=== PATIENT | male | born 1935 | race Caucasian/White ===

== ENCOUNTER 2018-10-06 08:27 | Inpatient (IN) | payer MEDICARE, OTHER ==
[2018-10-06] VITALS (15 sets, daily range): BP systolic 106–134; BP diastolic 65–101
[~2018-10-06] VITALS: Ht 177.8 cm; Wt 78.4 kg
[2018-10-06] MEDS ORDERED: PIPERACILLIN SODIUM/TAZOBACTAM 4.5 GM in NS (IVPB) 100 ML IV SCH (12:00)
--- NOTE | 2018-10-06 12:01 | History & Physical-Hospitalist ---
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 He states that he was seen by his PCP 1 week ago and told he had bronchitis and started on a z pack and prednisone. Despite this he continued to worsen. He reports vague symptoms though of his worsening. He states he "just didn't feel right" and "had a gut feeling" something was wrong. He denies fevers and when asked states he has been coughing up blood clots. He denies any other bleeding. He was found to have an INR of 11.9 though there. He was also found to meet sepsis criteria with a leukocytosis and tachycardia. He was transferred here for admission due to staffing at outside facility. Exam Limitations: no limitations Date Seen 10/06/18 Time Seen by a Provider: 11:55 Attending Physician Tammie Anne MD PCP Joséu Hager MD Referring Physician Date of Admission Home Medications & Allergies Home Medications Reviewed patient Home Medication Reconciliation performed by pharmacy medication reconciliations fiberglass technician and/or nursing. Patients Allergies have been reviewed. Allergies Allergies Coded Allergies morphine (Verified Adverse Reaction, Unknown, 10/06/18) confusion Past Vnttutd-Wkssoa-Jrxkma Hx Past Med/Social Hx: Reviewed Nursing Past Med/Soc Hx Patient Social History Alcohol Use: Regular Use (2-3 shots of jagermeister daily) Alcohol Beverage of Choice: Other Recreational Drug Use: No Smoking Status: Former Smoker (quit 2 years ago) Type Used: Cigarettes Physical Abuse Screen: No Sexual Abuse: No Recent Foreign Travel: No Contact w/other who traveled: No Recent Hopitalizations: Yes Recent Infectious Disease Expo: No Immunizations Up To Date Pediatric: No Date of Pneumonia Vaccine: Sep 18, 2018 Date of Influenza Vaccine: Aug 06, 2018 Seasonal Allergies Seasonal Allergies: No Past Medical History Currently Using CPAP: No Currently Using BIPAP: No Cardiac: Deep Vein Thrombosis, High Cholesterol Genitourinary: Benign Prostatic Hyperpl Musculoskeletal: Arthritis, Back Injury, Scoliosis History of Blood Disorders: No Adverse Reaction to Blood Romero: No Family History Reviewed Nursing Family Hx Review of Systems Constitutional: see HPI EENTM: no symptoms reported Respiratory: cough, dyspnea on exertion, hemoptysis, short of breath Cardiovascular: no symptoms reported Gastrointestinal: no symptoms reported Genitourinary: no symptoms reported Musculoskeletal: no symptoms reported Skin: no symptoms reported Psychiatric/Neurological: No Symptoms Reported Physical Exam Physical Exam Vital Signs Vital Signs - First Documented 10/06/18 11:21 Temp 98.2 Capillary Refill : Height, Weight, BMI Height: 5'10.00" Weight: 177lbs. 9.0oz. 80.037521gz; 25.5 BMI Method: General Appearance: No Apparent Distress, Chronically ill Respiratory: Decreased Breath Sounds; No Wheezing Cardiovascular: No Murmur, Tachycardia Gastrointestinal: Normal Bowel Sounds, Non Tender, Soft Extremity: No Calf Tenderness, No Pedal Edema Neurologic/Psychiatric: Alert, Oriented x3 Results Results/Procedures Labs Patient resulted labs reviewed. Assessment/Plan Admission Diagnosis Sepsis, supratherapeutic INR Admission Status: Inpatient Order (span 2 midnights) Reason for Inpatient Admission: Failed outpatient antibiotics, on 10lpm oxygne- new requirement, will take more than two midnights to stablize Diagnosis/Problems Diagnosis/Problems (1) Sepsis Status: Acute Assessment & Plan: Leukocytosis with tachycardia Received Levaquin at outside facility Given INR switch to Zosyn Lactic acid normal at OSH Await cultures Qualifiers: Sepsis type: sepsis due to unspecified organism Qualified Codes: A41.9 - Sepsis, unspecified organism (2) CAP (community acquired pneumonia) Assessment & Plan: CXR per OSH Antibiotics as above Pulm consulted, appreciate recs Qualifiers: Laterality: left Lung location: lower lobe of lung Qualified Codes: J18.1 - Lobar pneumonia, unspecified organism (3) Acute respiratory failure Assessment & Plan: Hypoxemic on ABG from outside facility Requiring 10lpm via HFNC currently DNR Pulm consulted MAT protocol Palliative Care consult placed Qualifiers: Respiratory failure complication: hypoxia Qualified Codes: J96.01 - Acute respiratory failure with hypoxia (4) Supratherapeutic INR Assessment & Plan: INR 11.9 at OSH Likely multifactorial to abx use and alcohol use with chronic coumadin DVT diagnosed in April- march be able to DC anticoagulation at DC Received Vitamin K Will repeat INR (5) DVT (deep venous thrombosis) Status: Acute Assessment & Plan: Diagnosed in April and was to complete treatment in October Patient unsure of date Hold Warfarin Qualifiers: DVT location: lower extremity Affected thrombotic vein of extremity: unspecified vein of extremity Chronicity: unspecified Laterality: left Qualified Codes: I82.402 - Acute embolism and thrombosis of unspecified deep veins of left lower extremity (6) Alcohol dependence Assessment & Plan: Reports regular use CIWA protocol Qualifiers: Substance use status: unspecified alcohol-induced disorder Qualified Codes : F10.29 - Alcohol dependence with unspecified alcohol-induced disorder (7) Counseling regarding end of life decision making Assessment & Plan: Given high oxygen demands discussed with patient about potential escalation of care States he would like to be a DNR and unsure about BiPAP use No DPOA assigned but verbal stated son Sam as emergency contact ([phone]) Palliative Care Consult placed Clinical Quality Measures DVT/VTE Risk/Contraindication: Risk Factor Score Per Nursin RFS Level Per Nursing on Admit: 4+=Very High TAMMIE ANNE MD Oct 06, 2018 12:01
[2018-10-06] MEDS ORDERED: PIPERACILLIN/TAZO 4.5 GM/NS 100 ML IV NR ×2 (12:15)
[2018-10-06] MEDS ORDERED: CATHETER FLUSH 10 ML SYR IV PRN (12:30)
[2018-10-06] MEDS ORDERED: RT-ALBUTEROL/IPRATROPIUM 3 ML (DUONEB) VIAL INH PRN (12:30)
[2018-10-06] MEDS: CATHETER FLUSH 10 ML SYR IV SCH ×3 (12:59→23:20)
--- NOTE | 2018-10-06 13:01 | Pulmonary Consultation ---
History of Present Illness History of Present Illness Date of Consultation 10/06/18 12:56 Date of Admission Allergies and Home Medications Allergies Coded Allergies: morphine (Verified Adverse Reaction, Unknown, 10/06/18) confusion Past Ujikwvj-Ktoglg-Hvotot Hx Past Med/Social Hx: Reviewed Nursing Past Med/Soc Hx Patient Social History Alcohol Use: Regular Use (2-3 shots of jagermeister daily) Alcohol Beverage of Choice: Other Recreational Drug Use: No Smoking Status: Former Smoker (quit 2 years ago) Type Used: Cigarettes Recent Foreign Travel: No Contact w/Someone Who Travel: No Recent Infectious Disease Expo: No Recent Hopitalizations: Yes Immunizations Up To Date PED Vaccines UTD: No Date of Pneumonia Vaccine: Sep 18, 2018 Date of Influenza Vaccine: Aug 06, 2018 Seasonal Allergies Seasonal Allergies: No Past Medical History Surgeries: Yes Respiratory: Yes Pneumonia, COPD Currently Using CPAP: No Currently Using BIPAP: No Cardiac: Yes Deep Vein Thrombosis, High Cholesterol Neurological: No Genitourinary: Yes Benign Prostatic Hyperpl Gastrointestinal: Yes (duodenitis) Musculoskeletal: Yes Arthritis, Back Injury, Scoliosis Endocrine: No HEENT: No Cancer: No Psychosocial: No Integumentary: No Blood Disorders: No Adverse Reaction/Blood Tranf: No Family Medical History Reviewed Nursing Family Hx Sepsis Event Evaluation Height, Weight, BMI Height: 5'10.00" Weight: 177lbs. 9.0oz. 80.521037zu; 25.5 BMI Method: Exam Exam Vital Signs Date Time Temp Pulse Resp B/P (MAP) Pulse Ox O2 Delivery O2 Flow Rate FiO2 10/06/18 12:10 92 High Flow N/C 10.00 10/06/18 12:10 105 92 10/06/18 11:21 98.2 10/06/18 10:43 109 Height & Weight Height: 5'10.00" Weight: 177lbs. 9.0oz. 80.153594fw; 25.5 BMI Method: General Appearance: No Apparent Distress, Chronically ill Respiratory: Decreased Breath Sounds; No Wheezing Cardiovascular: No Murmur, Tachycardia Extremity: No Calf Tenderness, No Pedal Edema Neurologic/Psychiatric: Alert, Oriented x3 Assessment/Plan Assessment/Plan Acute respiratory failure with hypoxia -Oxygen - will add Vapotherm Pneumonia with sepsis -Agree with Zosyn -Check Ct of chest without contrast Coumadin coagulopathy -repeat labs pending -Monitor -Repeat Coags pending Alcohol dependance -Monitor Hx of DVT MARCO ANTONIO BATISTA DO Oct 06, 2018 13:01
[2018-10-06] MEDS ORDERED: PANT40TA3 PO (14:09)
[2018-10-06] MEDS ORDERED: ALPR0.5T7 PO (14:09)
[2018-10-06] MEDS ORDERED: METH4TAB PO (14:09)
[2018-10-06] MEDS ORDERED: CELE-63 PO (14:09)
[2018-10-06] MEDS ORDERED: WARF-48 PO ×2 (14:09→14:24)
[2018-10-06] MEDS ORDERED: RT-ALBUINH INH (14:09)
[2018-10-06] MEDS: RT-ALBUTEROL/IPRATROPIUM 3 ML (DUONEB) VIAL INH SCH ×3 (15:44→22:49)
--- NOTE | 2018-10-06 18:22 | Diagnostic Imaging Report ---
PROCEDURE: CT chest without contrast. TECHNIQUE: Multiple contiguous axial images were obtained through the chest without the use of intravenous contrast. INDICATION: Pneumonia and shortness of breath. COMPARISON: No comparison is available. FINDINGS: There is a large region of dense consolidation demonstrated within the left lower lobe with more moderate consolidation present within the posterior aspect of the left upper lobe and within the right lower lobe dependently at the right lung base. Additionally some scattered alveolar opacification within the right upper lobe which may be more chronic in nature as there appears to be some associated bronchiectasis. Left greater than right pleural effusions are present. There is no pneumothorax. The findings are most suggestive of a multilobar pneumonia but would need to be followed to resolution to exclude the possibility of an underlying mass. There are no pathologically enlarged mediastinal lymph nodes evident. The thoracic aorta is normal in caliber. There are coronary calcifications. There is no pericardial effusion. The visualized portion of the upper abdomen demonstrates no acute process. There is a nonspecific right adrenal nodule. This is of low density suggesting that this is an adenoma but could also be reassessed on subsequent followup. There are multilevel degenerative endplate changes and facet arthropathy present throughout the thoracic spine but no findings of an acute osseous injury or suspicious marrow-replacing lesion. IMPRESSION: 1. Multilobar abnormal alveolar consolidation within the lungs, most advanced within the left lower lobe but also involving the left upper lobe, the right upper lobe, and right lower lobe. There are left greater than right pleural effusions. The findings are most suggestive of a multilobar pneumonia though do need to be followed to resolution to exclude the possibility of an underlying mass. 2. No evidence of pathologic mediastinal adenopathy. 3. Upper abdomen demonstrates a low-density right adrenal nodule, most suggestive of an adenoma. 4. Thoracic degenerative disc disease and facet arthropathy without acute or suspicious osseous abnormality. Dictated by: Dictated on workstation # [id number]
[2018-10-06] MEDS ORDERED: NS IV 1000 ML 1,000 ML ONE (18:27)
[2018-10-06] MEDS ORDERED: LIDOCAINE JELLY 2% (XYLOCAINE) 5 ML TUBE TOP ONE (19:00)
[2018-10-06] MEDS ORDERED: ACETAMINOPHEN 500 MG TAB (TYLENOL) PO PRN (19:15)
[2018-10-06] MEDS ORDERED: BENZONATATE 100 MG (TESSALON) CAPSULE PO PRN (19:15)
[2018-10-06] MEDS ORDERED: ONDANSETRON 4 MG/2 ML (SDV) Z0FRAN IV PRN (19:15)
[2018-10-06] MEDS ORDERED: ANTACID SUSP 30 ML UDC (MYLANTA) PO PRN (19:15)
[2018-10-06] MEDS ORDERED: MELATONIN 3 MG TABLET PO PRN (19:15)
[2018-10-06] MEDS ORDERED: MILK OF MAGNESIA 400 MG/5 ML 30 ML UDC PO PRN (19:15)
[2018-10-06] MEDS: PIPERACILLIN/TAZO 4.5 GM/NS 100 ML IV SCH ×2 (19:47)
[2018-10-06] MEDS: NS IV 1000 ML 1,000 ML IV SCH (19:47)
[2018-10-06 19:55] LABS: BASOPHILS # (AUTO) 0.1 10^3/uL (0.0-0.1); BASOPHILS % (AUTO) 0 % (0-10); EOSINOPHILS % (AUTO) 0 % (0-10); HEMATOCRIT 37 % (40-54); HEMOGLOBIN 12.1 G/DL (13.3-17.7); LYMPHOCYTES # (AUTO) 0.6 X 10^3 (1.0-4.0); LYMPHOCYTES % (AUTO) 3 % (12-44); MEAN CORPUSCULAR HEMOGLOBIN 29 PG (25-34); MEAN CORPUSCULAR HGB CONC 33 G/DL (32-36); MEAN CORPUSCULAR VOLUME 87 FL (80-99); MONOCYTES # (AUTO) 1.2 X 10^3 (0.0-1.0); MONOCYTES % (AUTO) 5 % (0-12); NEUTROPHILS # (AUTO) 20.7 X 10^3 (1.8-7.8); NEUTROPHILS % (AUTO) 92 % (42-75); PLATELET COUNT 216 10^3/uL (130-400); RED BLOOD COUNT 4.21 10^6/uL (4.35-5.85); RED CELL DISTRIBUTION WIDTH 16.1 % (10.0-14.5); WHITE BLOOD COUNT 22.6 10^3/uL (4.3-11.0)
[2018-10-06 20:09] LABS: CREATININE SERUM 1.74 MG/DL (0.60-1.30); POTASSIUM 4.8 MMOL/L (3.6-5.0)
[2018-10-06 20:10] LABS: INR 4.4 (0.8-1.4); PROTHROMBIN TIME PATIENT 42.5 SEC (12.2-14.7)
[2018-10-06 20:24] LABS: BAND NEUTROPHILS 24 %; BASOPHILS % (MANUAL) 0 %; EOSINOPHILS % (MANUAL) 0 %; LYMPHOCYTES % (MANUAL) 7 %; METAMYELOCYTES % 1 %; MONOCYTES % (MANUAL) 2 %; NEUTROPHILS % (MANUAL) 66 %; RBC MORPH NORMAL
[2018-10-06 20:25] LABS: TOXIC GRANULATION/VACUOLAZATIO 1+
[2018-10-06 20:29] LABS: BILIRUBIN,URINE NEGATIVE (NEGATIVE); CLARITY,URINE CLEAR; COLOR,URINE YELLOW; GLUCOSE, URINE (UA) NEGATIVE (NEGATIVE); KETONES,URINE NEGATIVE (NEGATIVE); LEUKOCYTE ESTERASE ,URINE 1+ (NEGATIVE); NITRITE,URINE NEGATIVE (NEGATIVE); PH,URINE 5 (5-9); PROTEIN,URINE 2+ (NEGATIVE); UROBILINOGEN,URINE 1 MG/DL (NORMAL)
[2018-10-06 20:38] LABS: AMORPHOUS SEDIMENT,UR FEW AMOR URATES /LPF; RBC,URINE 0-2 /HPF; WBC,URINE 0-2 /HPF
[2018-10-06] MEDS: TAMSULOSIN 0.4 MG (FLOMAX) CAP PO SCH (21:08)
[2018-10-07] VITALS (21 sets, daily range): BP systolic 94–143; BP diastolic 53–88
[2018-10-07] MEDS: RT-ALBUTEROL/IPRATROPIUM 3 ML (DUONEB) VIAL INH SCH ×6 (02:29→22:28)
[2018-10-07 03:53] LABS: BASOPHILS % (AUTO) 0 % (0-10); EOSINOPHILS % (AUTO) 0 % (0-10); HEMATOCRIT 35 % (40-54); HEMOGLOBIN 11.8 G/DL (13.3-17.7); LYMPHOCYTES # (AUTO) 1.1 X 10^3 (1.0-4.0); LYMPHOCYTES % (AUTO) 6 % (12-44); MEAN CORPUSCULAR HEMOGLOBIN 30 PG (25-34); MEAN CORPUSCULAR HGB CONC 34 G/DL (32-36); MEAN CORPUSCULAR VOLUME 87 FL (80-99); MEAN PLATELET VOLUME 9.9 FL (7.4-10.4); MONOCYTES % (AUTO) 5 % (0-12); NEUTROPHILS # (AUTO) 16.7 X 10^3 (1.8-7.8); NEUTROPHILS % (AUTO) 89 % (42-75); PLATELET COUNT 236 10^3/uL (130-400); RED BLOOD COUNT 3.99 10^6/uL (4.35-5.85); RED CELL DISTRIBUTION WIDTH 16.3 % (10.0-14.5); WHITE BLOOD COUNT 18.7 10^3/uL (4.3-11.0)
[2018-10-07] MEDS: PIPERACILLIN/TAZO 4.5 GM/NS 100 ML IV SCH ×6 (03:59→18:00)
[2018-10-07] MEDS: NS IV 1000 ML 1,000 ML IV SCH (03:59)
[2018-10-07 04:06] LABS: INR 2.9 (0.8-1.4); PROTHROMBIN TIME PATIENT 30.4 SEC (12.2-14.7)
[2018-10-07 04:31] LABS: CREATININE SERUM 1.54 MG/DL (0.60-1.30); POTASSIUM 4.6 MMOL/L (3.6-5.0)
[2018-10-07 04:32] LABS: ALBUMIN 2.5 GM/DL (3.2-4.5); BILIRUBIN,TOTAL 1.5 MG/DL (0.1-1.0); CALCIUM 9.1 MG/DL (8.5-10.1); TOTAL PROTEIN 5.6 GM/DL (6.4-8.2)
--- NOTE | 2018-10-07 05:12 | Pulmonary Progress Note ---
Subjective Time Seen by a Provider: 05:19 Subjective/Events-last exam Pt is requiring more oxygen. 100% Fi02 via Vapotherm. Sepsis Event Evaluation Height, Weight, BMI Height: 5'10.00" Weight: 177lbs. 9.0oz. 80.687174mn; 25.5 BMI Method: Exam Exam Vital Signs Date Time Temp Pulse Resp B/P (MAP) Pulse Ox O2 Delivery O2 Flow Rate FiO2 10/07/18 04:00 Vapotherm 10/07/18 04:00 97.5 84 22 109/72 (84) 94 Vapotherm 100.00 15.00 10/07/18 03:00 90 33 108/69 (82) 95 Vapotherm 100.00 15.00 10/07/18 02:29 96 Vapotherm 20.00 100 10/07/18 02:00 79 21 111/74 (86) 97 Vapotherm 100.00 20.00 10/07/18 01:00 80 31 104/70 (81) 96 Vapotherm 100.00 20.00 10/07/18 00:54 82 10/07/18 00:00 Vapotherm 25.00 100 10/07/18 00:00 93 23 104/67 (79) 94 Vapotherm 100.00 20.00 10/07/18 00:00 97.4 10/06/18 23:00 97 32 128/74 (92) 94 Vapotherm 100.00 20.00 10/06/18 22:50 96 Vapotherm 25.00 100 10/06/18 22:00 97 32 128/74 (92) 94 Vapotherm 100.00 25.00 10/06/18 21:00 Vapotherm 25.00 100 10/06/18 21:00 98 23 122/79 (93) 94 Vapotherm 100.00 25.00 10/06/18 20:00 92 10 125/83 (97) 99 Vapotherm 100.00 25.00 10/06/18 20:00 Vapotherm 25.00 100 10/06/18 19:00 98 10/06/18 19:00 98.9 97 30 115/86 (96) 93 Vapotherm 100.00 25.00 10/06/18 19:00 98 27 124/81 (95) 96 10/06/18 18:00 96 33 124/78 (93) 87 10/06/18 17:00 89 21 106/72 (83) 94 10/06/18 16:00 101 20 117/75 (89) 94 10/06/18 15:55 Vapotherm 25.00 100 10/06/18 15:54 98.4 10/06/18 15:44 95 Vapotherm 25.00 100 10/06/18 13:00 99 10/06/18 12:10 92 High Flow N/C 10.00 10/06/18 12:10 105 92 10/06/18 12:00 High Flow N/C 10.00 10/06/18 12:00 101 16 111/70 (84) 92 10/06/18 11:45 110 21 133/101 (112) 88 10/06/18 11:30 110 22 123/83 (96) 90 10/06/18 11:21 98.2 10/06/18 11:15 110 26 134/89 (104) 93 10/06/18 11:00 105 27 121/74 (90) 92 10/06/18 10:45 105 27 111/71 (84) 92 10/06/18 10:43 109 10/06/18 10:30 High Flow N/C 10.00 10/06/18 10:30 High Flow N/C 10.00 I & O 10/07/18 07:00 Intake Total 100 ml Output Total 950 ml Balance -850 ml Height & Weight Height: 5'10.00" Weight: 177lbs. 9.0oz. 80.076096ba; 25.5 BMI Method: General Appearance: No Apparent Distress, Chronically ill Respiratory: Decreased Breath Sounds; No Wheezing Cardiovascular: No Murmur, Tachycardia Extremity: No Calf Tenderness, No Pedal Edema Neurologic/Psychiatric: Alert, Oriented x3 Results Lab Laboratory Tests 10/06/18 19:37 10/07/18 03:00 Assessment/Plan Assessment/Plan Acute respiratory failure with hypoxia -Oxygen - will add Vapotherm -Pt is requiring 95% via Vapotherm Pneumonia with sepsis -Agree with Zosyn -CT of chest shows pneumonia bilateral and small amount of L>R pleural effusions -IS Metabolic acidosis -IVF -repeat LA Hypercalcemia -PTH, TSH -Ionize calcium hyperbilirubinemia, elevated alk phos -Abd US PACO -IVF Coumadin coagulopathy -repeat labs pending -Monitor -Repeat Coags pending Alcohol dependance -Monitor Hx of DVT MARCO ANTONIO BATISTA DO Oct 07, 2018 05:12
--- NOTE | 2018-10-07 07:25 | Diagnostic Imaging Report ---
INDICATION: Shortness of breath and pneumonia. FINDINGS: There is cardiomegaly. There is some central pulmonary venous congestion. There are also bilateral pulmonary infiltrates left greater than right. There is a left pleural effusion. There is no pneumothorax. Mediastinum is unremarkable. IMPRESSION: Bilateral pulmonary infiltrates left greater than right. Cardiomegaly and some central pulmonary venous congestion. Dictated by: Dictated on workstation # [id number]
[2018-10-07] MEDS ORDERED: NS IV 1000 ML 0 ML ONE (07:39)
--- NOTE | 2018-10-07 10:24 | Diagnostic Imaging Report ---
PROCEDURE: US abdomen complete. TECHNIQUE: Multiple Real-time grayscale images were obtained over the abdomen in various projections. INDICATION: Elevated bilirubin and alkaline phosphatase. COMPARISON: None available. FINDINGS: The liver is normal in size (16 cm in craniocaudal length) and echogenicity. There is no focal hepatic mass or nodularity of the liver surface to indicate cirrhosis by ultrasound. The main portal vein is patent with antegrade flow. The gallbladder is distended without gallstones, wall thickening, or pericholecystic fluid. The common bile duct is obscured by bowel gas. The pancreas is obscured by bowel gas. The kidneys are normal in size. No hydronephrosis, shadowing calculi, or suspicious mass lesion. The spleen is normal in size (13 cm) and without focal lesion. The aorta and IVC are obscured by overlying bowel gas. No ascites in the upper abdomen. IMPRESSION: 1. Normal sonographic appearance of the liver. Specifically, there are no features of cirrhosis or neoplasm. 2. Normal gallbladder. The common bile duct is obscured by bowel gas but there is no intrahepatic biliary duct dilatation. Dictated by: Dictated on workstation # [id number]
--- NOTE | 2018-10-07 12:22 | Progress Note-Hospitalist ---
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 He states that he was seen by his PCP 1 week ago and told he had bronchitis and started on a z pack and prednisone. Despite this he continued to worsen. He reports vague symptoms though of his worsening. He states he "just didn't feel right" and "had a gut feeling" something was wrong. He denies fevers and when asked states he has been coughing up blood clots. He denies any other bleeding. He was found to have an INR of 11.9 though there. He was also found to meet sepsis criteria with a leukocytosis and tachycardia. He was transferred here for admission due to staffing at outside facility. Subjective/Events-last exam Pt reports feeling about the same. Still having cough. Breathing slightly better. Focused Exam Lactate Level 10/07/18 05:25: Lactic Acid Level 0.92 Objective Exam Vital Signs Vital Signs Date Time Temp Pulse Resp B/P (MAP) Pulse Ox O2 Delivery O2 Flow Rate FiO2 10/07/18 11:45 Vapotherm 10.00 95 10/07/18 11:00 107 34 120/53 (75) 89 10/07/18 09:30 96.8 Capillary Refill : General Appearance: No Apparent Distress, Chronically ill Respiratory: No Accessory Muscle Use, No Respiratory Distress, Decreased Breath Sounds, Other (on Vapotherm) Cardiovascular: Regular Rate, Rhythm, No Murmur Neurologic/Psychiatric: Alert, Oriented x3 Results/Procedures Lab Laboratory Tests 10/06/18 19:37 10/07/18 03:00 Patient resulted labs reviewed. Assessment/Plan Assessment and Plan Assess & Plan/Chief Complaint Acute respiratory failure Diagnosis/Problems Diagnosis/Problems (1) Sepsis Status: Acute Assessment & Plan: Leukocytosis with tachycardia Continue Zosyn, await cultures Lactic acid normal at OSH CT reveals multilobar pneumonia and still requiring high level of oxygen Qualifiers: Sepsis type: sepsis due to unspecified organism Qualified Codes: A41.9 - Sepsis, unspecified organism (2) CAP (community acquired pneumonia) Assessment & Plan: Antibiotics as above Pulm consulted, appreciate recs CT with multilobar pneumonia Sputum culture ordered Qualifiers: Laterality: left Lung location: lower lobe of lung Qualified Codes: J18.1 - Lobar pneumonia, unspecified organism (3) Acute respiratory failure Assessment & Plan: Currently on Vapotherm 100% FiO2 at 15lpm DNR Pulm consulted MAT protocol Palliative Care consult placed Likely has underlying COPD and chronic hypoxia Titrate to keep sats greater than 90 Qualifiers: Respiratory failure complication: hypoxia Qualified Codes: J96.01 - Acute respiratory failure with hypoxia (4) Supratherapeutic INR Assessment & Plan: INR 11.9 at OSH Likely multifactorial to abx use and alcohol use with chronic coumadin DVT diagnosed in April- march be able to DC anticoagulation at DC INR improved to 2.9 today (5) DVT (deep venous thrombosis) Status: Acute Assessment & Plan: Diagnosed in April and was to complete treatment in October Patient unsure of date Hold Warfarin as INR still at upper limits of therapeutic level Qualifiers: DVT location: lower extremity Affected thrombotic vein of extremity: unspecified vein of extremity Chronicity: unspecified Laterality: left Qualified Codes: I82.402 - Acute embolism and thrombosis of unspecified deep veins of left lower extremity (6) Alcohol dependence Assessment & Plan: Reports regular use CIWA protocol Qualifiers: Substance use status: unspecified alcohol-induced disorder Qualified Codes : F10.29 - Alcohol dependence with unspecified alcohol-induced disorder (7) Counseling regarding end of life decision making Assessment & Plan: Given high oxygen demands discussed with patient about potential escalation of care States he would like to be a DNR and unsure about BiPAP use Advance Directive consult placed Palliative Care Consult placed Clinical Quality Measures DVT/VTE Risk/Contraindication: Risk Factor Score Per Nursin RFS Level Per Nursing on Admit: 4+=Very High TAMMIE SCHULZ MD Oct 07, 2018 12:22
--- NOTE | 2018-10-07 14:22 | Physical Therapy Evaluation ---
PT Evaluation-General Medical Diagnosis Admission Date Oct 06, 2018 at 11:56 Medical Diagnosis: sepsis Onset Date: Oct 06, 2018 Therapy Diagnosis Therapy Diagnosis: impaired mobility, endurance Height/Weight Height (Feet): 5 Height (Inches): 10.00 Weight (Pounds): 177 Weight (Ounces): 9.0 Precautions Precautions/Isolations: Fall Prevention, Standard Precautions Weight Bear Status Right Lower Extremity: Right Weight Bearing/Tolerated Left Lower Extremity: Left Weight Bearing/Tolerated Referral Physician: Veronica Anne Reason for Referral: Evaluation/Treatment Medical History Pertinent Medical History: Arthritis, Smoking Additional Medical History DVT, high cholesterol, BPH, back injury, scoliosis Current History went to ER with SOB Social History PT Steps Into Home: 3 Patient is unwilling to answer questions about his home or environment. He states "I'm not going to talk about that, if I can get along at home I can, if I can't I can't." Prior/Core FIM Prior Level of Function Therapy Code Descriptions/Definitions Functional [place] Measure: 0=Not Assessed/NA 4=Minimal Assistance 1=Total Assistance 5=Supervision or Setup 2=Maximal Assistance 6=Modified [place] 3=Moderate Assistance 7=Complete [place] Therapy Quality Codes: 6 Independent with activity with or without an assistive device 5 Patient requires set up or clean up by helper. Patient completes activity by themselves 4 Supervision or touching assist (CGA). [place] provide cues , steadying assist 3 The helper provides less than half the effort to complete the activity 2 The helper provides more than half the effort to complete the activity 1 Dependent. The helper does all the effort to complete an activity 7 Patient refused to complete or attempt activity 9 The patient did not perform the activity before the current illness or injury 88 Not attempted due to Medical conditions or safety concerns Functional Abilities and Goals: Independent: Patient completed the activities by him/herself, with or without an assistive device, with no assistance from a helper. Needed Some Help: Patient needed partial assistance from another person to complete activities. Dependent: A helper completed the activities for the patient. Unknown: Not Applicable: Bed Mobility: 7 Transfers (B,C,W/C) (FIM): 7 Gait: 7 Indoor Mobility (Ambulation): Independent Stairs: Independent PT Evaluation-Current Subjective Patient in bed pre tx, agrees to participate with PT after encouragement from nursing. Patient has no complaints of pain other than unrated pain when he coughs. Patient is very upset about his healthcare. He will not let therapist perform an examination but will walk in the hallway. He has a vapotherm. Nurse is willing to put him on nasal canula at 10L. Patient is very impulsive and unconcerned about attachments. Patient doesn't want to use a rolling walker until he stands, then wants to use one, then after about 5 feet he insists on incorrectly using the walker with just the left hand to the side of him with his urinary catheter attached. At first he refuses to ambulate with oxygen and his sats go down to mid 80's, nurse then puts it on at 10L. Pt/Family Goals Patient in recliner post tx with nurse call, phone, tray, all needs met. Objective Patient Orientation: Person Attachments: Oxygen, [place]ome Catheter Sensory Hearing: Functional Transfers Therapy Code Descriptions/Definitions Functional [place] Measure: 0=Not Assessed/NA 4=Minimal Assistance 1=Total Assistance 5=Supervision or Setup 2=Maximal Assistance 6=Modified [place] 3=Moderate Assistance 7=Complete [place] Transfers (B, C, W/C) (FIM): 5 Scootin Rollin Supine to/from Sit: 5 Sit to/from Stand: 5 Gait Mode of Locomotion: Walk Anticipated Mode of Locomotion: Walk Gait (FIM): 5 Distance: 100'x2 Gait Level of Assist: 5 Gait Persons Needed: 1 Gait Assistive Device: FWW Comments/Gait Description Patient gets very SOB and needed sitting rest break. Balance Sitting Static: Normal Sitting Dynamic: Normal Standing Static: Good Standing Dynamic: Good Assessment/Needs Patient seems unwilling to admit or maybe care that he has issues with oxygen sats and endurance and will push himself to dangerous levels. Rehab Potential: Guarded PT Short Term Goals Short Term Goals Time Frame: Oct 14, 2018 Transfers (B,C,W/C) (FIM): 6 Gait (FIM): 6 Gait Distance Comment: 150' Gait Level of Assist: 6 Gait Assistive Device: FWW PT Plan Problem List Problem List: Activity Tolerance, Functional Strength, Safety, Balance, Gait, Transfer, Bed Mobility Treatment/Plan Treatment Plan: Continue Plan of Care Treatment Plan: Bed Mobility, Education, Functional Activity Adam, Functional Strength, Gait, Safety, Therapeutic Exercise, Transfers Treatment Duration: Oct 14, 2018 Frequency: 6 times per week Estimated Hrs Per Day: .25 hour per day (15-30') Patient and/or Family Agrees t: Yes Safety Risks/Education Patient Education: Gait Training, Transfer Techniques, Correct Positioning, Safety Issues Teaching Recipient: Patient Teaching Methods: Demonstration, Discussion Response to Teaching: Reinforcement Needed Discharge Recommendations Plan Patient will perform bed mobility and transfer training, balance and endurance training, functional strengthening, stair training, gait training, and education to improve functional mobility and independence at home. Therapy D/C Recommendations: Home w/ Family Support, Correction (TCU/NH) Time/GCodes Time In: 1330 Time Out: 1410 Total Billed Treatment Time: 40 Total Billed Treatment 1 visit EVM 40' ALEJANDRA GARSIA PT Oct 07, 2018 14:22
[2018-10-07] MEDS: CATHETER FLUSH 10 ML SYR IV SCH ×2 (14:29→22:03)
[2018-10-07] MEDS: TAMSULOSIN 0.4 MG (FLOMAX) CAP PO SCH (18:00)
[2018-10-07] MEDS: ALPRAZolam 0.5 MG (XANAX) TAB PO PRN (22:03)
[2018-10-07] MEDS: ACETAMINOPHEN 325 MG TABLET PO PRN (22:03)
[2018-10-08] VITALS (15 sets, daily range): BP systolic 104–156; BP diastolic 60–107
[2018-10-08] MEDS: RT-ALBUTEROL/IPRATROPIUM 3 ML (DUONEB) VIAL INH SCH ×5 (02:45→18:58)
[2018-10-08 03:24] LABS: BASOPHILS # (AUTO) 0.1 10^3/uL (0.0-0.1); BASOPHILS % (AUTO) 0 % (0-10); EOSINOPHILS # (AUTO) 0.2 10^3/uL (0.0-0.3); EOSINOPHILS % (AUTO) 1 % (0-10); HEMATOCRIT 35 % (40-54); HEMOGLOBIN 11.5 G/DL (13.3-17.7); LYMPHOCYTES # (AUTO) 1.5 X 10^3 (1.0-4.0); LYMPHOCYTES % (AUTO) 9 % (12-44); MEAN CORPUSCULAR HEMOGLOBIN 29 PG (25-34); MEAN CORPUSCULAR HGB CONC 33 G/DL (32-36); MEAN CORPUSCULAR VOLUME 87 FL (80-99); MEAN PLATELET VOLUME 9.2 FL (7.4-10.4); MONOCYTES # (AUTO) 0.7 X 10^3 (0.0-1.0); MONOCYTES % (AUTO) 5 % (0-12); NEUTROPHILS # (AUTO) 13.5 X 10^3 (1.8-7.8); NEUTROPHILS % (AUTO) 85 % (42-75); PLATELET COUNT 257 10^3/uL (130-400); RED CELL DISTRIBUTION WIDTH 15.9 % (10.0-14.5); WHITE BLOOD COUNT 15.9 10^3/uL (4.3-11.0)
[2018-10-08 03:35] LABS: INR 1.6 (0.8-1.4)
[2018-10-08 03:43] LABS: CALCIUM 9.2 MG/DL (8.5-10.1); CREATININE SERUM 1.54 MG/DL (0.60-1.30); MAGNESIUM 1.9 MG/DL (1.8-2.4); PHOSPHORUS 3.8 MG/DL (2.3-4.7); POTASSIUM 4.4 MMOL/L (3.6-5.0)
[2018-10-08] MEDS: PIPERACILLIN/TAZO 4.5 GM/NS 100 ML IV SCH ×6 (04:10→18:06)
--- NOTE | 2018-10-08 05:57 | Pulmonary Progress Note ---
Sepsis Event Evaluation Height, Weight, BMI Height: 5'10.00" Weight: 177lbs. 9.0oz. 80.971909vi; 25.5 BMI Method: Focused Exam Lactate Level 10/07/18 05:25: Lactic Acid Level 0.92 Exam Exam Vital Signs Date Time Temp Pulse Resp B/P (MAP) Pulse Ox O2 Delivery O2 Flow Rate FiO2 10/08/18 04:00 75 23 133/78 (96) 95 Vapotherm 85.00 10.00 10/08/18 04:00 Vapotherm 10.00 90 10/08/18 03:00 89 14 136/85 (102) 94 Vapotherm 85.00 10.00 10/08/18 02:45 92 Vapotherm 10.00 85 10/08/18 02:45 96 Vapotherm 10.00 85 10/08/18 02:00 85 24 140/107 (118) 90 Vapotherm 85.00 10.00 10/08/18 01:00 91 10/08/18 01:00 91 19 129/85 (100) 91 Vapotherm 90.00 10.00 10/08/18 00:00 Vapotherm 10.00 90 10/08/18 00:00 87 22 110/66 (81) 92 Vapotherm 90.00 10.00 10/07/18 22:28 96 Vapotherm 10.00 90 10/07/18 22:00 93 29 131/73 (92) 95 Vapotherm 90.00 10.00 10/07/18 21:00 Vapotherm 10.00 90 10/07/18 21:00 100 24 94/81 (85) 95 Vapotherm 90.00 10.00 10/07/18 20:00 112 35 128/85 (99) 93 Vapotherm 90.00 10.00 10/07/18 20:00 Vapotherm 10.00 90 10/07/18 19:43 99.5 Vapotherm 90.00 10.00 10/07/18 19:00 102 10/07/18 19:00 98 31 133/78 (96) 97 Vapotherm 95.00 10.00 10/07/18 18:59 94 Vapotherm 10.00 95 10/07/18 18:00 96 43 122/69 (86) 96 Vapotherm 95.00 10.00 10/07/18 17:00 105 25 110/68 (82) 96 Vapotherm 95.00 10.00 10/07/18 16:00 120 24 114/63 (80) 91 Vapotherm 95.00 10.00 10/07/18 15:47 97.0 10/07/18 15:45 Vapotherm 10.00 95 10/07/18 15:00 125 26 110/64 (79) 87 Vapotherm 95.00 10.00 10/07/18 14:18 91 Vapotherm 10.00 95 10/07/18 13:00 104 10/07/18 13:00 104 16 143/88 (106) 93 Vapotherm 95.00 10.00 10/07/18 12:00 100 19 131/76 (94) 93 Vapotherm 95.00 10.00 10/07/18 11:45 Vapotherm 10.00 95 10/07/18 11:44 Vapotherm 10.00 95 10/07/18 11:00 107 34 120/53 (75) 89 Vapotherm 95.00 10.00 10/07/18 10:31 90 Vapotherm 10.00 95 10/07/18 10:00 90 16 127/81 (96) 92 Vapotherm 95.00 10.00 10/07/18 09:30 96.8 10/07/18 09:00 82 27 111/68 (82) 96 Vapotherm 95.00 10.00 10/07/18 08:30 Vapotherm 10.00 95 10/07/18 08:00 Vapotherm 10.00 95 10/07/18 08:00 Vapotherm 95.00 10.00 10/07/18 07:00 85 10/07/18 07:00 85 22 120/73 (89) 93 Vapotherm 95.00 10.00 10/07/18 06:43 94 Vapotherm 15.00 95 10/07/18 06:00 76 21 117/74 (88) 95 Vapotherm 95.00 15.00 I & O 10/08/18 07:00 Intake Total 1700 ml Output Total 350 ml Balance 1350 ml Height & Weight Height: 5'10.00" Weight: 177lbs. 9.0oz. 80.909953fv; 25.5 BMI Method: General Appearance: No Apparent Distress, Chronically ill Respiratory: No Accessory Muscle Use, No Respiratory Distress, Decreased Breath Sounds, Other (on Vapotherm) Cardiovascular: Regular Rate, Rhythm, No Murmur Extremity: No Calf Tenderness, No Pedal Edema Neurologic/Psychiatric: Alert, Oriented x3 Results Lab Laboratory Tests 10/06/18 19:37 10/07/18 03:00 10/08/18 03:10 Assessment/Plan Assessment/Plan Acute respiratory failure with hypoxia -Oxygen - will add Vapotherm -Pt is on 85% via Vapotherm however cannula is laying on patients chest and his Sp02 is 91%. -Will change to regular NC Pneumonia with sepsis -Continue Zosyn for now -CT of chest shows pneumonia bilateral and small amount of L>R pleural effusions -Will need to follow imaging/pneumonia to complete resolution -IS Debility/deconditioning -PT/OT Metabolic acidosis- improving -IVF change to LR at 75 cc/hr and continue to monitor -repeat LA Hypercalcemia -PTH, TSH -Ionize calcium hyperbilirubinemia, elevated alk phos -Abd US PACO -IVF Coumadin coagulopathy -Has been on coumadin for DVT dx 04/21 -Can probably d/c DVT treatment. Will discuss with Dr. Anne -will add DVT ppx for now since INR is subtherapeutic -repeat labs improved -Monitor Alcohol dependance -Monitor Hx of DVT Transfer pt to 4th floor. Hospice is consulted for education MARCO ANTONIO BATISTA DO Oct 08, 2018 05:57
[2018-10-08] MEDS: CATHETER FLUSH 10 ML SYR IV SCH ×2 (06:12→15:32)
--- NOTE | 2018-10-08 08:22 | Physician Query Clarification ---
PQ-Link Manifestation-Etiology Admission/Discharge Admission Date: Oct 06, 2018 at 11:56 Discharge Date: The medical record reflects the following clinical scenario: History/Risk Factors: Sepsis Pneumonia Clinical Findings: Acute Respiratory failure with hypoxia and acute kidney injury. Treatment:High Flow Nasal Cannula 10L, Vapotherm, IV Fluids. Question: Can you specify if the Acute Respiratory Failure with hypoxia or Acute Kidney Injury are due to/associated with Sepsis? Please document a response below PHYSICIAN RESPONSE Manifestation due to/assoic: Yes In responding to this query, please exercise your independent professional judgment. The purpose of this communication is to more accurately reflect the complexity of your patients condition. The fact that a question is asked does not imply that any particular answer is desired or expected. Thank you for your timely response to this clarification. Requestors name: Ingrid Catalan [facility] Phone # ext [phone] or [phone] THIS PHYSICIAN QUERY FORM IS A PERMANENT PART OF THE MEDICAL RECORD INGRID CATALAN Oct 08, 2018 08:21 TAMMIE SCHULZ MD Oct 09, 2018 14:07
--- NOTE | 2018-10-08 08:42 | Diagnostic Imaging Report ---
INDICATION: Pneumonia and shortness of air. TIME OF EXAM: 3:31 AM Correlation is made with study one day earlier. FINDINGS: Heart size is stable. Infiltrate left upper and lower lung field persists, but does appear to be improved since yesterday. In particular left lung base does show significant improved aeration. There is some persistent patchy infiltrate right midlung. No pneumothorax is seen. IMPRESSION: Bilateral infiltrates demonstrating some overall improvement when compared with chest radiograph one day earlier. Dictated by: Dictated on workstation # [id number]
[2018-10-08] MEDS: LACTATED RINGERS 1,000 ML IV SCH (09:51)
[2018-10-08] MEDS: ENOXAPARIN 40 MG/0.4 ML (LOVENOX) SYR SC SCH (09:55)
[2018-10-08] MEDS: IBUPROFEN 600 MG (MOTRIN) TAB PO SCH ×2 (12:49→18:07)
--- NOTE | 2018-10-08 13:41 | Physical Therapy Daily Note ---
PT Daily Note-Current Subjective Pt reports still having a hard time breathing but willing to work with PT Pain Numeric Pain Scale: 8 Comment: pain in chest only while coughing, ohterwise no pain, nsg aware Appearance Upon arrival into pt's ICU room, pt supine in bed with head elevated, agreeable to walking with Physical Therapy Pt transferred from ICU to acute floor during therapy session. Pt sitting EOB with nsg on acute floor at end of tx session Mental Status Attachments: Oxygen, [place] Catheter, IV 5L O2/NC Transfers Therapy Code Descriptions/Definitions Functional [place] Measure: 0=Not Assessed/NA 4=Minimal Assistance 1=Total Assistance 5=Supervision or Setup 2=Maximal Assistance 6=Modified [place] 3=Moderate Assistance 7=Complete [place] Therapy Quality Codes: 6 Independent with activity with or without an assistive device 5 Patient requires set up or clean up by helper. Patient completes activity by themselves 4 Supervision or touching assist (CGA). [place] provide cues , steadying assist 3 The helper provides less than half the effort to complete the activity 2 The helper provides more than half the effort to complete the activity 1 Dependent. The helper does all the effort to complete an activity 7 Patient refused to complete or attempt activity 9 The patient did not perform the activity before the current illness or injury 88 Not attempted due to Medical conditions or safety concerns Transfers (B, C, W/C) (FIM): 5 Scootin Rollin Supine to/from Sit: 5 Sit to/from Stand: 5 Bed to/from Chair: 5 SBA and encouragement required. Mod Verb inst for safety and hand placement during transitions Weight Bearing Right Lower Extremity: Right Weight Bearing/Tolerated Left Lower Extremity: Left Weight Bearing/Tolerated Gait Training Gait (FIM): 5 Distance (FIM): 3=150 ft Distance: 154 Gait Level of Assist: 5 Gait Persons Needed: 1 Gait Assistive Device: FWW shuffling slow gait, slight kyphotic posture, SOA with exertion, standing rest breaks required Treatments safety, transfer and gait training, Assessment Current Status: Fair Progress encouragement and redirection required, somewhat self limiting improved gait distance PT Short Term Goals Short Term Goals Time Frame: Oct 14, 2018 Transfers (B,C,W/C) (FIM): 6 Gait (FIM): 6 Gait Distance Comment: 150' Gait Level of Assist: 6 Gait Assistive Device: FWW PT Plan Problem List Problem List: Activity Tolerance, Functional Strength, Safety, Gait, Transfer, Bed Mobility Treatment/Plan Treatment Plan: Continue Plan of Care Treatment Plan: Bed Mobility, Education, Functional Activity Adam, Functional Strength, Gait, Safety, Therapeutic Exercise, Transfers Treatment Duration: Oct 14, 2018 Frequency: 6 times per week Estimated Hrs Per Day: .25 hour per day (15-30') Patient and/or Family Agrees t: Yes Safety Risks/Education Patient Education: Gait Training, Transfer Techniques, Safety Issues Teaching Recipient: Patient Teaching Methods: Demonstration, Discussion Response to Teaching: Verbalize Understanding, Return Demonstration, Reinforcement Needed Time/GCodes Time In: 1245 Time Out: 1333 Total Billed Treatment Time: 48 Total Billed Treatment 1 visit GT 20 FA 28 SUSU RICHARDSON VALIDATION ANALYST Oct 08, 2018 13:41
[2018-10-08] MEDS: TAMSULOSIN 0.4 MG (FLOMAX) CAP PO SCH (18:07)
[2018-10-09] VITALS (7 sets, daily range): BP systolic 126–150; BP diastolic 72–90
[2018-10-09] MEDS: LACTATED RINGERS 1,000 ML IV SCH ×2 (00:24→09:03)
[2018-10-09] MEDS: IBUPROFEN 600 MG (MOTRIN) TAB PO SCH ×2 (00:24→06:06)
[2018-10-09] MEDS: CATHETER FLUSH 10 ML SYR IV SCH ×4 (00:24→21:59)
[2018-10-09] MEDS: PIPERACILLIN/TAZO 4.5 GM/NS 100 ML IV SCH ×6 (02:03→20:27)
[2018-10-09] MEDS: RT-ALBUTEROL/IPRATROPIUM 3 ML (DUONEB) VIAL INH SCH ×5 (02:40→21:34)
[2018-10-09] MEDS: ENOXAPARIN 40 MG/0.4 ML (LOVENOX) SYR SC SCH (06:06)
[2018-10-09 07:44] LABS: BASOPHILS % (AUTO) 0 % (0-10); EOSINOPHILS # (AUTO) 0.2 10^3/uL (0.0-0.3); EOSINOPHILS % (AUTO) 2 % (0-10); HEMATOCRIT 35 % (40-54); HEMOGLOBIN 11.7 G/DL (13.3-17.7); LYMPHOCYTES # (AUTO) 1.1 X 10^3 (1.0-4.0); LYMPHOCYTES % (AUTO) 9 % (12-44); MEAN CORPUSCULAR HEMOGLOBIN 29 PG (25-34); MEAN CORPUSCULAR HGB CONC 33 G/DL (32-36); MEAN CORPUSCULAR VOLUME 87 FL (80-99); MEAN PLATELET VOLUME 9.2 FL (7.4-10.4); MONOCYTES # (AUTO) 0.7 X 10^3 (0.0-1.0); MONOCYTES % (AUTO) 6 % (0-12); NEUTROPHILS # (AUTO) 10.5 X 10^3 (1.8-7.8); NEUTROPHILS % (AUTO) 83 % (42-75); PLATELET COUNT 304 10^3/uL (130-400); RED BLOOD COUNT 4.06 10^6/uL (4.35-5.85); RED CELL DISTRIBUTION WIDTH 16.3 % (10.0-14.5); WHITE BLOOD COUNT 12.5 10^3/uL (4.3-11.0)
[2018-10-09 07:55] LABS: INR 1.4 (0.8-1.4); PROTHROMBIN TIME PATIENT 17.3 SEC (12.2-14.7)
[2018-10-09 07:59] LABS: CALCIUM 9.3 MG/DL (8.5-10.1); CREATININE SERUM 1.38 MG/DL (0.60-1.30); PHOSPHORUS 3.4 MG/DL (2.3-4.7); POTASSIUM 4.2 MMOL/L (3.6-5.0)
--- NOTE | 2018-10-09 08:07 | Diagnostic Imaging Report ---
INDICATION: Pneumonia, shortness of air. TECHNIQUE: Single view chest 12:34 a.m. CORRELATION STUDY: 10/08/2018. FINDINGS: Heart size enlarged, mediastinum prominent. Vasculature appears increased from prior study. Scattered pulmonary parenchymal densities left greater than right also appear increased. IMPRESSION: 1. Increasing vascular congestion. Increasing areas of infiltrate and/or edema throughout both lung amaya left greater than right. Dictated by: Dictated on workstation # [id number]
--- NOTE | 2018-10-09 08:25 | Pulmonary Progress Note ---
LANDY MCKENZIE MED STUDENT 10/09/18 0825: Subjective Date Seen by a Provider: Oct 09, 2018 Time Seen by a Provider: 08:23 Subjective/Events-last exam Patient reports no significant change in how he is feeling but a general dissatisfaction with his care because "no one will explain to him what is going on." However when asked he had no questions for me. He reports no SOB or cough. He would like to work with PT today if possible. Review of Systems Pulmonary: No Dyspnea, No Cough; Other (left side pain with the occassional cough) Sepsis Event Evaluation Height, Weight, BMI Height: 5'10.00" Weight: 179lbs. 9.0oz. 81.762856ym; 25.5 BMI Method: Focused Exam Lactate Level 10/07/18 05:25: Lactic Acid Level 0.92 Respiratory: Chest Non Tender, No Accessory Muscle Use, No Respiratory Distress Cardiovascular: Regular Rate, Rhythm, No Edema, No Gallop, No JVD, No Murmur Skin: normal color, warm/dry Exam Exam Vital Signs Date Time Temp Pulse Resp B/P (MAP) Pulse Ox O2 Delivery O2 Flow Rate FiO2 10/09/18 06:45 94 High Flow N/C 4.00 10/09/18 03:28 99.1 82 18 147/85 (105) 95 Nasal Cannula 4.00 10/09/18 02:40 94 High Flow N/C 4.00 10/09/18 00:13 99.0 84 18 130/72 (91) 94 Nasal Cannula 4.00 10/08/18 21:00 Nasal Cannula 4.00 10/08/18 20:00 98.2 85 20 104/60 (75) 92 Nasal Cannula 4.00 10/08/18 18:58 93 High Flow N/C 4.00 10/08/18 16:00 99.0 87 18 120/72 (88) 93 Nasal Cannula 4.00 10/08/18 15:11 91 High Flow N/C 4.00 10/08/18 13:35 98.9 103 22 136/85 (102) 90 Nasal Cannula 4.00 10/08/18 13:07 105 10/08/18 13:00 93 14 149/92 (111) 94 Vapotherm 85.00 10.00 10/08/18 12:00 106 32 136/80 (98) 93 Vapotherm 85.00 10.00 10/08/18 11:00 114 19 156/97 (116) 92 Vapotherm 85.00 10.00 10/08/18 10:04 90 High Flow N/C 5.00 10/08/18 10:00 108 33 156/97 (116) 90 Vapotherm 85.00 10.00 10/08/18 09:00 Vapotherm 10.00 90 10/08/18 09:00 94 18 143/83 (103) 92 Vapotherm 85.00 10.00 I & O 10/09/18 07:00 Intake Total 600 ml Output Total 1650 ml Balance -1050 ml Height & Weight Height: 5'10.00" Weight: 179lbs. 9.0oz. 81.001746ah; 25.5 BMI Method: General Appearance: No Apparent Distress, Chronically ill Respiratory: No Accessory Muscle Use, No Respiratory Distress, Decreased Breath Sounds, Other (on Vapotherm) Cardiovascular: Regular Rate, Rhythm, No Murmur Gastrointestinal: non tender, soft Extremity: No Calf Tenderness, No Pedal Edema Neurologic/Psychiatric: Alert, Oriented x3 Skin: Normal Color, Warm/Dry Results Lab Laboratory Tests 10/08/18 03:10 10/09/18 07:37 Assessment/Plan Assessment/Plan Acute respiratory failure with hypoxia -Oxygen - currently sat 95% on 4 L via nasal canula Pneumonia with sepsis -Continue Zosyn for now -CT of chest shows pneumonia bilateral and small amount of L>R pleural effusions -Will need to follow imaging/pneumonia to complete resolution -IS Debility/deconditioning -PT/OT Metabolic acidosis- improving -IVF change to LR at 75 cc/hr and continue to monitor -repeat LA Hypercalcemia -PTH is elevated, TSH is normal -Ionize calcium is elevated -parathyroid workup needed hyperbilirubinemia, elevated alk phos -Abd US PACO -IVF Coumadin coagulopathy -Has been on coumadin for DVT dx 04/21 -d/c DVT treatment. Discussed with Dr. Anne -will add DVT ppx for now since INR is subtherapeutic -repeat labs improved -Monitor Alcohol dependance -Monitor Hx of DVT Hospice is consulted for education. MARCO ANTONIO BATISTA DO 10/09/18 0944: Subjective Time Seen by a Provider: 09:39 Assessment/Plan Assessment/Plan Acute respiratory failure with hypoxia -Oxygen - currently sat 95% on 4 L via nasal canula Pneumonia with sepsis -Continue Zosyn for now -CT of chest shows pneumonia bilateral and small amount of L>R pleural effusions -Will need to follow imaging/pneumonia to complete resolution -IS Debility/deconditioning -PT/OT Metabolic acidosis- improving -IVF currently at 75cc/hr -Check BNP Hypercalcemia - Probably hyperparathyroid -Can be out patient workup -PTH is elevated, TSH is normal -Ionize calcium is elevated hyperbilirubinemia, elevated alk phos -Abd US - reviewed and shows no acute change and no mass PACO - improving -IVF Coumadin coagulopathy -Has been on coumadin for DVT dx 04/21 -d/c DVT treatment. Discussed with Dr. Anne -will add DVT ppx for now since INR is subtherapeutic -repeat labs improved -Monitor Alcohol dependance -Monitor Hx of DVT Hospice is consulted for education. Pt will probably need home oxygen upon discharge. LANDY MCKENZIE MED STUDENT Oct 09, 2018 08:25 MARCO ANTONIO BATISTA DO Oct 09, 2018 09:44
[2018-10-09] MEDS: ACETAMINOPHEN 325 MG TABLET PO PRN ×2 (08:26→23:11)
[2018-10-09] MEDS: ALPRAZolam 0.5 MG (XANAX) TAB PO PRN ×2 (09:00→23:09)
[2018-10-09] MEDS ORDERED: FUROSEMIDE 40 MG/4 ML INJ (LASIX) IVP NR (10:00)
[2018-10-09] MEDS ORDERED: IBUPROFEN 600 MG (MOTRIN) TAB PO PRN (10:15)
--- NOTE | 2018-10-09 10:47 | Physical Therapy Daily Note ---
PT Daily Note-Current Subjective Pt awake in bed watching tv when PT arrived. Pt asked if he could get up and walk. Pain Numeric Pain Scale: 0-No Pain Location: No Pain Reported Mental Status Patient Orientation: Normal For Age Attachments: Oxygen, [place] Catheter, IV Transfers Therapy Code Descriptions/Definitions Functional [place] Measure: 0=Not Assessed/NA 4=Minimal Assistance 1=Total Assistance 5=Supervision or Setup 2=Maximal Assistance 6=Modified [place] 3=Moderate Assistance 7=Complete [place] Therapy Quality Codes: 6 Independent with activity with or without an assistive device 5 Patient requires set up or clean up by helper. Patient completes activity by themselves 4 Supervision or touching assist (CGA). [place] provide cues , steadying assist 3 The helper provides less than half the effort to complete the activity 2 The helper provides more than half the effort to complete the activity 1 Dependent. The helper does all the effort to complete an activity 7 Patient refused to complete or attempt activity 9 The patient did not perform the activity before the current illness or injury 88 Not attempted due to Medical conditions or safety concerns Transfers (B, C, W/C) (FIM): 5 Scootin Rollin Supine to/from Sit: 5 Sit to/from Stand: 5 Weight Bearing Right Lower Extremity: Right Weight Bearing/Tolerated Left Lower Extremity: Left Weight Bearing/Tolerated Gait Training Gait (FIM): 5 Distance (FIM): 3=150 ft Distance: 200' Gait Level of Assist: 5 Gait Persons Needed: 1 Gait Assistive Device: FWW Assessment Pt able to ambulate for 200' with a FWW requiring SBA. Patient showed SOB when returning to his room but recovered by the time he was back in bed. Pt will continue therapy to improve endurance and ambulation for daily demands. PT Short Term Goals Short Term Goals Time Frame: Oct 14, 2018 Transfers (B,C,W/C) (FIM): 6 Gait (FIM): 6 Gait Distance Comment: 150' Gait Level of Assist: 6 Gait Assistive Device: FWW PT Plan Problem List Problem List: Activity Tolerance, Functional Strength, Safety, Balance, Gait, Transfer Treatment/Plan Treatment Plan: Continue Plan of Care Treatment Plan: Bed Mobility, Education, Functional Activity [place], Functional Strength, Gait, Safety, Therapeutic Exercise, Transfers Treatment Duration: Oct 14, 2018 Frequency: 6 times per week Estimated Hrs Per Day: .25 hour per day (15-30') Patient and/or Family Agrees t: Yes Time/GCodes Time In: 950 Time Out: 1008 Total Billed Treatment Time: 18 Total Billed Treatment 1 Visit GT - 18' CHARITY ROSA PT Oct 09, 2018 10:47
--- NOTE | 2018-10-09 12:00 | Progress Note-Hospitalist ---
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 He states that he was seen by his PCP 1 week ago and told he had bronchitis and started on a z pack and prednisone. Despite this he continued to worsen. He reports vague symptoms though of his worsening. He states he "just didn't feel right" and "had a gut feeling" something was wrong. He denies fevers and when asked states he has been coughing up blood clots. He denies any other bleeding. He was found to have an INR of 11.9 though there. He was also found to meet sepsis criteria with a leukocytosis and tachycardia. He was transferred here for admission due to staffing at outside facility. Subjective/Events-last exam Pt reports frustration with having to involve so many people for his care (RT/PT / RN/MD/sales service assistant) and would like one person to do everything for him. Discussed discharge planning but he states that SNF placement is "off the table. " Focused Exam Lactate Level 10/07/18 05:25: Lactic Acid Level 0.92 Objective Exam Vital Signs Vital Signs Date Time Temp Pulse Resp B/P (MAP) Pulse Ox O2 Delivery O2 Flow Rate FiO2 10/09/18 08:00 98.0 89 18 150/90 (110) 93 Nasal Cannula 4.00 10/08/18 09:00 90 Capillary Refill : General Appearance: No Apparent Distress, Chronically ill Respiratory: No Respiratory Distress, Decreased Breath Sounds Cardiovascular: Regular Rate, Rhythm, No Murmur Gastrointestinal: Normal Bowel Sounds, Soft Neurologic/Psychiatric: Alert, Other (oriented to person and place at this time and some details but forgetful of other) Results/Procedures Lab Laboratory Tests 10/09/18 07:37 Patient resulted labs reviewed. Assessment/Plan Assessment and Plan Assess & Plan/Chief Complaint Acute respiratory failure Diagnosis/Problems Diagnosis/Problems (1) Sepsis Status: Acute Assessment & Plan: Sepsis resolved Continue Zosyn, await cultures from [place] CT reveals multilobar pneumonia Qualifiers: Sepsis type: sepsis due to unspecified organism Qualified Codes: A41.9 - Sepsis, unspecified organism (2) CAP (community acquired pneumonia) Assessment & Plan: Antibiotics as above Pulm consulted, appreciate recs CT with multilobar pneumonia Sputum culture ordered Qualifiers: Laterality: left Lung location: lower lobe of lung Qualified Codes: J18.1 - Lobar pneumonia, unspecified organism (3) Acute respiratory failure Assessment & Plan: NC at 4lpm DNR Pulm consulted MAT protocol Palliative Care consult placed Likely has underlying COPD and chronic hypoxia Titrate to keep sats greater than 90 Qualifiers: Respiratory failure complication: hypoxia Qualified Codes: J96.01 - Acute respiratory failure with hypoxia (4) Supratherapeutic INR Assessment & Plan: Resolved s/p 6 month treatment of DVT Will stop anticoagulation (5) DVT (deep venous thrombosis) Status: Acute Assessment & Plan: as above Qualifiers: DVT location: lower extremity Affected thrombotic vein of extremity: unspecified vein of extremity Chronicity: unspecified Laterality: left Qualified Codes: I82.402 - Acute embolism and thrombosis of unspecified deep veins of left lower extremity (6) Alcohol dependence Assessment & Plan: Reports regular use CIWA protocol Qualifiers: Substance use status: unspecified alcohol-induced disorder Qualified Codes : F10.29 - Alcohol dependence with unspecified alcohol-induced disorder (7) Counseling regarding end of life decision making Assessment & Plan: Given high oxygen demands discussed with patient about potential escalation of care States he would like to be a DNR and unsure about BiPAP use Advance Directive consult placed Palliative Care Consult placed Clinical Quality Measures DVT/VTE Risk/Contraindication: Risk Factor Score Per Nursin RFS Level Per Nursing on Admit: 4+=Very High TAMMIE SCHULZ MD Oct 09, 2018 12:00
[2018-10-09] MEDS: TAMSULOSIN 0.4 MG (FLOMAX) CAP PO SCH (20:24)
[2018-10-10] MEDS: PIPERACILLIN/TAZO 4.5 GM/NS 100 ML IV SCH ×4 (02:51→09:18)
[2018-10-10] MEDS: CATHETER FLUSH 10 ML SYR IV SCH (02:51)
[2018-10-10] MEDS: RT-ALBUTEROL/IPRATROPIUM 3 ML (DUONEB) VIAL INH SCH ×2 (03:07→09:12)
[2018-10-10 04:15] VITALS: BP 14/85
[2018-10-10 05:46] LABS: BASOPHILS % (AUTO) 0 % (0-10); EOSINOPHILS # (AUTO) 0.2 10^3/uL (0.0-0.3); EOSINOPHILS % (AUTO) 2 % (0-10); HEMATOCRIT 34 % (40-54); HEMOGLOBIN 11.1 G/DL (13.3-17.7); LYMPHOCYTES # (AUTO) 1.1 X 10^3 (1.0-4.0); LYMPHOCYTES % (AUTO) 11 % (12-44); MEAN CORPUSCULAR HEMOGLOBIN 29 PG (25-34); MEAN CORPUSCULAR HGB CONC 33 G/DL (32-36); MEAN CORPUSCULAR VOLUME 88 FL (80-99); MEAN PLATELET VOLUME 9.2 FL (7.4-10.4); MONOCYTES # (AUTO) 0.8 X 10^3 (0.0-1.0); MONOCYTES % (AUTO) 8 % (0-12); NEUTROPHILS # (AUTO) 8.2 X 10^3 (1.8-7.8); NEUTROPHILS % (AUTO) 79 % (42-75); PLATELET COUNT 281 10^3/uL (130-400); RED CELL DISTRIBUTION WIDTH 15.6 % (10.0-14.5); WHITE BLOOD COUNT 10.3 10^3/uL (4.3-11.0)
[2018-10-10 06:05] LABS: CALCIUM 9.2 MG/DL (8.5-10.1); CREATININE SERUM 1.52 MG/DL (0.60-1.30); POTASSIUM 4.1 MMOL/L (3.6-5.0)
[2018-10-10] MEDS: ENOXAPARIN 40 MG/0.4 ML (LOVENOX) SYR SC SCH (06:10)
--- NOTE | 2018-10-10 07:08 | Diagnostic Imaging Report ---
INDICATION: Shortness of breath, pneumonia. COMPARISON: 10/09/2018. FINDINGS: Single view of the chest demonstrates cardiac enlargement with persistent but decreasing bilateral pulmonary infiltrates. There is persistent but decreased effusion in the left base. There is no pneumothorax. IMPRESSION: Improved aeration both lungs. Dictated by: Dictated on workstation # [id number]
[2018-10-10 08:00] VITALS: BP 134/77
--- NOTE | 2018-10-10 08:38 | Pulmonary Progress Note ---
LANDY MCKENZIE MED STUDENT 10/10/18 0838: Subjective Date Seen by a Provider: Oct 10, 2018 Time Seen by a Provider: 08:32 Subjective/Events-last exam Patient reports that he is feeling better today, and his breathing is easier. He enjoyed walking yesterday twice with nurses and expresses concern over needing to go home with oxygen tanks. Sepsis Event Evaluation Height, Weight, BMI Height: 5'10.00" Weight: 172lbs. 14.0oz. 78.470741qp; 25.5 BMI Method: Focused Exam Respiratory: Chest Non Tender, No Accessory Muscle Use, No Respiratory Distress Cardiovascular: Regular Rate, Rhythm, No Murmur Skin: normal color, warm/dry Exam Exam Vital Signs Date Time Temp Pulse Resp B/P (MAP) Pulse Ox O2 Delivery O2 Flow Rate FiO2 10/10/18 04:15 98.0 85 18 14/85 (62) 95 Nasal Cannula 4.00 10/10/18 03:09 95 High Flow N/C 4.00 10/09/18 23:10 99.2 95 22 134/77 (96) 92 Nasal Cannula 4.00 10/09/18 21:36 95 High Flow N/C 4.00 10/09/18 20:40 98.4 91 22 134/85 (101) 94 Nasal Cannula 4.00 10/09/18 20:30 Nasal Cannula 10/09/18 15:40 97.0 108 22 126/73 (90) 92 Nasal Cannula 4.00 10/09/18 14:17 96 High Flow N/C 4.00 10/09/18 12:00 98.0 82 28 137/83 (101) 93 Nasal Cannula 4.00 10/09/18 09:00 Nasal Cannula 4.00 I & O 10/10/18 07:00 Intake Total 2690 ml Output Total 3325 ml Balance -635 ml Height & Weight Height: 5'10.00" Weight: 172lbs. 14.0oz. 78.148378pm; 25.5 BMI Method: General Appearance: No Apparent Distress, Chronically ill Respiratory: Chest Non Tender, No Accessory Muscle Use, No Respiratory Distress , Decreased Breath Sounds, Other (sat 95 on 4L oxygen via nasal canula) Cardiovascular: Regular Rate, Rhythm, No Murmur Gastrointestinal: non tender, soft Extremity: No Calf Tenderness, No Pedal Edema Neurologic/Psychiatric: Alert, Other (oriented to person and place at this time and some details but forgetful of other) Skin: Normal Color, Warm/Dry Results Lab Laboratory Tests 10/09/18 07:37 10/10/18 05:35 Assessment/Plan Assessment/Plan Acute respiratory failure with hypoxia -Oxygen - currently sat 95% on 4 L via nasal canula -Home O2 test prior to discharge Pneumonia with sepsis -switch zosyn to augmentin at discharge -CT of chest shows pneumonia bilateral and small amount of L>R pleural effusions -Will need to follow imaging/pneumonia as outpatient to complete resolution -IS Debility/deconditioning -PT/OT Hypercalcemia - Probably hyperparathyroid -Can be out patient workup -PTH is elevated, TSH is normal -Ionize calcium is elevated hyperbilirubinemia, elevated alk phos -Abd US - reviewed and shows no acute change and no mass Coumadin coagulopathy -Has been on coumadin for DVT dx 04/21 -d/c DVT treatment. Discussed with Dr. Anne -will add DVT ppx for now since INR is subtherapeutic -repeat labs improved -Monitor Alcohol dependance -Monitor Hx of DVT Hospice is consulted for education. Pt will probably need home oxygen upon discharge. MARCO ANTONIO BATISTA DO 10/10/18 0846: Subjective Time Seen by a Provider: 08:44 Subjective/Events-last exam Pt appears to be doing better. Exam Exam General Appearance: No Apparent Distress, Chronically ill Respiratory: Chest Non Tender, No Accessory Muscle Use, No Respiratory Distress , Decreased Breath Sounds Cardiovascular: Regular Rate, Rhythm, No Murmur Capillary Refill: Less Than 3 Seconds Gastrointestinal: non tender, soft Extremity: No Calf Tenderness, No Pedal Edema Neurologic/Psychiatric: Alert Skin: Normal Color, Warm/Dry Assessment/Plan Assessment/Plan hyperbilirubinemia, elevated alk phos -Abd US - reviewed and shows no acute change and no mass -repeat labs improved -Monitor Alcohol dependance -Monitor Hx of DVT PT is ok for discharge from pulmonary standpoint. I am going to sign off please call with any questions. LANDY MCKENZIE MED STUDENT Oct 10, 2018 08:38 MARCO ANTONIO BATISTA DO Oct 10, 2018 08:46
[2018-10-10] MEDS: ALPRAZolam 0.5 MG (XANAX) TAB PO PRN (09:16)
[2018-10-10] MEDS: ACETAMINOPHEN 325 MG TABLET PO PRN (09:16)
--- NOTE | 2018-10-10 12:06 | Physical Therapy Daily Note ---
PT Daily Note-Current Subjective Patient agrees to PT. Pain Numeric Pain Scale: 0-No Pain Location: No Pain Reported Mental Status Patient Orientation: Normal For Age Attachments: Oxygen, [place] Catheter, IV Transfers Therapy Code Descriptions/Definitions Functional [place] Measure: 0=Not Assessed/NA 4=Minimal Assistance 1=Total Assistance 5=Supervision or Setup 2=Maximal Assistance 6=Modified [place] 3=Moderate Assistance 7=Complete [place] Therapy Quality Codes: 6 Independent with activity with or without an assistive device 5 Patient requires set up or clean up by helper. Patient completes activity by themselves 4 Supervision or touching assist (CGA). [place] provide cues , steadying assist 3 The helper provides less than half the effort to complete the activity 2 The helper provides more than half the effort to complete the activity 1 Dependent. The helper does all the effort to complete an activity 7 Patient refused to complete or attempt activity 9 The patient did not perform the activity before the current illness or injury 88 Not attempted due to Medical conditions or safety concerns Transfers (B, C, W/C) (FIM): 6 Scootin Rollin Supine to/from Sit: 6 Sit to/from Stand: 6 Bed to/from Chair: 6 Weight Bearing Right Lower Extremity: Right Weight Bearing/Tolerated Left Lower Extremity: Left Weight Bearing/Tolerated Gait Training Gait (FIM): 6 Distance (FIM): 3=150 ft Distance: 500' Gait Level of Assist: 6 Gait Assistive Device: FWW slow, steady/3 standing recovery periods due to fatigue with quick recovery Assessment Patient is progressing with treatment and is having difficulty with making a decision to dismiss to NH or home. Patient demonstrates good functional mobility with gross motor skills, however, continues to require O2. PT Short Term Goals Short Term Goals Time Frame: Oct 14, 2018 Transfers (B,C,W/C) (FIM): 6 Gait (FIM): 6 Gait Distance Comment: 150' Gait Level of Assist: 6 Gait Assistive Device: FWW PT Plan Treatment/Plan Treatment Plan: Continue Plan of Care Treatment Plan: Bed Mobility, Education, Functional Activity Adam, Functional Strength, Gait, Safety, Therapeutic Exercise, Transfers Treatment Duration: Oct 14, 2018 Frequency: 6 times per week Estimated Hrs Per Day: .25 hour per day (15-30') Patient and/or Family Agrees t: Yes Time/GCodes Time In: 1100 Time Out: 1123 Total Billed Treatment Time: 23 Total Billed Treatment 1 visit FA x 2 23 min CHARITY ROSA PT Oct 10, 2018 12:06
--- NOTE | 2018-10-10 12:22 | Discharge Inst-Skilled Nursing ---
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 He states that he was seen by his PCP 1 week ago and told he had bronchitis and started on a z pack and prednisone. Despite this he continued to worsen. He reports vague symptoms though of his worsening. He states he "just didn't feel right" and "had a gut feeling" something was wrong. He denies fevers and when asked states he has been coughing up blood clots. He denies any other bleeding. He was found to have an INR of 11.9 though there. He was also found to meet sepsis criteria with a leukocytosis and tachycardia. He was transferred here for admission due to staffing at outside facility. Consult/Follow Up/Orders Follow Up Appt.: With administrative medical director in the next week. Skilled NF Admit to: [facility] Certification ([facility]) I certify that SNF services are required to be given on an inpatient basis because of the above named patient's need for assisted care on a continuing basis for the conditions(s) for which he/she was receiving inpatient hospital services prior to his/her transfer to the SNF. Jail Facility Order: Nursing Services, Planning Technician-Evaluate & Treat, Physical Therapy-Evaluate & Treat Discharge Diet: No Restrictions Daily Activity as Tolerated: Yes New & Resume Previous Orders Tammie Anne Oct 10, 2018 12:21 TAMMIE ANNE MD Oct 10, 2018 12:22
[2018-10-10] MEDS ORDERED: ALPR0.5T7 PO (12:25)
[2018-10-10] MEDS ORDERED: AMOX-358 PO (12:25)
[2018-10-10] MEDS ORDERED: TAMS0.4C98 PO (12:25)
--- NOTE | 2018-10-10 12:50 | Discharge Summary-Hospitalist ---
Diagnosis/Chief Complaint Date of Admission Oct 06, 2018 at 11:56 Date of Discharge Discharge Date: Oct 10, 2018 Admission Diagnosis Sepsis, supratherapeutic INR Discharge Diagnosis (1) Sepsis Status: Acute Assessment & Plan: Sepsis resolved Continue Zosyn, await cultures from [place] CT reveals multilobar pneumonia (2) CAP (community acquired pneumonia) Assessment & Plan: Antibiotics as above Pulm consulted, appreciate recs CT with multilobar pneumonia Sputum culture ordered (3) Acute respiratory failure Assessment & Plan: NC at 4lpm DNR Pulm consulted MAT protocol Palliative Care consult placed Likely has underlying COPD and chronic hypoxia Titrate to keep sats greater than 90 (4) Supratherapeutic INR Assessment & Plan: Resolved s/p 6 month treatment of DVT Will stop anticoagulation (5) DVT (deep venous thrombosis) Status: Acute Assessment & Plan: as above (6) Alcohol dependence Assessment & Plan: Reports regular use CIWA protocol (7) Counseling regarding end of life decision making Assessment & Plan: Given high oxygen demands discussed with patient about potential escalation of care States he would like to be a DNR and unsure about BiPAP use Advance Directive consult placed Palliative Care Consult placed Discharge Summary Discharge Physical Exam Allergies: Coded Allergies: morphine (Verified Adverse Reaction, Unknown, 10/06/18) confusion Vitals & I&Os Vital Signs Date Time Temp Pulse Resp B/P (MAP) Pulse Ox O2 Delivery O2 Flow Rate FiO2 10/10/18 09:12 93 High Flow N/C 4.00 10/10/18 08:00 99.2 95 22 134/77 (96) 10/08/18 09:00 90 Hospital Course Labs (last 24 hrs) Laboratory Tests 10/10/18 05:35: White Blood Count 10.3, Red Blood Count 3.90L, Hemoglobin 11.1L, Hematocrit 34L , Mean Corpuscular Volume 88, Mean Corpuscular Hemoglobin 29, Mean Corpuscular Hemoglobin Concent 33, Red Cell Distribution Width 15.6H, Platelet Count 281, Mean Platelet Volume 9.2, Neutrophils (%) (Auto) 79H, Lymphocytes (%) (Auto) 11L , Monocytes (%) (Auto) 8, Eosinophils (%) (Auto) 2, Basophils (%) (Auto) 0, Neutrophils # (Auto) 8.2H, Lymphocytes # (Auto) 1.1, Monocytes # (Auto) 0.8, Eosinophils # (Auto) 0.2, Basophils # (Auto) 0.0, Sodium Level 138, Potassium Level 4.1, Chloride Level 108H, Carbon Dioxide Level 19L, Anion Gap 11, Blood Urea Nitrogen 29H, Creatinine 1.52H, Estimat Glomerular Filtration Rate 44, BUN/ Creatinine Ratio 19, Glucose Level 100, Calcium Level 9.2 Patient resulted labs reviewed. Pending Labs Laboratory Tests 10/10/18 05:35: White Blood Count 10.3, Red Blood Count 3.90, Hemoglobin 11.1, Hematocrit 34, Mean Corpuscular Volume 88, Mean Corpuscular Hemoglobin 29, Mean Corpuscular Hemoglobin Concent 33, Red Cell Distribution Width 15.6, Platelet Count 281, Mean Platelet Volume 9.2, Neutrophils (%) (Auto) 79, Lymphocytes (%) (Auto) 11, Monocytes (%) (Auto) 8, Eosinophils (%) (Auto) 2, Basophils (%) (Auto) 0, Neutrophils # (Auto) 8.2, Lymphocytes # (Auto) 1.1, Monocytes # (Auto) 0.8, Eosinophils # (Auto) 0.2, Basophils # (Auto) 0.0, Sodium Level 138, Potassium Level 4.1, Chloride Level 108, Carbon Dioxide Level 19, Anion Gap 11, Blood Urea Nitrogen 29, Creatinine 1.52, Estimat Glomerular Filtration Rate 44, BUN/ Creatinine Ratio 19, Glucose Level 100, Calcium Level 9.2 Discharge Home Medications: Active Scripts Active Augmentin 875-125 Tablet (Amoxicillin/Potassium Clav) 1 Each Tablet 1 Each PO BID Flomax (Tamsulosin HCl) 0.4 Mg Cap 0.4 Mg PO DAILY@1800 Alprazolam 0.5 Mg Tablet 0.5 Mg PO TID PRN Reported Warfarin Sodium 5 Mg Tablet 2.5 Mg PO MOWEFR TAKES 1/2 (5MG) TABLET Medrol (Methylprednisolone) 4 Mg Tab.ds.pk PO UD 6 Days 6 DAY SUPPLY FILLED 10-01-18 PER DOSE PACK INSTRUCTIONS Proair Hfa (Albuterol Sulfate) 1 Puff Puff 2 Puff INH Q4H PRN Warfarin Sodium 5 Mg Tablet 5 Mg PO SUTUTHSA Pantoprazole Sodium 40 Mg Tablet.dr 40 Mg PO DAILY Celecoxib 200 Mg Capsule 200 Mg PO BID Instructions to patient/family Please see electronic discharge instructions given to patient. Clinical Quality Measures DVT/VTE Risk/Contraindication: Risk Factor Score Per Nursin RFS Level Per Nursing on Admit: 4+=Very High Problem Qualifiers (1) Sepsis: Sepsis type: sepsis due to unspecified organism Qualified Codes: A41.9 - Sepsis, unspecified organism (2) CAP (community acquired pneumonia): Laterality: left Lung location: lower lobe of lung Qualified Codes: J18.1 - Lobar pneumonia, unspecified organism (3) Acute respiratory failure: Respiratory failure complication: hypoxia Qualified Codes: J96.01 - Acute respiratory failure with hypoxia (4) DVT (deep venous thrombosis): DVT location: lower extremity Affected thrombotic vein of extremity: unspecified vein of extremity Chronicity: unspecified Laterality: left Qualified Codes: I82.402 - Acute embolism and thrombosis of unspecified deep veins of left lower extremity (5) Alcohol dependence: Substance use status: unspecified alcohol-induced disorder Qualified Codes: F10.29 - Alcohol dependence with unspecified alcohol-induced disorder TAMMIE SCHULZ MD Oct 10, 2018 12:50
== END 2018-10-10 15:15 | DRG 871 ==
LOC: ICU 11:56 → 4TH 10-08 13:30
PROVIDERS: ADMIT Family Medicine; ATTEND Family Medicine
DX: A41.9 Sepsis, unspecified organism (principal); R65.20 Severe sepsis without septic shock; J18.1 Lobar pneumonia, unspecified organism; J96.01 Acute respiratory failure with hypoxia; J44.0 Chronic obstructive pulmonary disease with (acute) lower respiratory infection; E87.2 Acidosis; N17.9 Acute kidney failure, unspecified; Z66 Do not resuscitate; E80.6 Other disorders of bilirubin metabolism; R04.2 Hemoptysis; E83.52 Hypercalcemia; R74.8 Abnormal levels of other serum enzymes; R79.1 Abnormal coagulation profile; F10.20 Alcohol dependence, uncomplicated; F41.9 Anxiety disorder, unspecified; E78.00 Pure hypercholesterolemia, unspecified; M41.9 Scoliosis, unspecified; M19.91 Primary osteoarthritis, unspecified site; N40.0 Benign prostatic hyperplasia without lower urinary tract symptoms; Z79.01 Long term (current) use of anticoagulants; Z87.891 Personal history of nicotine dependence; Z86.718 Personal history of other venous thrombosis and embolism
CPT/HCPCS: 36415; 71045; 71250; 76700; 80048; 80053; 81000; 82330; 83605; 83735; 83880; 83970; 84100; 84443; 85007; 85025; 85027; 85610; 94640; 94760

== ENCOUNTER → 2018-11-25 | Outpatient (CLI) | payer MEDICARE, OTHER ==
[~2018-11-25] MED LIST: ALPR0.5T7 PO; AMOX-358 PO; CELE-63 PO; METH4TAB PO; PANT40TA3 PO; RT-ALBUINH INH; TAMS0.4C2 PO; TAMS0.4C98 PO; WARF-48 PO
--- NOTE | 2018-11-25 15:17 | Diagnostic Imaging Report ---
INDICATION: Lung mass. TECHNIQUE: Serum blood glucose level at the time of injection is 102 mg/dL. The patient was administered 12.9 mCi F-18 FDG intravenously in the left antecubital location and PET imaging was performed from the top of the skull to the mid thighs. Noncontrast CT was also performed for attenuation correction and anatomic correlation. COMPARISON: No prior PET studies are available for comparison. Comparison is made with conventional CT chest study from 10/06/2018. FINDINGS: There is symmetric activity throughout the brain. The soft tissues of the neck are unremarkable. Imaging through the chest demonstrates mediastinum and sheryl to be unremarkable apart from very mild uptake involving a right hilar lymph node with SUV max of approximately 3. Area of consolidation in the posterior left upper lobe does not appear to be metabolic and most likely represents an area of pneumonia. Low level activity involving areas of airspace density in the right upper lobe and right lower lobe are also seen. Minimal uptake left hilar lymph node is seen with SUV max of approximately 3. Hilar nodes may be reactive. The abdomen and pelvis show physiologic activity within the GI and tracts. No abnormal hypermetabolism is identified. IMPRESSION: Low level activity identified in airspace densities in the right upper and right lower lobe. Area of consolidation in left upper lobe does not appear to be metabolic. Findings are suggestive of residual pneumonia. There is low level activity within bilateral hilar lymph nodes which may be reactive. Continued CT chest followup to confirm clearing is recommended. No other regions of hypermetabolism are identified. Dictated by: Dictated on workstation # [id number]
== END ==
LOC: RAD 11:18
PROVIDERS: ATTEND Internal Medicine Critical Care Medicine
DX: J18.1 Lobar pneumonia, unspecified organism (principal); J98.4 Other disorders of lung; R91.8 Other nonspecific abnormal finding of lung field

== ENCOUNTER 2018-11-26 07:21 | Day surgery (SDC) | payer MEDICARE ==
[~2018-11-26] VITALS: Ht 177.8 cm; Wt 78.0 kg
[2018-11-26] MEDS ORDERED: LIDOCAINE PF 1% 2 ML VIAL (OR ONLY) IJ ONE (07:22)
[2018-11-26] MEDS ORDERED: LACTATED RINGERS 1,000 ML IV ONE (07:39)
[2018-11-26] MEDS ORDERED: LACTATED RINGERS 1,000 ML IV STA (08:03)
[2018-11-26 08:11] VITALS: BP 128/83
[2018-11-26] MEDS ORDERED: NALOXONE 0.4 MG/ML 1 ML (NARCAN) VIAL IVP PRN (08:15)
[2018-11-26] MEDS ORDERED: FLUMAZENIL (ROMAZICON) 0.1 MG/ML 5 ML VIAL INJ PRN (08:15)
[2018-11-26] MEDS ORDERED: proPOfol 200 MG/20 ML (DIPRIVAN) VIAL IV ONE (08:16)
[2018-11-26] MEDS ORDERED: LIDOCAINE PF 2% 5 ML (XYLOCAINE) VIAL ONE (08:16)
[2018-11-26] MEDS ORDERED: SUCCINYLCHOLINE INJ 100 MG/5 ML SYR ONE (08:17)
[2018-11-26] MEDS ORDERED: fentaNYL INJECTION 100 MCG/2 ML AMP ONE (08:17)
[2018-11-26 09:20] LABS: INR 1.1 (0.8-1.4); PROTHROMBIN TIME PATIENT 14.5 SEC (12.2-14.7)
--- OUTSIDE RECORDS SUMMARY | 2018-11-26 09:30 | XMS REPORT ---
Author Author BENITO BEATTY Organization [facility] [place] Address [address] [place] [address] Care Team Providers Care Coding Manager Name Role Phone BENITO BEATTY Unavailable PROBLEMS Unknown Problems ALLERGIES No Information ENCOUNTERS Encounter Location Date Diagnosis [facility] [place] [address] [facility] [id number] [address] Oct, [facility] [employer] [address] [place], [place] [id number] Oct, History of sepsis Z86.19 ; History of DVT (deep vein thrombosis) Z86.718 ; Weakness R53.1 and History of alcohol abuse Z87.898 IMMUNIZATIONS No Known Immunizations SOCIAL HISTORY Never Assessed REASON FOR VISIT USP DC PLAN OF CARE VITAL SIGNS MEDICATIONS Medication Instructions Dosage Frequency Start Date End Date Duration Status Alprazolam 0.5 MG Orally 3 times a day 1 tablet as needed 8h 30 days Active ProAir HFA 108 (90 Base) MCG/ACT Inhalation every 4 hrs 2 puffs as needed short of breath, cough, or wheeze 4h Oct, 30 days Active Pantoprazole Sodium 40 MG Orally Once a day 1 tablet 24h 30 days Active Celecoxib 100 MG Orally 2 times a day 1 capsule with food 12h 30 days Active Tamsulosin HCl 0.4 MG Orally Once a day 1 capsule 24h 30 days Active RESULTS No Results PROCEDURES No Known procedures INSTRUCTIONS MEDICATIONS ADMINISTERED No Known Medications MEDICAL (GENERAL) HISTORY Type Description Date Medical History acidosis Medical History embolism Medical History kidney failure Medical History repiratory failure with hypoxia Medical History alcohol dependence Medical History anxiety disorder Medical History BPH Medical History COPD W/acute resp infarct Medical History hemoptysis Medical History hypercalcemia Medical History lobar pneumonia Medical History Osteoarthritis Medical History hypercholesterolemia Medical History Scoliosis Medical History Sepsis Medical History Unspecified Jaundice
--- OUTSIDE RECORDS SUMMARY | 2018-11-26 09:31 | XMS REPORT ---
Author Author BENITO BEATTY Organization [facility] Address [address] [place] [address] Care Team Providers Care Director Data Management Name Role Phone BENITO BEATTY Unavailable PROBLEMS Unknown Problems ALLERGIES Substance Reaction Event Type Date Status Morphine Sulfate Unknown Drug Allergy Oct, Active ENCOUNTERS Encounter Location Date Diagnosis [facility] [address] [facility] [id number] [address] Oct, Via [employer] [address] [place], [place] [id number] Oct, History of sepsis Z86.19 ; History of DVT (deep vein thrombosis) Z86.718 ; Weakness R53.1 and History of alcohol abuse Z87.898 IMMUNIZATIONS No Known Immunizations SOCIAL HISTORY Never Assessed REASON FOR VISIT New Admit --OSWALD Coyne PLAN OF CARE Activity Details Follow Up prn Reason: VITAL SIGNS MEDICATIONS Medication Instructions Dosage Frequency Start Date End Date Duration Status Albuterol Sulfate HFA 108 (90 Base) MCG/ACT Inhalation every 4 hrs 2 puffs as needed 4h Active Tamsulosin HCl 0.4 MG Orally Once a day 1 capsule 24h 30 day(s) Active Pantoprazole Sodium 40 MG Orally Once a day 1 tablet 24h 30 day(s) Active Celecoxib 100 mg Orally twice a day 1 capsule with food 12h Active Alprazolam 0.5 MG Orally TID PRN 1 tablet Active RESULTS No Results PROCEDURES No Known [...]
[2018-11-26] MEDS ORDERED: ONDANSETRON 4 MG/2 ML (SDV) Z0FRAN ONE (09:44)
[2018-11-26] MEDS ORDERED: PHENYLEPHRINE 100 MCG/ML 10 ML (ANESTHESIA) SYR ONE (09:44)
[2018-11-26] MEDS ORDERED: SEVOFLURANE (ULTANE) 15 ML INHAL SOLN ONE (10:23)
--- NOTE | 2018-11-26 10:26 | Pulmonary Procedures ---
Pulmonary Procedures Date of Procedure Date of Service: Nov 26, 2018 Bronch Bronchoscopy with fluoroscopy, mainstem elvin brush x 2, RUL wash, BAL, transbronchial brush x 3, TYSON BAL, transbronchial Lomax x 2, transbronchial forcep bx TYSON x 4 EBUS with transbronchial bx of station 7 lymph nodes were bx under US guidance. Preop DX: mediastinal lymphadenopathy, lung mass PostOP DX: same Complications: None Pt was sedated per anesthesia. Bronchoscopy was advanced through the ED tube and an anatomical undertaken down to the segmental bronchi bilaterally. No endobronchial lesions noted. Bronchoscopy with fluoroscopy, mainstem elvin brush x 2, RUL wash, BAL, transbronchial brush x 3, TYSON BAL, transbronchial Lomax x 2, transbronchial forcep bx TYSON x 4 EBUS with transbronchial bx of station 7 lymph nodes were bx under US guidance. . Pt tolerated procedure well. No complications noted. MARCO ANTONIO BATISTA DO Nov 26, 2018 10:26
[2018-11-26 11:10] VITALS: BP 119/70
--- NOTE | 2018-11-26 11:15 | Anesthesia-General Post-Op ---
General Patient Condition Mental Status/LOC: Same as Preop Cardiovascular: Satisfactory Nausea/Vomiting: Absent Respiratory: Satisfactory Pain: Controlled Complications: Absent Post Op Complications Complications None Follow Up Care/Instructions Patient Instructions None needed. Anesthesia/Patient Condition Patient Condition Patient is doing well, no complaints, stable vital signs, no apparent adverse anesthesia problems. No complications reported per nursing. MOHINI ROSENBERG CRNA Nov 26, 2018 11:15
[2018-11-26 11:40] VITALS: BP 129/80
--- NOTE | 2018-11-26 11:44 | Diagnostic Imaging Report ---
INDICATION: Post bronchoscopy. Frontal chest obtained at 10:38 a.m. and compared to 10/10/2018. FINDINGS: There is cardiomegaly. There is central vascular congestion. There is patchy infiltrate in the right upper lobe and some infiltrate in both lung bases which appear chronic. There is no pneumothorax or pleural fluid following bronchoscopy. There are old left-sided rib fractures. IMPRESSION: Bilateral infiltrates are again present, similar to 10/10/2018. There is cardiomegaly. There is no pneumothorax or pleural fluid following bronchoscopy. Dictated by: Dictated on workstation # [id number]
[2018-11-26 12:41] VITALS: BP 129/80
[2018-11-26] MEDS ORDERED: RT-ALBUTEROL SULF 2.5 MG/3 ML PRE-MIX VIAL ONE (12:56)
--- NOTE | 2018-11-26 13:00 | NUR ---
PATIENTS SAT'S 89-92% ON ROOM AIR, ONCE UP MOVING AROUND HE STARTED GETTING WHEEZY AND CONGESTED, DR. BATISTA NOTIFIED AND RT TX ORDERED. 1320 DR. BATISTA HERE, CXR ORDERED. CALLED OFFICE TO SET UP PORTABLE 02 FOR RIDE HOME, ETC.
[2018-11-26] MEDS ORDERED: RT-ALBUTEROL SULF 2.5 MG/3 ML PRE-MIX VIAL INH ONE (13:15)
--- NOTE | 2018-11-26 13:27 | Pulmonary Progress Note ---
Subjective Time Seen by a Provider: 13:22 Subjective/Events-last exam Called to bedside secondary to persistent hypoxia. CXR reviewed and there is no PTX post bronchoscopy. Sepsis Event Evaluation Height, Weight, BMI Height: 5'10.00" Weight: 172lbs. 0.0oz. 78.939026er; 24.7 BMI Method: Exam Exam Vital Signs Date Time Temp Pulse Resp B/P (MAP) Pulse Ox O2 Delivery O2 Flow Rate FiO2 11/26/18 13:05 89 Room Air 11/26/18 12:41 97.3 87 18 129/80 90 Room Air 11/26/18 11:40 97.3 87 18 129/80 90 Room Air 11/26/18 11:10 97.4 88 18 119/70 94 Room Air 11/26/18 09:41 16 11/26/18 08:11 97.3 93 18 128/83 (98) 94 Room Air Height & Weight Height: 5'10.00" Weight: 172lbs. 0.0oz. 78.693722oe; 24.7 BMI Method: General Appearance: No Apparent Distress, WD/WN, Chronically ill, Obese HEENT: PERRL/EOMI, Normal ENT Inspection, Pharynx Normal Neck: Full Range of Motion, Normal Inspection, Non Tender, Supple Respiratory: Chest Non Tender, No Accessory Muscle Use, No Respiratory Distress , Crackles, Decreased Breath Sounds Cardiovascular: Regular Rate, Rhythm, No Edema, No Gallop, No JVD Capillary Refill: Less Than 3 Seconds Gastrointestinal: normal bowel sounds, non tender, soft, no organomegaly, no pulsatile mass Extremity: Normal Capillary Refill, Normal Inspection, Normal Range of Motion, Non Tender, No Calf Tenderness, No Pedal Edema Neurologic/Psychiatric: Alert, Oriented x3 Skin: Normal Color, Warm/Dry Lymphatic: No Adenopathy Assessment/Plan Assessment/Plan Hypoxia s/p bronchoscopy -Repeat CXR. -DuAnne give - pt states this helped -He denies CP -oxygen qualification test was done last week in my office. PT required 2 liters of oxygen with exertion. My office has already ordered oxygen however pt at the time declined oxygen. I explained to patient why it is very important to keep oxygen sats between 90-94%. He is now ok with accepting oxygen. We are going to have [facility] [place] deliver oxygen set up. I am also going to repeat CXR to ensure there is no concern. MARCO ANTONIO BATISTA DO Nov 26, 2018 13:27
--- NOTE | 2018-11-26 13:35 | NUR ---
CXR DONE, O2 ON AT 4L/M PER N/C WITH SAT'S 93%. RESTING QUIETLY IN BED, WAITING FOR DME.
--- NOTE | 2018-11-26 14:10 | NUR ---
DME HERE FOR INSTRUCTIONS ON 02 AND PORTABLE TANK. SON HERE, WILL TAKE PATIENT HOME.
--- NOTE | 2018-11-26 14:12 | Diagnostic Imaging Report ---
CLINICAL INDICATION: Post bronc followup. EXAM: Portable chest x-ray, upright view. COMPARISON: Chest x-ray dated at 10:38 hrs. Findings: There is interval development of mild bibasilar atelectasis. There is interval improved aeration of the airspace opacity involving the right upper lobe with minimal amount remaining. Stable airspace opacities in the periphery left midlung field. There is no pleural effusion or pneumothorax. Pulmonary vasculature and cardiac silhouette are stable. The remainder of this exam shows no significant interval change compared to the prior study of comparison. IMPRESSION: 1: There is development of mild bibasilar atelectasis. 2: There is improved aeration of the right upper lobe with residual mild airspace opacity remaining. 3: Stable airspace opacities in the periphery of the left midlung field. Dictated by: Dictated on workstation # [id number]
[2018-11-26 14:34] LABS: BODY FLUID SOURCE RUL BRONCH WASH
[2018-11-26 14:39] LABS: BF OTHER CELLS 3 %; BODY FLUID APPEARENCE CLEAR; BODY FLUID COLOR COLORLESS; LYMPHOCYTES,BODY FLUID 11 %
[2018-11-26 15:05] LABS: BF OTHER CELLS 88 %; BODY FLUID APPEARENCE SLT CLDY; BODY FLUID COLOR COLORLESS; BODY FLUID SOURCE RUL BRONCH LAVAGE; LYMPHOCYTES,BODY FLUID 5 %
[2018-11-26 15:14] LABS: BODY FLUID SOURCE LUL BRONCH LAVAGE
[2018-11-26 15:15] LABS: BF OTHER CELLS 65 %; BODY FLUID APPEARENCE SLT CLDY; BODY FLUID COLOR PINK; LYMPHOCYTES,BODY FLUID 5 %
--- NOTE | 2018-11-26 18:41 | Diagnostic Imaging Report ---
INDICATION: Intraoperative fluoroscopy during bronchoscopy. COMPARISON: Chest radiograph of earlier same day. FINDINGS AND IMPRESSION: A total of 21 seconds of fluoroscopy time was utilized during bronchoscopy by Dr. Robertson. Provided image shows endoscope in the right upper lobe. Please see operative report for complete details. Dictated by: Dictated on workstation # [id number]
== END 2018-11-26 14:27 | disposition home or self-care (01) ==
LOC: ENDO 07:21
PROVIDERS: ATTEND Internal Medicine Critical Care Medicine
DX: R91.8 Other nonspecific abnormal finding of lung field (principal); R59.0 Localized enlarged lymph nodes; E78.5 Hyperlipidemia, unspecified; J44.9 Chronic obstructive pulmonary disease, unspecified; Z87.891 Personal history of nicotine dependence; Z79.899 Other long term (current) drug therapy; Z86.718 Personal history of other venous thrombosis and embolism
CPT/HCPCS: 36415; 71045; 85610; 87015; 87070; 87101; 87116; 87205; 87206; 89051; 94640

== ENCOUNTER → 2019-02-05 | Outpatient (CLI) | payer MEDICARE ==
--- NOTE | 2019-02-05 11:53 | Diagnostic Imaging Report ---
INDICATION: Pneumonia. TIME OF EXAM: 11:10 AM Correlation is made with prior chest from 11/26/2018. FINDINGS: The heart size is stable. There appears to be some persistent density in the left base near the costophrenic angle suggestive of minimal infiltrate or atelectasis. Remainder of lung amaya appear to be fairly clear. In particular, the right base has shown some improved aeration. No effusion is seen. There is no pneumothorax. IMPRESSION: Improved aeration of the right lung since exam from 11/26/2018. There is some residual infiltrate or atelectasis in the left base. Dictated by: Dictated on workstation # [id number]
== END ==
LOC: RAD FS 10:58
PROVIDERS: ATTEND Family Medicine
DX: J44.9 Chronic obstructive pulmonary disease, unspecified (principal); J18.9 Pneumonia, unspecified organism
CPT/HCPCS: 71046

== ENCOUNTER → 2019-08-05 | Outpatient (CLI) | payer MEDICARE ==
--- NOTE | 2019-08-05 11:39 | Diagnostic Imaging Report ---
CLINICAL HISTORY: Low back pain. No known injury. COMPARISON: None TECHNIQUE: Three views of the lumbar spine. FINDINGS: There is no acute fracture or dislocation of the lumbar spine. There is levoscoliosis of the lumbar spine centered at the L2 level. Degenerative changes are present in the lumbar spine with marginal osteophytes, disc height loss, and facet hypertrophy. These are greatest at L2-L3. Calcified atherosclerotic plaque is seen in the abdominal aorta. IMPRESSION: 1. No acute fracture or dislocation in the lumbar spine. 2. Levoscoliosis of the lumbar spine centered at the L2 level with associated degenerative changes. Dictated by: Dictated on workstation # [id number]
== END ==
LOC: RAD FS 11:24
PROVIDERS: ATTEND Family Medicine
DX: M99.83 Other biomechanical lesions of lumbar region (principal)
CPT/HCPCS: 72100

== ENCOUNTER 2019-09-06 12:31 | Emergency (ER) | payer MEDICARE ==
[~2019-09-06] VITALS: Ht 167.4 cm; Wt 76.2 kg
[2019-09-06] MEDS ORDERED: cefTRIAXone 1,000 MG/2.86 ml vial (IM ONLY) IM STA (13:02)
--- NOTE | 2019-09-06 13:10 | ED Lower Extremity ---
General Chief Complaint: Skin/Wound Problems Stated Complaint: RT FOOT PAIN Nursing Triage Note: Patient stepped on carpet tack 4 days ago on right heel and is having continued pain and states it is now drainning. Has been putting hydrogen peroxide and alcohol on the wound and covering with bandaids. Nursing Sepsis Screen: No Definite Risk Source: patient History of Present Illness Date Seen by Provider: Sep 06, 2019 Time Seen by Provider: 12:42 Initial Comments 84-year-old male presenting with complaints of pain to his right heel after stepping on the carpet tack on Saturday or Saturday of this last week. He states that he has been getting increasing pain since he stepped on it. He was wearing shoes but has a hole in them and has how he got the injury to his foot. He has been trying to clean the wound with hydrogen peroxide every day. He has been getting some increased drainage from the wound as well as pain. He has been walking on his tiptoes due to the pain in his right heel. He denies any fever or chills. There has been no redness to his heel. He denies any diabetes. He is unsure of his last tetanus shot. Allergies and Home Medications Allergies Coded Allergies: morphine (Verified Adverse Reaction, Unknown, 10/06/18) confusion Home Medications Alprazolam 0.5 Mg Tablet, 0.5 MG PO TID PRN for ANXIETY, (Reported) Celecoxib 200 Mg Capsule, 200 MG PO BID, (Reported) Cephalexin 500 Mg Tablet, 500 MG PO QID Prescribed by: CLARITA CASTILLO on 09/06/19 1315 Pantoprazole Sodium 40 Mg Tablet.dr, 40 MG PO DAILY, (Reported) Tamsulosin HCl 0.4 Mg Cap.er.24h, 0.4 MG PO DAILY@1800, (Reported) Patient Home Medication List Home Medication List Reviewed: Yes Review of Systems Constitutional: No chills, No fever EENTM: no symptoms reported Respiratory: no symptoms reported Cardiovascular: no symptoms reported Gastrointestinal: no symptoms reported Genitourinary: no symptoms reported Musculoskeletal: see HPI Skin: see HPI Psychiatric/Neurological: No Symptoms Reported Past [place]-Khmbry-Rgfbhr Hx Past Med/Social Hx: Reviewed Nursing Past Med/Soc Hx Patient Social History Alcohol Use: Occasionally Uses Number of Drinks Today: II Alcohol Beverage of Choice: Other Recreational Drug Use: No Type Used: Cigarettes Former Smoker, Quit: Nov 24, 2015 2nd Hand Smoke Exposure: No Recent Foreign Travel: No Contact w/Someone Who Travel: No Recent Infectious Disease Expo: No Recent Hopitalizations: Yes Physical Abuse: No Sexual Abuse: No Mistreated: No Fear: No Immunizations Up To Date Tetanus Booster (TDap): Unknown PED Vaccines UTD: No Date of Pneumonia Vaccine: Sep 18, 2018 Date of Influenza Vaccine: Aug 06, 2018 Seasonal Allergies Seasonal Allergies: No Past Medical History Surgeries: Yes Respiratory: Yes Pneumonia, COPD Currently Using CPAP: No Currently Using BIPAP: No Cardiac: Yes Deep Vein Thrombosis, High Cholesterol Neurological: No Sexually Transmitted Disease: No HIV/AIDS: No Genitourinary: Yes Benign Prostatic Hyperpl Gastrointestinal: Yes (duodenitis) Musculoskeletal: Yes Arthritis, Back Injury, Scoliosis Endocrine: No HEENT: No Cancer: No Psychosocial: No Integumentary: No Blood Disorders: No Adverse Reaction/Blood Tranf: No Physical Exam Vital Signs Vital Signs - First Documented 09/06/19 12:45 Temp 36.5 Pulse 104 Resp 16 B/P (MAP) 138/85 (102) Pulse Ox 96 Capillary Refill : Less Than 3 Seconds Height, Weight, BMI Height: 5'10.00" Weight: 172lbs. 0.0oz. 78.195603rz; 27.00 BMI Method: General Appearance: WD/WN, no apparent distress Cardiovascular: normal peripheral pulses Feet: right foot abrasions/lacerations (right heel), right foot pain (mild in right heel), right foot soft tissue tenderness (the right heel), right foot swelling (mild to right heel) Neurologic/Tendon: normal sensation, normal motor functions, normal tendon functions Neurologic/Psychiatric: alert, normal mood/affect, oriented x 3 Skin: normal color, warm/dry Progress/Results/Core Measures Results/Orders My Orders Orders - CLARITA CASTILLO MD Ceftriaxone For Im Use (Rocephin For Im (09/06/19 13:02) Dipht,Pertuss(Acell),Tet Adult (Boostrix (09/06/19 13:15) Lidocaine 1% Inj 20 Ml (Xylocaine 1% Inj (09/06/19 13:15) Wound Dressing-Ed (09/06/19 13:02) Medications Given in ED Current Medications Medications Dose Ordered Sig/Hema Route Start Time Stop Time Status Last Admin Dose Admin Diphtheria/ Tetanus/Acell Pertussis 0.5 ml ONCE ONCE IM 09/06/19 13:15 09/06/19 13:16 DC 09/06/19 13:18 0.5 ML Lidocaine HCl 2.1 ml ONCE ONCE INJ 09/06/19 13:15 09/06/19 13:16 DC 09/06/19 13:17 2.1 ML Vital Signs/I&O 09/06/19 12:45 Temp 36.5 Pulse 104 Resp 16 B/P (MAP) 138/85 (102) Pulse Ox 96 Blood Pressure Mean: 102 POS Progress Progress Note : Progress Note wound on right heel cleaned with betadine and sterile water. No fluctuance noted. no drainage noted. Will dress with antibiotic ointment and a nonstick dressing. update tetanus booster and treat with rocephin shot here. continue oral keflex to treat for possible infection in heel. Counseled to follow up with clinic to monitor healing of the wound as it may need wound care or different antibiotic if not improving. Change to soap and water instead of continued H2O2 for cleaning. Departure Impression Primary Impression: Puncture wound of right heel Qualified Codes: S91.331A - Puncture wound without foreign body, right foot, initial encounter Disposition: 01 HOME, SELF-CARE Condition: Stable Departure-Patient Inst. Decision time for Depature: 13:12 Referrals: SHREYA SALDIVAR MD (PCP/Family) Primary Care Physician Patient Instructions: Cellulitis (Skin Infection), Adult (DC) Add. Discharge Instructions: Keep wound clean with soap and water. Apply antibiotic ointment 2-3 times a day and cover with bandaid. Take antibiotics until gone. Follow up with clinic this week for wound check and to ensure the wound is healing. All discharge instructions reviewed with patient and/or family. Voiced understanding. Scripts Cephalexin (Cephalexin) 500 Mg Tablet 500 MG PO QID for puncture wound heel for 10 Days, #40 TAB 0 Refills Prov: CLARITA CASTILLO MD 09/06/19 CLARITA CASTILLO MD Sep 06, 2019 13:10 POS
[2019-09-06] MEDS ORDERED: TETANUS,DIPTH,PERTUSS P/F (BOOSTRIX) 0.5 ML VIAL IM ONE (13:15)
[2019-09-06] MEDS ORDERED: LIDOCAINE 1% INJ 20 ML 20 ML VIAL INJ ONE (13:15)
[2019-09-06] MEDS ORDERED: CEPH500T PO (13:15)
[2019-09-06 13:34] VITALS: BP 120/68
== END 2019-09-06 13:38 | disposition home or self-care (01) ==
LOC: EDUNIT# 12:31 → ER FS 12:32
DX: S91.331A Puncture wound without foreign body, right foot, initial encounter (principal); J44.9 Chronic obstructive pulmonary disease, unspecified; E78.00 Pure hypercholesterolemia, unspecified; Z86.718 Personal history of other venous thrombosis and embolism; Z88.5 Allergy status to narcotic agent; Z87.891 Personal history of nicotine dependence; W26.8XXA Contact with other sharp object(s), not elsewhere classified, initial encounter
CPT/HCPCS: 90715; 99284

== ENCOUNTER → 2019-10-20 | Outpatient (CLI) | payer MEDICARE ==
[~2019-10-20] MED LIST changes: +CEPH500T PO
--- NOTE | 2019-10-20 11:03 | Diagnostic Imaging Report ---
CLINICAL INDICATION: Patient with cough. EXAM: Chest x-ray. PA and lateral views. COMPARISON: Chest x-ray dated 02/05/2019. FINDINGS: There is stable appearance of the increased lung markings in the left perihilar and left lung base region and inferior right perihilar region which may be related to scarring. There is no interval lung infiltrate. There is no pleural effusion or pneumothorax. The pulmonary vasculature and cardiac silhouette are within normal limits. There is left curvature of the lumbar spine. There is also kyphosis of the thoracolumbar region. IMPRESSION: 1. Stable chest x-ray exam with no interval lung infiltrate. 2. Suspected stable scarring in the inferior right perihilar and left lung base region. Dictated by: Dictated on workstation # [id number]
== END ==
LOC: RAD FS 10:19
PROVIDERS: ATTEND Family Medicine
DX: R05 Cough (principal)
CPT/HCPCS: 71046

== ENCOUNTER 2020-05-09 11:48 | Emergency (ER) | payer MEDICARE, OTHER ==
[~2020-05-09] VITALS: Ht 172.7 cm; Wt 80.0 kg
[~2020-05-09 11:48] MED LIST changes: -TAMS0.4C98 PO; +TMSL.4C PO
[2020-05-09] MEDS ORDERED: LIDOCAINE/EPI 2% 1:100,00 (XYLOCAINE) 20 ML VIAL INJ ONE (12:15)
[2020-05-09] MEDS ORDERED: TETANUS,DIPTH,PERTUSS P/F (BOOSTRIX) 0.5 ML VIAL IM ONE (12:15)
--- NOTE | 2020-05-09 12:20 | ED Upper Extremity ---
General Chief Complaint: Laceration Stated Complaint: RT ARM LAC Source: patient Exam Limitations: no limitations History of Present Illness Date Seen by Provider: May 09, 2020 Time Seen by Provider: 11:52 Initial Comments The patient is a pleasant 85-year-old male presents for evaluation of a laceration to the right arm. He states that he was walking into a foyer and lost his balance and hit his arm on an artificial tree. He is unsure of his tetanus status of this will be updated today. He did not hit his head or lose consciousness and has no head or neck pain. The bleeding is controlled upon arrival. Surrounding the right arm laceration there is a skin tear. Onset: just prior to arrival Severity: mild Pain/Injury Location: right arm Method of Injury: fell Modifying Factors: Improves With Other (denies pain) Allergies and Home Medications Allergies Coded Allergies: morphine (Verified Adverse Reaction, Unknown, 10/06/18) confusion Home Medications Alprazolam 0.5 Mg Tablet, 0.5 MG PO TID PRN for ANXIETY, (Reported) Celecoxib 200 Mg Capsule, 200 MG PO BID, (Reported) Cephalexin 500 Mg Tablet, 500 MG PO QID Prescribed by: CLARITA CASTILLO on 09/06/19 1315 Pantoprazole Sodium 40 Mg Tablet.dr, 40 MG PO DAILY, (Reported) Tamsulosin HCl 0.4 Mg Cap.er.24h, 0.4 MG PO DAILY@1800, (Reported) Patient Home Medication List Home Medication List Reviewed: Yes Review of Systems Constitutional: no symptoms reported EENTM: no symptoms reported Respiratory: no symptoms reported Cardiovascular: no symptoms reported Gastrointestinal: no symptoms reported Genitourinary: no symptoms reported Musculoskeletal: no symptoms reported Skin: other (laceration to right upper arm on the posterior aspect) Psychiatric/Neurological: No Symptoms Reported All Other Systems Reviewed Negative Unless Noted: Yes Past Wsjbfct-Maacrb-Ipcbte Hx Past Med/Social Hx: Reviewed Nursing Past Med/Soc Hx Patient Social History Alcohol Beverage of Choice: Other Type Used: Cigarettes Former Smoker, Quit: Nov 24, 2015 2nd Hand Smoke Exposure: No Recent Foreign Travel: No Contact w/Someone Who Travel: No Recent Hopitalizations: Yes Immunizations Up To Date Tetanus Booster (TDap): Unknown PED Vaccines UTD: No Date of Pneumonia Vaccine: Sep 18, 2018 Date of Influenza Vaccine: Aug 06, 2018 Seasonal Allergies Seasonal Allergies: No Past Medical History Surgeries: Yes Respiratory: Yes Pneumonia, COPD Currently Using CPAP: No Currently Using BIPAP: No Cardiac: Yes Deep Vein Thrombosis, High Cholesterol Neurological: No Sexually Transmitted Disease: No HIV/AIDS: No Genitourinary: Yes Benign Prostatic Hyperpl Gastrointestinal: Yes (duodenitis) Musculoskeletal: Yes Arthritis, Back Injury, Scoliosis Endocrine: No HEENT: No Cancer: No Psychosocial: No Integumentary: No Blood Disorders: No Adverse Reaction/Blood Tranf: No Physical Exam Vital Signs Vital Signs - First Documented 05/09/20 11:50 Temp 36.7 Pulse 115 Resp 22 B/P (MAP) 147/92 (110) Pulse Ox 95 O2 Delivery Room Air Capillary Refill : Height, Weight, BMI Height: 5'10.00" Weight: 172lbs. 0.0oz. 78.252169tc; 27.00 BMI Method: General Appearance: WD/WN, no apparent distress HEENT: PERRL/EOMI, pharynx normal Neck: non-tender, full range of motion Cardiovascular: regular rate, rhythm, no edema, no JVD Respiratory: lungs clear, normal breath sounds, no respiratory distress, no accessory muscle use Gastrointestinal: normal bowel sounds, non tender, soft Shoulder: normal inspection, non-tender, no evidence of injury, normal ROM Elbow/Forearm: Right (right upper posterior arm with linear 4cm laceration, no active bleeding, surrounding skin tear approx 6x7cm) Wrist: Yes normal inspection, Yes non-tender, Yes no evidence of injury, Yes normal ROM Hand: normal inspection, non-tender, no evidence of injury, normal ROM Neurologic/Psychiatric: bell valet II-XII nml as tested, no motor/sensory deficits, alert, normal mood/affect, oriented x 3 Skin: normal color, warm/dry, other (skin tear described above) Procedures/Interventions Wound Location: Upper Extremities Other Wound Location right upper posterior arm Wound Length (cm): 4 Wound's Depth, Shape: superficial, linear Wound Explored: clean Irrigated w/ Saline (ccs): 500 Anesthesia: Lidocaine w/ Epi Volume Anesthetic (ccs): 3 Suture: Plain Suture Size: 4-0 Number of Sutures: 4 Layer Closure?: 1 Progress tolerated the repair very well without any complications Progress/Results/Core Measures Results/Orders My Orders Orders - DREW,NITESH B DO Dipht,Pertuss(Acell),Tet Adult (Boostrix (05/09/20 12:15) Lidocaine/Epi 2% 1:100,000 (Xylocaine/Ep (05/09/20 12:15) Vital Signs/I&O 05/09/20 11:50 Temp 36.7 Pulse 115 Resp 22 B/P (MAP) 147/92 (110) Pulse Ox 95 O2 Delivery Room Air Progress Progress Note : Progress Note @1354 - patient's tetanus was updated. He tolerated the repair without any Occasions. Explained to the patient that the sutures will need to be removed in 7-10 days and to return to the emergency Department immediately for new or worsening symptoms. The patient expresses verbal understanding and is stable for discharge. Departure Impression Primary Impression: Laceration of right upper arm Disposition: 01 HOME, SELF-CARE Condition: Stable Departure-Patient Inst. Decision time for Depature: 13:54 Referrals: SHREYA SALDIVAR MD (PCP/Family) Primary Care Physician Patient Instructions: Laceration Repair With Stitches (DC) Add. Discharge Instructions: The sutures are need to be removed in 7-10 days. You can return here or go to her doctor's office to have them removed. Return to the emergency Department immediately if you have skin redness, fever, new or worsening symptoms. Keep the wound clean and dry. NITESH RUSSELL DO May 09, 2020 12:20
--- OUTSIDE RECORDS SUMMARY | 2020-05-09 12:39 | XMS REPORT ---
Author Author Js SALDIVAR Organization [facility] Address [address] [place] [address] Care Team Providers Care Building Trades Instructor Name Role Phone SHREYA SALDIVAR Unavailable PROBLEMS Type Condition ICD9-CM Code WYS48-JE Code Onset Dates Condition S tatus SNOMED Code Problem Diverticulitis of colon (without mention of hemo rrhage)(562.11) K57.32 Active 961372211 Problem Migraine, unspecified, witho ut mention of intractable migraine without mention of status migrainosus G43.909 Active 32772913 Problem Pneumonia of both lower lobes due to infectious organi sm J18.1 Feb, Active 302914915 Problem Esophageal reflux K21.9 Active 24 9387899 Problem Hyperlipidemia E78.5 Jul, Active 55 374636 Problem Chronic obstructive pulmonary disease, unspecified J44.9 Active 06403031 Problem Benign prostatic hyperplasia without lower urina ry tract symptoms N40.0 Active 266095939 Problem Tobacco use disorder F17.200 11 Feb, 2011 Active 683202576 Problem Major depressive disorder, 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 Active 64260906 Problem Spinal stenosis of lumbar region with neurogenic pb ication M48.062 Active 96217882 Problem Current moderate episode of major depressive disorder without prior episode F32.1 Active 10860236 Problem 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 Active 849920722419070 Problem Anemia of chronic renal failure, stage 3 (moderate) N18.3 Active 845803915 Problem Benign prostatic hyperplasia without lower urina ry tract symptoms N40.0 Active 942606993 ALLERGIES No Information ENCOUNTERS Encounter Location Date Diagnosis [facility] [address] [facility] [id number] [place] [address] Feb, [facility] [address] [facility] 340B [id number] [address] Jan, [facility] [place] [address] 340B [id number] [place] [address] Dec, Eczema, unspecified type L30 .9 ; Chronic obstructive pulmonary disease, unspecified J44.9 and Major depressive disorder, recurrent severe without psychotic features F33.2 [facility] [place] [address] 340B [id number] [place] [address] Oct, Cough R05 ; Spinal stenosis of lumbar region with neurogenic claudication M48.062 and Chronic obstructive pulmonary disease, unspecified J44.9 [facility] [address] 340B [id number] [place] [address] Oct, Acute non-recurrent maxillar y sinusitis J01.00 [facility] [address] 340B [id number], [place] [address] Oct, Acute non-recurrent maxillar y sinusitis J01.00 [facility] [address] 340B [id number] [place] [address] Sep, [facility] [address] 340[id number], [place] [address] Sep, [facility] [address] 340B [id number] [place] [address] Sep, Benign prostatic hyperplasia without lower urinary tract symptoms N40.0 and Puncture wound T14.8XXA [facility] [place] [address] [facility] [id number] 100KS [place] [address] Sep, [facility] [address] 340B [id number] [place] [address] Aug, [facility] [address] 340B [id number], [place] [address] Aug, Acute non-recurrent maxillar y sinusitis J01.00 [facility] [address] 340B [id number] [place] [address] Aug, Acute non-recurrent maxillar y sinusitis J01.00 [facility] [place] [address] 340B [id number] [place] [address] Aug, Acute non-recurrent maxillar y sinusitis J01.00 and Anemia of chronic renal failure, stage 3 (moderate) N18.3 [facility] [place] [address] 340B [id number] [place] [address] Aug, [facility] [place] [address] 340B [id number] [place] [address] Aug, [facility] [place] [address] 340B [id number] [place] [address] Aug, Neuroforaminal stenosis of l umbosacral spine M99.83 and Degenerative scoliosis M41.50 [facility] [place] [address] 340B [id number] [place] [address] Aug, [facility] [place] [address] 340B [id number] [place] [address] Jul, Degenerative scoliosis M41.5 0 and Neuroforaminal stenosis of lumbosacral spine M99.83 [facility] [place] [address] 340B [id number] [place] [address] Jun, [facility] [place] [address] 340B [id number] [place] [address] Jun, [facility] [place] [address] 340B [id number], [place] [address] Jun, Encounter for Medicare annua l wellness exam Z00.00 ; Encounter for immunization Z23 ; Chronic obstructive pulmonary disease, unspecified J44.9 ; Current moderate episode of major depressive disorder wit hout prior episode F32.1 ; Hyperlipidemia E78.5 ; Esophageal reflux K21.9 ; Migraine, unspecified, without mention of intractable migraine without mention of status migrainosus G43.909 and Diverticulitis of colon (without mention of hemorrhage)(562.11) K57.32 [facility] [place] [address] 340B [id number], [place] [address] May, Spinal stenosis of lumbar re gion with neurogenic claudication M48.062 and 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 [facility] [address] 340B [id number] [place] [address] May, [facility] [address] 340B [id number] [place] [address] May, [address] 340B [id number] [place] [address] Apr, Current moderate episode of major depressive disorder without prior episode F32.1 ; 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 ; Encounter for immunization Z23 and Hypoxia R09.[address] 340B [id number] [place] [address] Apr, 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 ; Tobacco use disorder F17.200 ; Hyperlipidemia E78.5 ; Chronic obstructive pulmonary disease, unspecified J44.9 and Current moderate episode of major depressive disorder without prior episode F32.1 [facility] [address] 340B [id number] [place] [address] March, DVT (deep venous thrombosis) , right I82.401 [facility] [address] 340B [id number] [place] [address] March, [address] 340B [id number] [place] [address] March, Current moderate episode of major depressive disorder without prior episode F32.[address] 340B [id number] [place] [address] Feb, DVT (deep venous thrombosis) , right I82.[address] 340B [id number] [place] [address] Feb, DVT (deep venous thrombosis) , right I82.[address] 340B [id number] [address] Feb, Chronic obstructive pulmonar y disease, unspecified J44.9 and Acute deep vein thrombosis (DVT) of popliteal vein of right lower extremity I82.431 [facility] [place] [address] 340B [id number] [place] [address] Feb, [facility] [place] [address] [id number] [address] [place] [address] Jan, [facility] [place] [address] 340B [id number] [place] [address] Jan, [facility] [place] [address] 340B [id number] [place] [address] Jan, DVT (deep venous thrombosis) , right I82.401 [facility] [place] [address] 340B [id number] [place] [address] Jan, DVT (deep venous thrombosis) , right I82.401 [facility] [place] [address] [id number] [address] [place] [address] Dec, [facility] [place] [address] 340B [id number] [place] [address] Dec, Pain in right lower leg M79. 661 and Chronic obstructive pulmonary disease, unspecified J44.9 [facility] [place] [address] 340B [id number] [place] [address] Dec, Pain in right lower leg M79. 661 ; Chronic obstructive pulmonary disease, unspecified J44.9 and DVT (deep venous thrombosis), right I82.401 [facility] [place] [address] [id number] [address] [place] [address] Nov, [facility] [place] [address] [id number] [address] [place] [address] Nov, [facility] [place] [address] [id number] [address] [place] [address] Nov, [facility] [place] [address] [id number] [address] [place] [address] Oct, [facility] [place] [address] [facility] [id number] [address] [place] [address] Oct, [facility] [place] [address] [facility] [id number] [address] [place] [address] Oct, [facility] [address] [place] [id number] Oct, History of sepsis Z86.19 ; History of DV T (deep vein thrombosis) Z86.718 ; Weakness R53.1 and History of alcohol abuse Z87.898 IMMUNIZATIONS No Known Immunizations SOCIAL HISTORY Never Assessed REASON FOR VISIT pharmacy change PLAN OF CARE VITAL SIGNS MEDICATIONS Medication Instructions Dosage Frequency Start Date End Date Duration S tatus Celecoxib 200 MG Orally Once a day 1 capsule with food 24h 30 days Active RESULTS No Results PROCEDURES No Known procedures INSTRUCTIONS MEDICATIONS ADMINISTERED No Known Medications MEDICAL (GENERAL) HISTORY Type Description Date Medical History Migraine Medical History Back disorder Medical History Duodenitis Medical History Diverticulitis Medical History Esophageal reflux Medical History Tobacco use disorder Medical History Pneumonia Medical History DVT (deep venous thrombosis), left Medical History Hyperlipemia Medical History Duodenitis Medical History Esophageal reflux Medical History Closed fracture of patella Hospitalization History Pneumonia Hospitalization History DVT
--- OUTSIDE RECORDS SUMMARY | 2020-05-09 12:39 | XMS REPORT ---
Author Author Js SALDIVAR Organization [facility] Address [address] [place] [address] Care Team Providers Care Packaging Coordinator Name Role Phone SHREYA SALDIVAR Unavailable PROBLEMS Type Condition ICD9-CM Code COE04-GI Code Onset Dates Condition S tatus SNOMED Code Problem Diverticulitis of colon (without mention of hemo rrhage)(562.11) K57.32 Active 303408888 Problem Migraine, unspecified, witho ut mention of intractable migraine without mention of status migrainosus G43.909 Active 18260355 Problem Pneumonia of both lower lobes due to infectious organi sm J18.1 Feb, Active 726037441 Problem Esophageal reflux K21.9 Active 24 7368280 Problem Hyperlipidemia E78.5 Jul, Active 55 235264 Problem Chronic obstructive pulmonary disease, unspecified J44.9 Active 42784324 Problem Benign prostatic hyperplasia without lower urina ry tract symptoms N40.0 Active 176133611 Problem Tobacco use disorder F17.200 11 Feb, 2011 Active 771339306 Problem Major depressive disorder, 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 Active 34598875 Problem Spinal stenosis of lumbar region with neurogenic pb ication M48.062 Active 82327514 Problem Current moderate episode of major depressive disorder without prior episode F32.1 Active 37011954 Problem 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 Active 794527866912498 Problem Anemia of chronic renal failure, stage 3 (moderate) N18.3 Active 407620035 Problem Benign prostatic hyperplasia without lower urina ry tract symptoms N40.0 Active 149665077 ALLERGIES No Information ENCOUNTERS Encounter Location Date Diagnosis [address] 340B [id number] [place] [address] Jan, [address] 340[id number] [address] Dec, Eczema, unspecified type L30 .9 ; Chronic obstructive pulmonary disease, unspecified J44.9 and Major depressive disorder, recurrent severe without psychotic features F33.2 [facility] [place] [address] 340B [id number] [place] [address] Oct, Cough R05 ; Spinal stenosis of lumbar region with neurogenic claudication M48.062 and Chronic obstructive pulmonary disease, unspecified J44.9 [facility] [place] [address] 340B [id number] [place] [address] Oct, Acute non-recurrent maxillar y sinusitis J01.00 [facility] [address] 340[id number], [place] [address] Oct, Acute non-recurrent maxillar y sinusitis J01.00 [facility] [address] 340B [id number], [place] [address] Sep, [facility] [address] 340B [id number], [place] [address] Sep, [address] 340B [id number], [place] [address] Sep, Benign prostatic hyperplasia without lower urinary tract symptoms N40.0 and Puncture wound T14.8XXA [facility] [address] [facility] [id number] 100[address] [place] [address] Sep, [facility] [address] 340B [id number], [place] [address] Aug, [facility] [address] 340B [id number] [place] [address] Aug, Acute non-recurrent maxillar y sinusitis J01.00 [facility] [address] 340B [id number] [place] [address] Aug, Acute non-recurrent maxillar y sinusitis J01.00 [facility] [address] 340B [id number], [place] [address] Aug, Acute non-recurrent maxillar y sinusitis J01.00 and Anemia of chronic renal failure, stage 3 (moderate) N18.3 [facility] [place] [address] 340B [id number] [place] [address] Aug, [facility] [place] [address] 340B [id number] [place] [address] Aug, [facility] [place] [address] 340B [id number] [place] [address] Aug, Neuroforaminal stenosis of l umbosacral spine M99.83 and Degenerative scoliosis M41.50 [facility] [place] [address] 340B [id number] [place] [address] Aug, [facility] [place] [address] 340B [id number] [place] [address] Jul, Degenerative scoliosis M41.5 0 and Neuroforaminal stenosis of lumbosacral spine M99.83 [facility] [place] [address] 340B [id number] [place] [address] Jun, [facility] [place] [address] 340B [id number] [place] [address] Jun, [facility] [place] [address] 340B [id number] [place] [address] Jun, Encounter for Medicare annua l wellness [...] of colon (without mention of hemorrhage)(562.11) K57.32 [facility] [place] [address] 340B [id number] [place] [address] May, Spinal stenosis of lumbar re gion with neurogenic claudication M48.062 and 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 [facility] [place] [address] 340B [id number] [place] [address] May, [facility] [address] 340B [id number] [place] [address] May, [facility] [address] 340B [id number] [place] [address] Apr, Current moderate episode of major depressive disorder without prior episode F32.1 ; 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 ; Encounter for immunization Z23 and Hypoxia R09.02 [facility] [place] [address] 340B [id number] [place] [address] Apr, 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 ; Tobacco use disorder F17.200 ; Hyperlipidemia E78.5 ; Chronic obstructive pulmonary disease, unspecified J44.9 and Current moderate episode of major depressive disorder without prior episode F32.1 [facility] [address] 340B [id number] [place] [address] March, DVT (deep venous thrombosis) , right I82.401 [facility] [address] 340B [id number] [place] [address] March, [facility] [address] 340B [id number] [place] [address] March, Current moderate episode of major depressive disorder without prior episode F32.1 [facility] [address] 340B [id number] [place] [address] Feb, DVT (deep venous thrombosis) , right I82.401 [facility] [place] [address] 340B [id number] [place] [address] Feb, DVT (deep venous thrombosis) , right I82.401 [facility] [address] 340B [id number] [place] [address] Feb, Chronic obstructive pulmonar y disease, unspecified J44.9 and Acute deep vein thrombosis (DVT) of popliteal vein of right lower extremity I82.431 [facility] [place] [address] 340[place] [id number] [place] [address] Feb, [facility] [address] [id number] [address] [place] [address] Jan, [facility] [place] [address] 340B [id number] [place] [address] Jan, [facility] [place] [address] 340[place] [id number], [place] [address] Jan, DVT (deep venous thrombosis) , right I82.401 [facility] [place] [address] 340B [id number] [place] [address] Jan, DVT (deep venous thrombosis) , right I82.401 [facility] [address] [id number] [address] [place] [address] Dec, [facility] [place] [address] 340B [id number] [place] [address] Dec, Pain in right lower leg M79. 661 and Chronic obstructive pulmonary disease, unspecified J44.9 [facility] [place] [address] 340B [id number] [place] [address] Dec, Pain in right lower leg M79. 661 ; Chronic obstructive pulmonary disease, unspecified J44.9 and DVT (deep venous thrombosis), right I82.401 [facility] [address] [id number] [address] [place] [address] Nov, [facility] [address] [id number] [address] [place] [address] Nov, [facility] [address] [id number] [address] [place] [address] Nov, [facility] [address] [id number] [address] [place] [address] Oct, [facility] [address] [facility] [id number] [address] [place] [address] Oct, [facility] [address] [facility] [id number] [address] [place] [address] Oct, [facility] [address] [place] [id number] Oct, History of sepsis Z86.19 ; History of DV T (deep vein thrombosis) Z86.718 ; Weakness R53.1 and History of alcohol abuse Z87.898 IMMUNIZATIONS No Known Immunizations SOCIAL HISTORY Never Assessed REASON FOR VISIT Medication question PLAN OF CARE VITAL SIGNS MEDICATIONS Unknown Medications RESULTS No Results PROCEDURES No Known procedures [...]
--- OUTSIDE RECORDS SUMMARY | 2020-05-09 12:40 | XMS REPORT | Continuity of Care Document ---
Author Organization Unknown Address Unknown Phone Unavailable Allergies Active Description Code Type Severity Reaction Onset Reported/Identified Relationship to Patient Clinical Status Yes morphine [id number] Drug Allergy Unknown N/A 10/06/2018 Medications There is no data. Problems Date Dx Coded Attending Type Code Diagnosis Diagnosed By 10/08/2018 TAMMIE SCHULZ MD, Ot A41. 9 SEPSIS, UNSPECIFIED ORGANISM 10/08/2018 TAMMIE SCHULZ MD Ot E78. 00 PURE HYPERCHOLESTEROLEMIA, UNSPECIFIED 10/08/2018 TAMMIE SCHULZ MD Ot E83. 52 HYPERCALCEMIA 10/08/2018 TAMMIE SCHULZ MD Ot E87. 2 ACIDOSIS 10/08/2018 TAMMIE SCHULZ MD Ot F10. 20 ALCOHOL DEPENDENCE, UNCOMPLICATED 10/08/2018 TAMMIE SCHULZ MD Ot F41. 9 ANXIETY DISORDER, UNSPECIFIED 10/08/2018 TAMMIE SCHULZ MD Ot I82.402 ACUTE EMBOLISM AND THOMBOS UNSP DEEP VEI 10/08/2018 TAMMIE SCHULZ MD Ot J18. 1 LOBAR PNEUMONIA, UNSPECIFIED ORGANISM 10/08/2018 TAMMIE SCHULZ MD Ot J44. 0 CHRONIC OBSTRUCTIVE PULMON DISEASE W ACU 10/08/2018 TAMMIE SCHULZ MD Ot J96. 01 ACUTE RESPIRATORY FAILURE WITH HYPOXIA 10/08/2018 TAMMIE SCHULZ MD Ot M19. 91 PRIMARY OSTEOARTHRITIS, UNSPECIFIED SITE 10/08/2018 TAMMIE SCHULZ MD, Ot M41. 9 SCOLIOSIS, UNSPECIFIED 10/08/2018 TAMMIE SCHULZ MD Ot N17. 9 ACUTE KIDNEY FAILURE, UNSPECIFIED 10/08/2018 TAMMIE SCHULZ MD Ot N40. 0 BENIGN PROSTATIC HYPERPLASIA WITHOUT LOW 10/08/2018 TAMMIE SCHULZ MD Ot R04. 2 HEMOPTYSIS 10/08/2018 TAMMIE SCHULZ MD Ot R17 UNSPECIFIED JAUNDICE 10/08/2018 TAMMIE SCHULZ MD Ot R74. 8 ABNORMAL LEVELS OF OTHER SERUM ENZYMES 10/08/2018 TAMMIE SCHULZ MD Ot R79. 1 ABNORMAL COAGULATION PROFILE 10/08/2018 TAMMIE SCHULZ MD Ot Z66 DO NOT RESUSCITATE 10/08/2018 TAMMIE SCHULZ MD Ot Z79. 01 [facility] (CURRENT) USE OF ANTICOAGULANT 10/08/2018 TAMMIE SCHULZ MD, Ot Z86.718 PERSONAL HISTORY OF OTHER VENOUS THROMBO 10/08/2018 TAMMIE SCHULZ MD Ot Z87.891 PERSONAL HISTORY OF NICOTINE DEPENDENCE 10/08/2018 TAMMIE SCHULZ MD Ot A41. 9 SEPSIS, UNSPECIFIED ORGANISM 10/08/2018 TAMMIE SCHULZ MD Ot E78. 00 PURE HYPERCHOLESTEROLEMIA, UNSPECIFIED 10/08/2018 TAMMIE SCHULZ MD Ot E83. 52 HYPERCALCEMIA 10/08/2018 TAMMIE SCHULZ MD Ot E87. 2 ACIDOSIS 10/08/2018 TAMMIE SCHULZ MD Ot F10. 20 ALCOHOL DEPENDENCE, UNCOMPLICATED 10/08/2018 TAMMIE SCHULZ MD Ot F41. 9 ANXIETY DISORDER, UNSPECIFIED 10/08/2018 TAMMIE SCHULZ MD Ot I82.402 ACUTE EMBOLISM AND THOMBOS UNSP DEEP VEI 10/08/2018 TAMMIE SCHULZ MD Ot J18. 1 LOBAR PNEUMONIA, UNSPECIFIED ORGANISM 10/08/2018 TAMMIE SCHULZ MD Ot J44. 0 CHRONIC OBSTRUCTIVE PULMON DISEASE W ACU 10/08/2018 TAMMIE SCHULZ MD Ot J96. 01 ACUTE RESPIRATORY FAILURE WITH HYPOXIA 10/08/2018 TAMMIE SCHULZ MD Ot M19. 91 PRIMARY OSTEOARTHRITIS, UNSPECIFIED SITE 10/08/2018 TAMMIE SCHULZ MD Ot M41. 9 SCOLIOSIS, UNSPECIFIED 10/08/2018 TAMMIE SCHULZ MD Ot N17. 9 ACUTE KIDNEY FAILURE, UNSPECIFIED 10/08/2018 TAMMIE SCHULZ MD Ot N40. 0 BENIGN PROSTATIC HYPERPLASIA WITHOUT LOW 10/08/2018 TAMMIE SCHULZ MD Ot R04. 2 HEMOPTYSIS 10/08/2018 TAMMIE SCHULZ MD Ot R17 UNSPECIFIED JAUNDICE 10/08/2018 TAMMIE SCHULZ MD Ot R74. 8 ABNORMAL LEVELS OF OTHER SERUM ENZYMES 10/08/2018 TAMMIE SCHULZ MD Ot R79. 1 ABNORMAL COAGULATION PROFILE 10/08/2018 TAMMIE SCHULZ MD Ot Z66 DO NOT RESUSCITATE 10/08/2018 TAMMIE SCHULZ MD Ot Z79. 01 [facility] (CURRENT) USE OF ANTICOAGULANT 10/08/2018 TAMMIE SCHULZ MD Ot Z86.718 PERSONAL HISTORY OF OTHER VENOUS THROMBO 10/08/2018 TAMMIE SCHULZ MD Ot Z87.891 PERSONAL HISTORY OF NICOTINE DEPENDENCE 10/08/2018 TAMMIE SCHULZ MD Ot A41. 9 SEPSIS, UNSPECIFIED ORGANISM 10/08/2018 TAMMIE SCHULZ MD Ot E78. 00 PURE HYPERCHOLESTEROLEMIA, UNSPECIFIED 10/08/2018 TAMMIE SCHULZ MD Ot E83. 52 HYPERCALCEMIA 10/08/2018 TAMMIE SCHULZ MD Ot E87. 2 ACIDOSIS 10/08/2018 TAMMIE SCHULZ MD Ot F10. 20 ALCOHOL DEPENDENCE, UNCOMPLICATED 10/08/2018 TAMMIE SCHULZ MD Ot F41. 9 ANXIETY DISORDER, UNSPECIFIED 10/08/2018 TAMMIE SCHULZ MD Ot I82.402 ACUTE EMBOLISM AND THOMBOS UNSP DEEP VEI 10/08/2018 TAMMIE SCHULZ MD Ot J18. 1 LOBAR PNEUMONIA, UNSPECIFIED ORGANISM 10/08/2018 TAMMIE SCHULZ MD Ot J44. 0 CHRONIC OBSTRUCTIVE PULMON DISEASE W ACU 10/08/2018 TAMMIE SCHULZ MD Ot J96. 01 ACUTE RESPIRATORY FAILURE WITH HYPOXIA 10/08/2018 TAMMIE SCHULZ MD Ot M19. 91 PRIMARY OSTEOARTHRITIS, UNSPECIFIED SITE 10/08/2018 TAMMIE SCHULZ MD Ot M41. 9 SCOLIOSIS, UNSPECIFIED 10/08/2018 TAMMIE SCHULZ MD Ot N17. 9 ACUTE KIDNEY FAILURE, UNSPECIFIED 10/08/2018 TAMMIE SCHULZ MD Ot N40. 0 BENIGN PROSTATIC HYPERPLASIA WITHOUT LOW 10/08/2018 TAMMIE SCHULZ MD Ot R04. 2 HEMOPTYSIS 10/08/2018 TAMMIE SCHULZ MD Ot R17 UNSPECIFIED JAUNDICE 10/08/2018 TAMMIE SCHULZ MD Ot R74. 8 ABNORMAL LEVELS OF OTHER SERUM ENZYMES 10/08/2018 TAMMIE SCHULZ MD Ot R79. 1 ABNORMAL COAGULATION PROFILE 10/08/2018 TAMMIE SCHULZ MD Ot Z66 DO NOT RESUSCITATE 10/08/2018 TAMMIE SCHULZ MD Ot Z79. 01 [employer] (CURRENT) USE OF ANTICOAGULANT 10/08/2018 TAMMIE SCHULZ MD Ot Z86.718 PERSONAL HISTORY OF OTHER VENOUS THROMBO 10/08/2018 TAMMIE SCHULZ MD Ot Z87.891 PERSONAL HISTORY OF NICOTINE DEPENDENCE 10/09/2018 TAMMIE SCHULZ MD Ot A41. 9 SEPSIS, UNSPECIFIED ORGANISM 10/09/2018 TAMMIE SCHULZ MD Ot E78. 00 PURE HYPERCHOLESTEROLEMIA, UNSPECIFIED 10/09/2018 TAMMIE SCHULZ MD Ot E83. 52 HYPERCALCEMIA 10/09/2018 TAMMIE SCHULZ MD Ot E87. 2 ACIDOSIS 10/09/2018 TAMMIE SCHULZ MD Ot F10. 20 ALCOHOL DEPENDENCE, UNCOMPLICATED 10/09/2018 TAMMIE SCHULZ MD Ot F41. 9 ANXIETY DISORDER, UNSPECIFIED 10/09/2018 TAMMIE SCHULZ MD Ot I82.402 ACUTE EMBOLISM AND THOMBOS UNSP DEEP VEI 10/09/2018 TAMMIE SCHULZ MD Ot J18. 1 LOBAR PNEUMONIA, UNSPECIFIED ORGANISM 10/09/2018 TAMMIE SCHULZ MD Ot J44. 0 CHRONIC OBSTRUCTIVE PULMON DISEASE W ACU 10/09/2018 TAMMIE SCHULZ MD Ot J96. 01 ACUTE RESPIRATORY FAILURE WITH HYPOXIA 10/09/2018 TAMMIE SCHULZ MD Ot M19. 91 PRIMARY OSTEOARTHRITIS, UNSPECIFIED SITE 10/09/2018 TAMMIE SCHULZ MD Ot M41. 9 SCOLIOSIS, UNSPECIFIED 10/09/2018 TAMMIE SCHULZ MD Ot N17. 9 ACUTE KIDNEY FAILURE, UNSPECIFIED 10/09/2018 TAMMIE SCHULZ MD Ot N40. 0 BENIGN PROSTATIC HYPERPLASIA WITHOUT LOW 10/09/2018 TAMMIE SCHULZ MD Ot R04. 2 HEMOPTYSIS 10/09/2018 TAMMIE SCHULZ MD Ot R17 UNSPECIFIED JAUNDICE 10/09/2018 TAMMIE SCHULZ MD Ot R74. 8 ABNORMAL LEVELS OF OTHER SERUM ENZYMES 10/09/2018 TAMMIE SCHULZ MD Ot R79. 1 ABNORMAL COAGULATION PROFILE 10/09/2018 TAMMIE SCHULZ MD Ot Z66 DO NOT RESUSCITATE 10/09/2018 TAMMIE SCHULZ MD Ot Z79. 01 [employer] (CURRENT) USE OF ANTICOAGULANT 10/09/2018 TAMMIE SCHULZ MD Ot Z86.718 PERSONAL HISTORY OF OTHER VENOUS THROMBO 10/09/2018 TAMMIE SCHULZ MD, Ot Z87.891 PERSONAL HISTORY OF NICOTINE DEPENDENCE 10/10/2018 TAMMIE SCHULZ MD Ot A41. 9 SEPSIS, UNSPECIFIED ORGANISM 10/10/2018 TAMMIE SCHULZ MD Ot E78. 00 PURE HYPERCHOLESTEROLEMIA, UNSPECIFIED 10/10/2018 TAMMIE SCHULZ MD Ot E83. 52 HYPERCALCEMIA 10/10/2018 TAMMIE SCHULZ MD Ot E87. 2 ACIDOSIS 10/10/2018 TAMMIE SCHULZ MD Ot F10. 20 ALCOHOL DEPENDENCE, UNCOMPLICATED 10/10/2018 TAMMIE SCHULZ MD Ot F41. 9 ANXIETY DISORDER, UNSPECIFIED 10/10/2018 TAMMIE SCHULZ MD Ot I82.402 ACUTE EMBOLISM AND THOMBOS UNSP DEEP VEI 10/10/2018 TAMMIE SCHULZ MD Ot J18. 1 LOBAR PNEUMONIA, UNSPECIFIED ORGANISM 10/10/2018 TAMMIE SCHULZ MD Ot J44. 0 CHRONIC OBSTRUCTIVE PULMON DISEASE W ACU 10/10/2018 TAMMIE SCHULZ MD Ot J96. 01 ACUTE RESPIRATORY FAILURE WITH HYPOXIA 10/10/2018 TAMMIE SCHULZ MD Ot M19. 91 PRIMARY OSTEOARTHRITIS, UNSPECIFIED SITE 10/10/2018 TAMMIE SCHULZ MD Ot M41. 9 SCOLIOSIS, UNSPECIFIED 10/10/2018 TAMMIE SCHULZ MD Ot N17. 9 ACUTE KIDNEY FAILURE, UNSPECIFIED 10/10/2018 TAMMIE SCHULZ MD Ot N40. 0 BENIGN PROSTATIC HYPERPLASIA WITHOUT LOW 10/10/2018 TAMMIE SCHULZ MD Ot R04. 2 HEMOPTYSIS 10/10/2018 TAMMIE SCHULZ MD Ot R17 UNSPECIFIED JAUNDICE 10/10/2018 TAMMIE SCHULZ MD Ot R74. 8 ABNORMAL LEVELS OF OTHER SERUM ENZYMES 10/10/2018 TAMMIE SCHULZ MD Ot R79. 1 ABNORMAL COAGULATION PROFILE 10/10/2018 TAMMIE SCHULZ MD Ot Z66 DO NOT RESUSCITATE 10/10/2018 TAMMIE SCHULZ MD Ot Z79. 01 [facility] (CURRENT) USE OF ANTICOAGULANT 10/10/2018 TAMMIE SCHULZ MD Ot Z86.718 PERSONAL HISTORY OF OTHER VENOUS THROMBO 10/10/2018 TAMMIE SCHULZ MD Ot Z87.891 PERSONAL HISTORY OF NICOTINE DEPENDENCE 10/10/2018 TAMMIE SCHULZ MD Ot A41. 9 SEPSIS, UNSPECIFIED ORGANISM 10/10/2018 TAMMIE SCHULZ MD Ot E78. 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 52 HYPERCALCEMIA 10/10/2018 TAMMIE SCHULZ MD Ot E87. 2 ACIDOSIS 10/10/2018 TAMMIE SCHULZ MD Ot F10. 20 ALCOHOL DEPENDENCE, UNCOMPLICATED 10/10/2018 TAMMIE SCHULZ MD Ot F41. 9 ANXIETY DISORDER, UNSPECIFIED 10/10/2018 TAMMIE SCHULZ MD Ot I82.402 ACUTE EMBOLISM AND THOMBOS UNSP DEEP VEI 10/10/2018 TAMMIE SCHULZ MD Ot J18. 1 LOBAR PNEUMONIA, UNSPECIFIED ORGANISM 10/10/2018 TAMMIE SCHULZ MD Ot J44. 0 CHRONIC OBSTRUCTIVE PULMON DISEASE W ACU 10/10/2018 TAMMIE SCHULZ MD Ot J96. 01 ACUTE RESPIRATORY FAILURE WITH HYPOXIA 10/10/2018 TAMMIE SCHULZ MD Ot M19. 91 PRIMARY OSTEOARTHRITIS, UNSPECIFIED SITE 10/10/2018 TAMMIE SCHULZ MD Ot M41. 9 SCOLIOSIS, UNSPECIFIED 10/10/2018 TAMMIE SCHULZ MD Ot N17. 9 ACUTE KIDNEY FAILURE, UNSPECIFIED 10/10/2018 TAMMIE SCHULZ MD Ot N40. 0 BENIGN PROSTATIC HYPERPLASIA WITHOUT LOW 10/10/2018 TAMMIE SCHULZ MD Ot R04. 2 HEMOPTYSIS 10/10/2018 TAMMIE SCHULZ MD Ot R17 UNSPECIFIED JAUNDICE 10/10/2018 TAMMIE SCHULZ MD Ot R65. 20 SEVERE SEPSIS WITHOUT SEPTIC SHOCK 10/10/2018 TAMMIE SCHULZ MD Ot R74. 8 ABNORMAL LEVELS OF OTHER SERUM ENZYMES 10/10/2018 TAMMIE SCHULZ MD, Ot R79. 1 ABNORMAL COAGULATION PROFILE 10/10/2018 TAMMIE SCHULZ MD Ot Z66 DO NOT RESUSCITATE 10/10/2018 TAMMIE SCHULZ MD, Ot Z79. 01 [employer] (CURRENT) USE OF ANTICOAGULANT 10/10/2018 TAMMIE SCHULZ MD, Ot Z86.718 PERSONAL HISTORY OF OTHER VENOUS THROMBO 10/10/2018 TAMMIE SCHULZ MD, Ot Z87.891 PERSONAL HISTORY OF NICOTINE DEPENDENCE 11/24/2018 MARCO ANTONIO BATISTA DO Ot Z01.818 ENCOUNTER FOR OTHER PREPROCEDURAL EXAMIN 11/26/2018 MARCO ANTONIO BATISTA DO Ot J18. 1 LOBAR PNEUMONIA, UNSPECIFIED ORGANISM 11/26/2018 MARCO ANTONIO BATISTA DO Ot J98. 4 OTHER DISORDERS OF LUNG 11/26/2018 MARCO ANTONIO BATISTA DO Ot R91. 8 OTHER NONSPECIFIC ABNORMAL FINDING OF MANDA 11/26/2018 MARCO ANTONIO BATISTA DO Ot E78. 5 HYPERLIPIDEMIA, UNSPECIFIED 11/26/2018 MARCO ANTONIO BATISTA DO Ot J44. 9 CHRONIC OBSTRUCTIVE PULMONARY DISEASE, U 11/26/2018 MARCO ANTONIO BATISTA DO Ot R59. 0 LOCALIZED ENLARGED LYMPH NODES 11/26/2018 MARCO ANTONIO BATISTA DO Ot R91. 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 5 HYPERLIPIDEMIA, UNSPECIFIED 11/28/2018 MARCO ANTONIO BATISTA DO Ot J44. 9 CHRONIC OBSTRUCTIVE PULMONARY DISEASE, U 11/28/2018 LYNNE IVYMARCO ANTONIO Ot R59. 0 LOCALIZED ENLARGED LYMPH NODES 11/28/2018 MARCO ANTONIO BATISTA DO Ot R91. 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 5 HYPERLIPIDEMIA, UNSPECIFIED 12/03/2018 MARCO ANTONIO BATISTA DO Ot J44. 9 CHRONIC OBSTRUCTIVE PULMONARY DISEASE, U 12/03/2018 MARCO ANTONIO BATISTA DO Ot R59. 0 LOCALIZED ENLARGED LYMPH NODES 12/03/2018 MARCO ANTONIO BATISTA DO Ot R91. 8 OTHER NONSPECIFIC ABNORMAL FINDING OF MANDA 12/03/2018 MARCO ANTONIO BATISTA DO Ot Z79.899 OTHER [facility] (CURRENT) DRUG THERAPY 12/03/2018 MARCO ANTONIO BATISTA DO Ot Z86.718 PERSONAL HISTORY OF OTHER VENOUS THROMBO 12/03/2018 MARCO ANTONIO BATISTA DO Ot Z87.891 PERSONAL HISTORY OF NICOTINE DEPENDENCE 12/17/2018 MARCO ANTONIO BATITSA DO Ot J18. 1 LOBAR PNEUMONIA, UNSPECIFIED ORGANISM 12/17/2018 MARCO ANTONIO BATISTA DO Ot J98. 4 OTHER DISORDERS OF LUNG 12/17/2018 MARCO ANTONIO BATISTA DO Ot R91. 8 OTHER NONSPECIFIC ABNORMAL FINDING OF MANDA 12/30/2018 MARCO ANTONIO BATISTA DO Ot J18. 1 LOBAR PNEUMONIA, UNSPECIFIED ORGANISM 12/30/2018 MARCO ANTONIO BATISTA DO Ot J98. 4 OTHER DISORDERS OF LUNG 12/30/2018 MARCO ANTONIO BATISTA DO Ot R91. 8 OTHER NONSPECIFIC ABNORMAL FINDING OF MANDA 02/06/2019 SHREYA SALDIVAR MD Ot J18.9 PNEUMONIA, UNSPECIFIED ORGANISM 02/06/2019 SHREYA SALDIVAR MD Ot J44.9 CHRONIC OBSTRUCTIVE PULMONARY DISEASE, U 03/02/2019 SHREYA SALDIVAR MD Ot J18.9 PNEUMONIA, UNSPECIFIED ORGANISM 03/02/2019 SHREYA SALDIVAR MD Ot J44.9 CHRONIC OBSTRUCTIVE PULMONARY DISEASE, U 08/05/2019 MARCO ANTONIO BATISTA DO Ot J18. 1 LOBAR PNEUMONIA, UNSPECIFIED ORGANISM 08/05/2019 MARCO ANTONIO BATISTA DO Ot J98. 4 OTHER DISORDERS OF LUNG 08/05/2019 MARCO ANTONIO BATISTA DO Ot R91. 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 09/06/2019 CLARITA CASTILLO MD Ot E78.0 0 PURE HYPERCHOLESTEROLEMIA, UNSPECIFIED 09/06/2019 CLARITA CASTILLO MD, Ot J44.9 CHRONIC OBSTRUCTIVE PULMONARY DISEASE, U 09/06/2019 CLARITA CASTILLO MD Ot M79.6 71 PAIN IN RIGHT FOOT 09/06/2019 CLARITA CASTILLO MD Ot S91.331A PUNCTURE WOUND WITHOUT FOREIGN BODY, RIG 09/06/2019 CLARITA CASTILLO MD Ot W26.8XXA CONTACT WITH OTHER SHARP OBJECT(S), NEC, 09/06/2019 CLARITA CASTILLO MD Ot Z86.7 18 PERSONAL HISTORY OF OTHER VENOUS THROMBO 09/06/2019 CLARITA CASTILLO MD Ot Z87.8 91 PERSONAL HISTORY OF NICOTINE DEPENDENCE 09/06/2019 CLARITA CASTILLO MD Ot Z88.5 ALLERGY STATUS TO NARCOTIC AGENT STATUS 09/10/2019 CLARITA CASTILLO MD Ot E78.0 0 PURE HYPERCHOLESTEROLEMIA, UNSPECIFIED 09/10/2019 CLARITA CASTILLO MD, Ot J44.9 CHRONIC OBSTRUCTIVE PULMONARY DISEASE, U 09/10/2019 CLARITA CASTILLO MD Ot M79.6 71 PAIN IN RIGHT FOOT 09/10/2019 CLARITA CASTILLO MD, Ot S91.331A PUNCTURE WOUND WITHOUT FOREIGN BODY, RIG 09/10/2019 CLARITA CASTILLO MD Ot W26.8XXA CONTACT WITH OTHER SHARP OBJECT(S), NEC, 09/10/2019 CLARITA CASTILLO MD Ot Z86.7 18 PERSONAL HISTORY OF OTHER VENOUS THROMBO 09/10/2019 CLARITA CASTILLO MD, Ot Z87.8 91 PERSONAL HISTORY OF NICOTINE DEPENDENCE 09/10/2019 CLARITA CASTILLO MD, Ot Z88.5 ALLERGY STATUS TO NARCOTIC AGENT STATUS 09/21/2019 CLARITA CASTILLO MD, Ot E78.0 0 PURE HYPERCHOLESTEROLEMIA, UNSPECIFIED 09/21/2019 CLARITA CASTILLO MD, Ot J44.9 CHRONIC OBSTRUCTIVE PULMONARY DISEASE, U 09/21/2019 CLARITA CASTILLO MD, Ot M79.6 71 PAIN IN RIGHT FOOT 09/21/2019 CLARITA CASTILLO MD, Ot S91.331A PUNCTURE WOUND WITHOUT FOREIGN BODY, RIG 09/21/2019 CLARITA CASTILLO MD, Ot W26.8XXA CONTACT WITH OTHER SHARP OBJECT(S), NEC, 09/21/2019 CLARITA CASTILLO MD, Ot Z86.7 18 PERSONAL HISTORY OF OTHER VENOUS THROMBO 09/21/2019 CLARITA CASTILLO MD, Ot Z87.8 91 PERSONAL HISTORY OF NICOTINE DEPENDENCE 09/21/2019 CLARITA CASTILLO MD, Ot Z88.5 ALLERGY STATUS TO NARCOTIC AGENT STATUS 11/10/2019 SHREYA SALDIVAR MD Ot R0 5 COUGH Procedures There is no data. Results Test Result Range Complete blood count (CBC) with automate d white blood cell (WBC) differential - 10/06/18 19:37 Blood leukocytes automated count (number/volume) 22.6 10*3/uL 4.3-11.0 Blood erythrocytes automated count (number/volume) 4.21 10*6/uL 4.35-5.85 Venous blood hemoglobin measurement (mass/volume) 12.1 g/dL 13.3-17.7 Blood hematocrit (volume fraction) 37 % 40-54 Automated erythrocyte mean corpuscular volume 87 [ foz_us] 80-99 Automated erythrocyte mean corpuscular h emoglobin (mass per erythrocyte) 29 pg 25-34 Automated erythrocyte mean corpuscular h emoglobin concentration measurement (mass/volume) 33 g/dL 32-36 Automated erythrocyte distribution width ratio 16. 1 % 10.0- 14.5 Automated blood platelet count (count/volume) 216 10*3/uL 130-400 Automated blood platelet mean volume measurement 10.0 [foz_us] 7.4-10.4 Automated blood neutrophils/100 leukocytes 92 % 42-75 Automated blood lymphocytes/100 leukocytes 3 % 12-44 Blood monocytes/100 leukocytes 5 % 0-12 Automated blood eosinophils/100 leukocytes 0 % 0-10 Automated blood basophils/100 leukocytes 0 % 0-10 Blood neutrophils automated count (number/volume) 20.7 10*3 1.8-7.8 Blood lymphocytes automated count (number/volume) 0.6 10*3 1.0-4.0 Blood monocytes automated count (number/volume) 1. 2 10*3 0.0-1.0 Automated eosinophil count 0.0 10*3/uL 0 .0-0.3 Automated blood basophil count (count/volume) 0.1 10*3/uL 0.0-0.1 Whole blood basic metabolic panel - 01/19 19:37 Serum or plasma sodium measurement (moles/volume) 139 mmol/L 135-145 Serum or plasma potassium measurement (moles/volume) 4.8 mmol/L 3.6-5.0 Serum or plasma chloride measurement (moles/volume) 112 mmol/L 98-107 Carbon dioxide 17 mmol/L 21-32 Serum or plasma anion gap determination (moles/volume) 10 mmol/L 5-14 Serum or plasma urea nitrogen measurement (mass/volume ) 40 mg/dL 7-18 Serum or plasma creatinine measurement (mass/volume) 1.74 mg/dL 0.60-1.30 Serum or plasma urea nitrogen/creatinine mass ratio 23 NRG Serum or plasma creatinine measurement w ith calculation of estimated glomerular filtration rate 38 NRG Serum or plasma glucose measurement (mass/volume) 102 mg/dL 70-105 Serum or plasma calcium measurement (mass/volume) 9.0 mg/dL 8.5-10.1 PT panel in platelet poor plasma by coag ulation assay - 10/06/18 19:37 Prothrombin time (PT) in platelet poor plasma by coagu lation assay 42.5 s 12.2-14.7 INR in platelet poor plasma or blood by coagulation as say 4.4 0.8-1.4 Blood manual differential performed dete ction - 10/06/18 19:37 Blood monocytes/100 leukocytes 2 % NRG Manual blood segmented neutrophils/100 leukocytes 66 % NRG Blood band neutrophils/100 leukocytes 24 % NRG Manual blood lymphocytes/100 leukocytes 7 % NRG Manual eosinophils/100 leukocytes in nose 0 % NRG Manual blood basophils/100 leukocytes 0 % NRG Blood erythrocyte morphology finding identification NORMAL NRG Blood toxic granules detection by light microscopy 1+ NRG Manual blood metamyelocytes/100 leukocytes 1 % NRG Complete urinalysis with reflex to cultu re - 10/06/18 20:00 Urine color determination YELLOW NRG Urine clarity determination CLEAR NR G Urine pH measurement by test strip 5 5-9 Specific gravity of urine by test strip 1.010 1.016-1.022 Urine protein assay by test strip, semi-quantitative 2+ NEGATIVE Urine glucose detection by automated test strip NE GATIVE NEGATIVE Erythrocytes detection in urine sediment by light micr oscopy 1+ NEGATIVE Urine ketones detection by automated test strip NE GATIVE NEGATIVE Urine nitrite detection by test strip NEGATIVE NEGATIVE Urine total bilirubin detection by test strip NEGA TIVE NEGATIVE Urine urobilinogen measurement by automated test strip (mass/volume) 1 mg/dL NORMAL Urine leukocyte esterase detection by dipstick 1+ NEGATIVE Automated urine sediment erythrocyte cou nt by microscopy (number/high power field) [HPF] NRG Automated urine sediment leukocyte count by microscopy (number/high power field) [HPF] NRG Bacteria detection in urine sediment by light microsco py NONE NRG Crystals detection in urine sediment by light microsco py PRESENT NRG Casts detection in urine sediment by light microscopy NONE NRG Mucus detection in urine sediment by light microscopy NEGATIVE NRG Complete urinalysis with reflex to culture NO NRG Amorphous sediment detection in urine sediment by ligh t microscopy FEW ANITHA URATES NRG Complete blood count (CBC) with automate d white blood cell (WBC) differential - 10/07/18 03:00 Blood leukocytes automated count (number/volume) 18.7 10*3/uL 4.3-11.0 Blood erythrocytes automated count (number/volume) 3.99 10*6/uL 4.35-5.85 Venous blood hemoglobin measurement (mass/volume) 11.8 g/dL 13.3-17.7 Blood hematocrit (volume fraction) 35 % 40-54 Automated erythrocyte mean corpuscular volume 87 [ foz_us] 80-99 Automated erythrocyte mean corpuscular h emoglobin (mass per erythrocyte) 30 pg 25-34 Automated erythrocyte mean corpuscular h emoglobin concentration measurement (mass/volume) 34 g/dL 32-36 Automated erythrocyte distribution width ratio 16. 3 % 10.0- 14.5 Automated blood platelet count (count/volume) 236 10*3/uL 130-400 Automated blood platelet mean volume measurement 9.9 [foz_us] 7.4-10.4 Automated blood neutrophils/100 leukocytes 89 % 42-75 Automated blood lymphocytes/100 leukocytes 6 % 12-44 Blood monocytes/100 leukocytes 5 % 0-12 Automated blood eosinophils/100 leukocytes 0 % 0-10 Automated blood basophils/100 leukocytes 0 % 0-10 Blood neutrophils automated count (number/volume) 16.7 10*3 1.8-7.8 Blood lymphocytes automated count (number/volume) 1.1 10*3 1.0-4.0 Blood monocytes automated count (number/volume) 1. 0 10*3 0.0-1.0 Automated eosinophil count 0.0 10*3/uL 0 .0-0.3 Automated blood basophil count (count/volume) 0.0 10*3/uL 0.0-0.1 PT panel in platelet poor plasma by coag ulation assay - 10/07/18 03:00 Prothrombin time (PT) in platelet poor plasma by coagu lation assay 30.4 s 12.2-14.7 INR in platelet poor plasma or blood by coagulation as say 2.9 0.8-1.4 Comprehensive metabolic panel - 10/07/18 03:00 Serum or plasma sodium measurement (moles/volume) 140 mmol/L 135-145 Serum or plasma potassium measurement (moles/volume) 4.6 mmol/L 3.6-5.0 Serum or plasma chloride measurement (moles/volume) 113 mmol/L 98-107 Carbon dioxide 18 mmol/L 21-32 Serum or plasma anion gap determination (moles/volume) 9 mmol/L 5-14 Serum or plasma urea nitrogen measurement (mass/volume ) 41 mg/dL 7-18 Serum or plasma creatinine measurement (mass/volume) 1.54 mg/dL 0.60-1.30 Serum or plasma urea nitrogen/creatinine mass ratio 27 NRG Serum or plasma creatinine measurement w ith calculation of estimated glomerular filtration rate 43 NRG Serum or plasma glucose measurement (mass/volume) 96 mg/dL 70-105 Serum or plasma calcium measurement (mass/volume) 9.1 mg/dL 8.5-10.1 Serum or plasma total bilirubin measurement (mass/volu me) 1.5 mg/dL 0.1-1.0 Serum or plasma alkaline phosphatase arsenio surement (enzymatic activity/volume) 299 U/L 40-136 Serum or plasma aspartate aminotransfera se measurement (enzymatic activity/volume) 26 U/L 5-34 Serum or plasma alanine aminotransferase measurement (enzymatic activity/volume) 74 U/L 0-55 Serum or plasma protein measurement (mass/volume) 5.6 g/dL 6.4-8.2 Serum or plasma albumin measurement (mass/volume) 2.5 g/dL 3.2-4.5 CALCIUM CORRECTED 10.3 mg/dL 8.5-10.1 THYROID STIMULATING HORMONE - 10/07/18 0 3:00 THYROID STIMULATING HORMONE 0.79 u[iU]/mL 0.35-4.94 IONIZED CALCIUM (SEND OFF) - 10/07/18 03 :00 Blood ionized calcium measurement (mass/volume) 1. 64 % 1.16- 1.32 Venous blood ionized calcium measurement adjusted to pH 7.4 (moles/volume) 1.65 % 1.16-1.32 pH measurement 7.40 NRG Serum or plasma intact pararthyroid horm one measurement (mass/volume) - 10/07/18 03:00 Serum or plasma intact parathyroid hormone measurement (mass/volume) 111.2 pg/mL 9.0-77.0 Bio-intact parathyroid hormone (PTH) measurement with calcium 8.1 % 8.5-10.5 Blood lactic acid measurement (moles/vol ume) - 10/07/18 05:25 Blood lactic acid measurement (moles/volume) 0.92 mmol/L 0.50-2.00 Complete blood count (CBC) with automate d white blood cell (WBC) differential - 10/08/18 03:10 Blood leukocytes automated count (number/volume) 15.9 10*3/uL 4.3-11.0 Blood erythrocytes automated count (number/volume) 4.00 10*6/uL 4.35-5.85 Venous blood hemoglobin measurement (mass/volume) 11.5 g/dL 13.3-17.7 Blood hematocrit (volume fraction) 35 % 40-54 Automated erythrocyte mean corpuscular volume 87 [ foz_us] 80-99 Automated erythrocyte mean corpuscular h emoglobin (mass per erythrocyte) 29 pg 25-34 Automated erythrocyte mean corpuscular h emoglobin concentration measurement (mass/volume) 33 g/dL 32-36 Automated erythrocyte distribution width ratio 15. 9 % 10.0- 14.5 Automated blood platelet count (count/volume) 257 10*3/uL 130-400 Automated blood platelet mean volume measurement 9.2 [foz_us] 7.4-10.4 Automated blood neutrophils/100 leukocytes 85 % 42-75 Automated blood lymphocytes/100 leukocytes 9 % 12-44 Blood monocytes/100 leukocytes 5 % 0-12 Automated blood eosinophils/100 leukocytes 1 % 0-10 Automated blood basophils/100 leukocytes 0 % 0-10 Blood neutrophils automated count (number/volume) 13.5 10*3 1.8-7.8 Blood lymphocytes automated count (number/volume) 1.5 10*3 1.0-4.0 Blood monocytes automated count (number/volume) 0. 7 10*3 0.0-1.0 Automated eosinophil count 0.2 10*3/uL 0 .0-0.3 Automated blood basophil count (count/volume) 0.1 10*3/uL 0.0-0.1 Whole blood basic metabolic panel - 03/21 03:10 Serum or plasma sodium measurement (moles/volume) 140 mmol/L 135-145 Serum or plasma potassium measurement (moles/volume) 4.4 mmol/L 3.6-5.0 Serum or plasma chloride measurement (moles/volume) 111 mmol/L 98-107 Carbon dioxide 18 mmol/L 21-32 Serum or plasma anion gap determination (moles/volume) 11 mmol/L 5-14 Serum or plasma urea nitrogen measurement (mass/volume ) 38 mg/dL 7-18 Serum or plasma creatinine measurement (mass/volume) 1.54 mg/dL 0.60-1.30 Serum or plasma urea nitrogen/creatinine mass ratio 25 NRG Serum or plasma creatinine measurement w ith calculation of estimated glomerular filtration rate 43 NRG Serum or plasma glucose measurement (mass/volume) 86 mg/dL 70-105 Serum or plasma calcium measurement (mass/volume) 9.2 mg/dL 8.5-10.1 Serum or plasma phosphate measurement (m ass/volume) - 10/08/18 03:10 Serum or plasma phosphate measurement (mass/volume) 3.8 mg/dL 2.3-4.7 Magnesium - 10/08/18 03:10 Magnesium 1.9 mg/dL 1.8-2.4 PT panel in platelet poor plasma by coag ulation assay - 10/08/18 03:10 Prothrombin time (PT) in platelet poor plasma by coagu lation assay 19.0 s 12.2-14.7 INR in platelet poor plasma or blood by coagulation as say 1.6 0.8-1.4 Complete blood count (CBC) with automate d white blood cell (WBC) differential - 10/09/18 07:37 Blood leukocytes automated count (number/volume) 12.5 10*3/uL 4.3-11.0 Blood erythrocytes automated count (number/volume) 4.06 10*6/uL 4.35-5.85 Venous blood hemoglobin measurement (mass/volume) 11.7 g/dL 13.3-17.7 Blood hematocrit (volume fraction) 35 % 40-54 Automated erythrocyte mean corpuscular volume 87 [ foz_us] 80-99 Automated erythrocyte mean corpuscular h emoglobin (mass per erythrocyte) 29 pg 25-34 Automated erythrocyte mean corpuscular h emoglobin concentration measurement (mass/volume) 33 g/dL 32-36 Automated erythrocyte distribution width ratio 16. 3 % 10.0- 14.5 Automated blood platelet count (count/volume) 304 10*3/uL 130-400 Automated blood platelet mean volume measurement 9.2 [foz_us] 7.4-10.4 Automated blood neutrophils/100 leukocytes 83 % 42-75 Automated blood lymphocytes/100 leukocytes 9 % 12-44 Blood monocytes/100 leukocytes 6 % 0-12 Automated blood eosinophils/100 leukocytes 2 % 0-10 Automated blood basophils/100 leukocytes 0 % 0-10 Blood neutrophils automated count (number/volume) 10.5 10*3 1.8-7.8 Blood lymphocytes automated count (number/volume) 1.1 10*3 1.0-4.0 Blood monocytes automated count (number/volume) 0. 7 10*3 0.0-1.0 Automated eosinophil count 0.2 10*3/uL 0 .0-0.3 Automated blood basophil count (count/volume) 0.0 10*3/uL 0.0-0.1 PT panel in platelet poor plasma by coag ulation assay - 10/09/18 07:37 Prothrombin time (PT) in platelet poor plasma by coagu lation assay 17.3 s 12.2-14.7 INR in platelet poor plasma or blood by coagulation as say 1.4 0.8-1.4 Whole blood basic metabolic panel - 04/21 07:37 Serum or plasma sodium measurement (moles/volume) 138 mmol/L 135-145 Serum or plasma potassium measurement (moles/volume) 4.2 mmol/L 3.6-5.0 Serum or plasma chloride measurement (moles/volume) 110 mmol/L 98-107 Carbon dioxide 19 mmol/L 21-32 Serum or plasma anion gap determination (moles/volume) 9 mmol/L 5-14 Serum or plasma urea nitrogen measurement (mass/volume ) 29 mg/dL 7-18 Serum or plasma creatinine measurement (mass/volume) 1.38 mg/dL 0.60-1.30 Serum or plasma urea nitrogen/creatinine mass ratio 21 NRG Serum or plasma creatinine measurement w ith calculation of estimated glomerular filtration rate 49 NRG Serum or plasma glucose measurement (mass/volume) 104 mg/dL 70-105 Serum or plasma calcium measurement (mass/volume) 9.3 mg/dL 8.5-10.1 Serum or plasma phosphate measurement (m ass/volume) - 10/09/18 07:37 Serum or plasma phosphate measurement (mass/volume) 3.4 mg/dL 2.3-4.7 Magnesium - 10/09/18 07:37 Magnesium 2.0 mg/dL 1.8-2.4 Serum or plasma lithium measurement (mol es/volume) - 10/09/18 07:37 BNP level 72.5 pg/mL <100.0 Complete blood count (CBC) with automate d white blood cell (WBC) differential - 10/10/18 05:35 Blood leukocytes automated count (number/volume) 10.3 10*3/uL 4.3-11.0 Blood erythrocytes automated count (number/volume) 3.90 10*6/uL 4.35-5.85 Venous blood hemoglobin measurement (mass/volume) 11.1 g/dL 13.3-17.7 Blood hematocrit (volume fraction) 34 % 40-54 Automated erythrocyte mean corpuscular volume 88 [ foz_us] 80-99 Automated erythrocyte mean corpuscular h emoglobin (mass per erythrocyte) 29 pg 25-34 Automated erythrocyte mean corpuscular h emoglobin concentration measurement (mass/volume) 33 g/dL 32-36 Automated erythrocyte distribution width ratio 15. 6 % 10.0- 14.5 Automated blood platelet count (count/volume) 281 10*3/uL 130-400 Automated blood platelet mean volume measurement 9.2 [foz_us] 7.4-10.4 Automated blood neutrophils/100 leukocytes 79 % 42-75 Automated blood lymphocytes/100 leukocytes 11 % 12-44 Blood monocytes/100 leukocytes 8 % 0-12 Automated blood eosinophils/100 leukocytes 2 % 0-10 Automated blood basophils/100 leukocytes 0 % 0-10 Blood neutrophils automated count (number/volume) 8.2 10*3 1.8-7.8 Blood lymphocytes automated count (number/volume) 1.1 10*3 1.0-4.0 Blood monocytes automated count (number/volume) 0. 8 10*3 0.0-1.0 Automated eosinophil count 0.2 10*3/uL 0 .0-0.3 Automated blood basophil count (count/volume) 0.0 10*3/uL 0.0-0.1 Whole blood basic metabolic panel - 05/21 05:35 Serum or plasma sodium measurement (moles/volume) 138 mmol/L 135-145 Serum or plasma potassium measurement (moles/volume) 4.1 mmol/L 3.6-5.0 Serum or plasma chloride measurement (moles/volume) 108 mmol/L 98-107 Carbon dioxide 19 mmol/L 21-32 Serum or plasma anion gap determination (moles/volume) 11 mmol/L 5-14 Serum or plasma urea nitrogen measurement (mass/volume ) 29 mg/dL 7-18 Serum or plasma creatinine measurement (mass/volume) 1.52 mg/dL 0.60-1.30 Serum or plasma urea nitrogen/creatinine mass ratio 19 NRG Serum or plasma creatinine measurement w ith calculation of estimated glomerular filtration rate 44 NRG Serum or plasma glucose measurement (mass/volume) 100 mg/dL 70-105 Serum or plasma calcium measurement (mass/volume) 9.2 mg/dL 8.5-10.1 PT panel in platelet poor plasma by coag ulation assay - 11/26/18 09:05 Prothrombin time (PT) in platelet poor plasma by coagu lation assay 14.5 s 12.2-14.7 INR in platelet poor plasma or blood by coagulation as say 1.1 0.8-1.4 Sputum Gram stain - 11/26/18 09:45 Sputum Gram stain No bacteria seen NRG Bacteria identification in bronchial spe cimen by aerobe culture - 11/26/18 09:45 Bacteria identification in bronchial specimen by aerob e culture NG NRG C FUNGUS SPUTUM FLUID TISSUE - 11/26/18 09:45 C FUNGUS SPUTUM FLUID TISSUE NG N RG Sputum Gram stain - 11/26/18 09:46 Sputum Gram stain No bacteria seen NRG Bacteria identification in bronchial spe cimen by aerobe culture - 11/26/18 09:46 Bacteria identification in bronchial specimen by aerob e culture NG NRG C FUNGUS SPUTUM FLUID TISSUE - 11/26/18 09:46 C FUNGUS SPUTUM FLUID TISSUE NG N RG Sputum Gram stain - 11/26/18 09:47 Sputum Gram stain No bacteria seen NRG Bacteria identification in bronchial spe cimen by aerobe culture - 11/26/18 09:47 QUANTITY OF GROWTH . NRG Bacteria identification in bronchial specimen by aerob e culture USUAL RESP NRG FTX;REPORTABLE <1000 CFU/ML NRG Mycobacterium species detection by organ ism specific culture - 11/26/18 09:47 C FUNGUS SPUTUM FLUID TISSUE - 11/26/18 09:47 Sputum Gram stain - 11/26/18 09:48 Sputum Gram stain TNP NRG Bacteria identification in bronchial spe cimen by aerobe culture - 11/26/18 09:48 Bacteria identification in bronchial specimen by aerob e culture NG NRG C FUNGUS SPUTUM FLUID TISSUE - 11/26/18 09:48 C FUNGUS SPUTUM FLUID TISSUE NG N RG Sputum Gram stain - 11/26/18 09:49 Sputum Gram stain TNP NRG Bacteria identification in bronchial spe cimen by aerobe culture - 11/26/18 09:49 Bacteria identification in bronchial specimen by aerob e culture NG NRG C FUNGUS SPUTUM FLUID TISSUE - 11/26/18 09:49 C FUNGUS SPUTUM FLUID TISSUE NG N RG Mycobacterium species detection by organ ism specific culture - 11/26/18 09:50 BODY FLUID DIFFERENTIAL - 11/26/18 10:15 Specimen source identification of body fluid RUL BRONCH WASH NRG Evaluation of color of body fluid COLORLESS NRG Determination of appearance of body fluid CLEAR NRG Manual body fluid polymorphonuclear cells/100 leukocyt es 83 % NRG Manual body fluid mononuclear cells/100 leukocytes 3 % NRG Manual body fluid lymphocytes/100 leukocytes 11 % NRG Other cells/100 leukocytes in body fluid by manual cou nt 3 % NRG BODY FLUID DIFFERENTIAL - 11/26/18 10:17 Specimen source identification of body fluid RUL BRONCH [place]AVAGE NRG Evaluation of color of body fluid COLORLESS NRG Determination of appearance of body fluid SLT CLDY NRG Manual body fluid polymorphonuclear cells/100 leukocyt es 6 % NRG Manual body fluid mononuclear cells/100 leukocytes 1 % NRG Manual body fluid lymphocytes/100 leukocytes 5 % NRG Other cells/100 leukocytes in body fluid by manual cou nt 88 % NRG BODY FLUID DIFFERENTIAL - 11/26/18 10:19 Specimen source identification of body fluid TYSON BRONCH [place]AVAGE NRG Evaluation of color of body fluid PINK NRG Determination of appearance of body fluid SLT CLDY NRG Manual body fluid polymorphonuclear cells/100 leukocyt es 30 % NRG Manual body fluid mononuclear cells/100 leukocytes 0 % NRG Manual body fluid lymphocytes/100 leukocytes 5 % NRG Other cells/100 leukocytes in body fluid by manual cou nt 65 % NRG CMP - 08/27/19 13:07 GLUCOSE 98 mg/dL 65-99 UREA NITROGEN (BUN) 25 mg/dL 7-25 CREATININE 1.60 mg/dL 0.70-1.11 eGFR NON-AFR. [place] 39 mL/min/1.73m2 > OR = 60 eGFR 45 mL/min/1.73m2 > OR = 60 BUN/CREATININE RATIO 16 (calc) 6-22 SODIUM 137 mmol/L 135-146 POTASSIUM 4.1 mmol/L 3.5-5.3 CHLORIDE 107 mmol/L 98-110 CARBON DIOXIDE 24 mmol/L 20-32 CALCIUM 9.0 mg/dL 8.6-10.3 PROTEIN, TOTAL 6.0 g/dL 6.1-8.1 ALBUMIN 3.7 g/dL 3.6-5.1 GLOBULIN 2.3 g/dL (calc) 1.9-3.7 ALBUMIN/GLOBULIN RATIO 1.6 (calc) 1.0-2. 5 BILIRUBIN, TOTAL 1.1 mg/dL 0.2-1.2 ALKALINE PHOSPHATASE 105 U/L 40-115 AST 16 U/L 10-35 ALT 15 U/L 9-46 CBC - 08/27/19 13:07 WHITE BLOOD CELL COUNT 6.9 Thousand/uL 3 .8-10.8 RED BLOOD CELL COUNT 5.03 Million/uL 4.2 0-5.80 HEMOGLOBIN 15.0 g/dL 13.2-17.1 HEMATOCRIT 45.0 % 38.5-50.0 MCV 89.5 fL 80.0-100.0 MCH 29.8 pg 27.0-33.0 MCHC 33.3 g/dL 32.0-36.0 RDW 14.8 % 11.0-15.0 PLATELET COUNT 176 Thousand/uL 140-400 MPV 10.5 fL 7.5-12.5 ABSOLUTE NEUTROPHILS 5582 cells/uL 1500- 7800 ABSOLUTE LYMPHOCYTES 518 cells/uL 850-39 00 ABSOLUTE MONOCYTES 607 cells/uL 200-950 ABSOLUTE EOSINOPHILS 166 cells/uL 15-500 ABSOLUTE BASOPHILS 28 cells/uL 0-200 NEUTROPHILS 80.9 % NRG LYMPHOCYTES 7.5 % NRG MONOCYTES 8.8 % NRG EOSINOPHILS 2.4 % NRG BASOPHILS 0.4 % NRG Encounters ACCT No. Visit Date/Time Discharge Status Pt. Type Provider Facility Loc./Unit Complaint [id number] 04/28/2020 13:45:00 04/28/2020 23:59: 59 CLS Outpatient SHREYA SALDIVAR [facility] [id number] 08/27/2019 11:00:00 Document Registration [id number] 10/20/2019 10:19:00 23:59:59 CLS Outpatient SHREYA SALDIVAR MD [facility] RAD FS R05 [id number] 09/06/2019 12:32:00 13:38:00 DIS Emergency CLARITA CASTILLO MD [facility] ER FS RT FOOT PAIN [id number] 08/05/2019 11:24:00 23:59:59 CLS Outpatient SHREYA SALDIVAR MD [facility] RAD FS M99.83 [id number] 02/05/2019 10:58:00 23:59:59 CLS Outpatient SHREYA SALDIVAR MD [facility] RAD FS J44.9 [id number] 12/01/2018 14:53:00 23:59:59 CLS Preadmit JOHN VELASQUEZ APRN [facility] RAD LUNG MASS [id number] 11/26/2018 07:21:00 14:27:00 DIS Outpatient MARCO ANTONIO BATISTA DO [facility] ENDO PNEUMONIA/SOB/LUNG MASS [id number] 11/25/2018 11:18:00 23:59:59 CLS Outpatient MARCO ANTONIO BATISTA DO [facility] RAD LUNG MASS [id number] 11/24/2018 06:44:00 15:48:00 DIS Outpatient MARCO ANTONIO BATISTA DO [facility] PREOP BRONCHOSCOPY [id number] 10/06/2018 11:56:00 15:15:00 DIS Inpatient ZEUS HUGHES, TAMMIE Souza [facility] 4TH SEPSIS
[2020-05-09 14:00] VITALS: BP 148/78
== END 2020-05-09 14:00 | disposition home or self-care (01) ==
LOC: EDUNIT# 11:48 → ER FS 11:50
DX: S41.111A Laceration without foreign body of right upper arm, initial encounter (principal); W18.39XA Other fall on same level, initial encounter; Z79.899 Other long term (current) drug therapy; Z88.5 Allergy status to narcotic agent; Z87.891 Personal history of nicotine dependence; E78.00 Pure hypercholesterolemia, unspecified; N40.0 Benign prostatic hyperplasia without lower urinary tract symptoms; M19.90 Unspecified osteoarthritis, unspecified site; M41.9 Scoliosis, unspecified; Z86.718 Personal history of other venous thrombosis and embolism; Z23 Encounter for immunization
CPT/HCPCS: 12001; 90715

== ENCOUNTER → 2020-05-31 | Outpatient (CLI) | payer MEDICARE, OTHER ==
--- NOTE | 2020-05-31 12:09 | Diagnostic Imaging Report ---
EXAMINATION: CHEST (PA AND LATERAL) CLINICAL INDICATION: 85-year-old male, history of cough. COMPARISON: October 20, 2019. October 07, 2018. CT chest October 06, 2018. FINDINGS: Heart size and mediastinal contours are unchanged. There is no identified pneumothorax. There is no pleural effusion. There is no identified interval focal airspace consolidation. There are persistent linear opacities in the left lower lobe which likely relate to scarring and/or atelectasis. IMPRESSION: 1. Linear opacities in the left lower lobe likely reflecting scarring and/or atelectasis. 2. No identified acute cardiopulmonary abnormality. Dictated by: Dictated on workstation # [id number]
== END ==
LOC: RAD FS 11:12
PROVIDERS: ATTEND Nurse Practitioner Family
DX: R91.8 Other nonspecific abnormal finding of lung field (principal)
CPT/HCPCS: 71046

== ENCOUNTER → 2020-06-10 | Outpatient (CLI) | payer MEDICARE, OTHER ==
--- NOTE | 2020-06-09 15:47 | NUR ---
CALLED MAXIMO WITH SCHEDULING, SHE WILL CALL PROVIDERS OFFICE TO GET LAB RESULTS. HR 06/09/2020 @ 3943
[2020-06-10 11:24] LABS: BILIRUBIN,TOTAL 0.8 MG/DL (0.1-1.0); CALCIUM 9.1 MG/DL (8.5-10.1); CREATININE SERUM 1.72 MG/DL (0.60-1.30); POTASSIUM 4.4 MMOL/L (3.6-5.0); TOTAL PROTEIN 6.5 GM/DL (6.4-8.2)
--- NOTE | 2020-06-10 14:28 | Diagnostic Imaging Report ---
EXAMINATION: CT Chest without contrast. TECHNIQUE: Multiple contiguous axial images were obtained through the chest without the use of intravenous contrast. All CT scans use one or more of the following dose optimizing techniques: automated exposure control, MA and/or KvP adjustment based on a patient size and exam type, or iterative reconstruction. HISTORY: COPD COMPARISON: 10/06/2018. FINDINGS: There is no edema or pneumonia. No pleural effusion. No pneumothorax. No suspicious nodules. There is scarring in the lingula and left lower lobe likely representing injury from prior severe pneumonia seen on 10/06/2018 CT. There is no axillary or supraclavicular lymphadenopathy. There is no mediastinal lymphadenopathy. Heart size is normal. There are mild coronary artery calcifications. No pericardial effusion. Aorta is normal in caliber. Limited views of the upper abdomen show a right adrenal adenoma. Simple cyst is seen in the left kidney. There are no suspicious osseus lesions. There is significant degenerative changes in the spine with scoliosis of the thoracolumbar spine. IMPRESSION: 1. Scarring in the lingula and left lower lobe consistent with prior infection seen on 10/06/2018. No suspicious nodules are seen. Dictated by: Dictated on workstation # [id number]
== END ==
LOC: RAD FS 10:29
PROVIDERS: ATTEND Family Medicine
DX: J44.9 Chronic obstructive pulmonary disease, unspecified (principal); N18.3 Chronic kidney disease, stage 3 (moderate)
CPT/HCPCS: 36415; 71250; 80053

== ENCOUNTER → 2020-08-09 | Outpatient (CLI) | payer MEDICARE, OTHER ==
[~2020-08-09] MED LIST changes: -PANT40TA3 PO; +PANT40TA52 PO
--- NOTE | 2020-08-09 10:50 | Diagnostic Imaging Report ---
INDICATION: Renal cyst followup. TECHNIQUE: Multiple contiguous axial images were obtained through the abdomen without the use of intravenous contrast. Auto Exposure Controls were utilized during the CT exam to meet ALARA standards for radiation dose reduction. There is no prior abdominal CT for comparison. Scans are compared to the lowermost cuts in the chest CT of 06/10/2020. The visualized portions of the lung bases demonstrates emphysematous changes with some bibasilar scarring. There is no pleural fluid or free intraperitoneal air. There are degenerative and scoliotic changes of the lumbar spine. The liver shows no focal lesion without contrast. Gallbladder appeared normal. The spleen, pancreas, and left adrenal gland appear normal. The right adrenal gland shows a small 1.4 cm nodule, with slightly negative Hounsfield units suggesting benign adenoma. This has not changed compared to the previous study. The right kidney shows a few scattered small nonocclusive stones but no hydronephrosis or mass. The left kidney also shows a few scattered nonocclusive stones. There is a cyst in the lower pole the left kidney measuring 2 cm, also unchanged compared to the prior study. There is no retroperitoneal mass or adenopathy. There is no ascites. Visualized bowel loops show no sign of obstruction or bowel wall thickening. IMPRESSION: There is a 2 cm cyst in the left kidney posteriorly and inferiorly, which is stable compared to the chest CT of 06/10/2020. There are small nonocclusive stones in both kidneys. There is a stable right adrenal adenoma. No acute finding otherwise seen. Dictated by: Dictated on workstation # [id number]
== END ==
LOC: RAD FS 09:01
PROVIDERS: ATTEND Emergency Medicine
DX: N20.0 Calculus of kidney (principal); N28.1 Cyst of kidney, acquired; D35.01 Benign neoplasm of right adrenal gland
CPT/HCPCS: 74150

== ENCOUNTER → 2020-08-10 | Outpatient (CLI) | payer MEDICARE, OTHER ==
--- NOTE | 2020-08-10 13:13 | Diagnostic Imaging Report ---
INDICATION: Back pain and scoliosis. TIME OF EXAM: 11:40 a.m. FINDINGS: S-shaped scoliotic curvature to the thoracolumbar spine is noted, convex to the right in the thoracic portion with convexity to the left in the lumbar portion. Angle of the lumbar portion is approximately 53 degrees. Angle of the thoracic portion is approximately 38 degrees. There is multilevel degenerative disc disease. No definite acute compression fracture is seen. IMPRESSION: Thoracolumbar scoliosis, as described. Dictated by: Dictated on workstation # [id number]
--- NOTE | 2020-08-10 13:16 | Diagnostic Imaging Report ---
INDICATION: Low back pain. Time of exam 11:49 a.m. FINDINGS: There is marked left convexity lumbar scoliotic curvature. Patient is severely demineralized, limiting evaluation. No definite acute compression fracture is seen. There is degenerative disc disease at all levels with disc space narrowing and marginal spurring. Aorta is calcified. IMPRESSION: Lumbar scoliosis and spondylosis with demineralization. No acute bony abnormality is detected. Dictated by: Dictated on workstation # [id number]
--- NOTE | 2020-08-10 13:21 | Diagnostic Imaging Report ---
INDICATION: Back pain. Time of exam 11:48 AM There is a mild right convexity thoracic scoliotic curvature with left convexity lumbar scoliotic curvature. Evaluation is limited due to patient demineralization. Vertebral body heights appear to be fairly well-maintained. There is some probable infiltrate in the left base. No fractures are seen. IMPRESSION: Thoracolumbar scoliosis and spondylosis. No acute compression fracture is detected. Dictated by: Dictated on workstation # [id number]
--- NOTE | 2020-08-10 13:22 | Diagnostic Imaging Report ---
INDICATION: Neck pain. TIME OF EXAM: 11:45 AM. FINDINGS: There is minimal anterolisthesis of C4 on C5. There is degenerative disc disease at the C5-6, C6-7, and C7-T1 levels with disc space narrowing and marginal spurring. The prevertebral tissues are normal. No fractures are seen. The odontoid is intact. IMPRESSION: Cervical spondylosis and spondylolisthesis. No acute bony abnormality is detected. Dictated by: Dictated on workstation # [id number]
== END ==
LOC: RAD FS 11:14
PROVIDERS: ATTEND Emergency Medicine
DX: M47.812 Spondylosis without myelopathy or radiculopathy, cervical region (principal); M43.12 Spondylolisthesis, cervical region; M41.86 Other forms of scoliosis, lumbar region; M47.816 Spondylosis without myelopathy or radiculopathy, lumbar region; M81.0 Age-related osteoporosis without current pathological fracture; M41.85 Other forms of scoliosis, thoracolumbar region; M47.814 Spondylosis without myelopathy or radiculopathy, thoracic region
CPT/HCPCS: 72040; 72070; 72081; 72100

== ENCOUNTER 2020-11-29 08:27 | Emergency (ER) | payer MEDICARE, OTHER ==
[~2020-11-29] VITALS: Ht 172.7 cm; Wt 74.8 kg
[2020-11-29] MEDS ORDERED: fentaNYL INJECTION 100 MCG/2 ML AMP IVP ONE (08:45)
[2020-11-29] MEDS ORDERED: ONDANSETRON 4 MG/2 ML (SDV) Z0FRAN IVP ONE (08:45)
[2020-11-29 09:02] LABS: BASOPHILS % (AUTO) 1 % (0-10); EOSINOPHILS # (AUTO) 0.3 10^3/uL (0.0-0.3); EOSINOPHILS % (AUTO) 5 % (0-10); HEMATOCRIT 49 % (40-54); HEMOGLOBIN 16.8 G/DL (13.3-17.7); LYMPHOCYTES # (AUTO) 0.5 X 10^3 (1.0-4.0); LYMPHOCYTES % (AUTO) 8 % (12-44); MEAN CORPUSCULAR HEMOGLOBIN 32 PG (25-34); MEAN CORPUSCULAR HGB CONC 34 G/DL (32-36); MEAN CORPUSCULAR VOLUME 94 FL (80-99); MEAN PLATELET VOLUME 9.4 FL (7.4-10.4); MONOCYTES # (AUTO) 0.6 X 10^3 (0.0-1.0); MONOCYTES % (AUTO) 10 % (0-12); NEUTROPHILS # (AUTO) 4.3 X 10^3 (1.8-7.8); NEUTROPHILS % (AUTO) 76 % (42-75); PLATELET COUNT 174 10^3/uL (130-400); WHITE BLOOD COUNT 5.7 10^3/uL (4.3-11.0)
[2020-11-29 09:23] LABS: CARBON DIOXIDE 23 MMOL/L (21-32); CHLORIDE 105 MMOL/L (98-107); POTASSIUM 4.3 MMOL/L (3.6-5.0); SODIUM 138 MMOL/L (135-145)
[2020-11-29 09:24] LABS: ALANINE AMINOTRANSFERASE < 5 U/L (0-55); ALKALINE PHOSPHATASE 15 U/L (40-136); BILIRUBIN,TOTAL 1.1 MG/DL (0.1-1.0); BUN/CREATININE RATIO 13; CALCIUM 9.3 MG/DL (8.5-10.1); CREATININE SERUM 1.39 MG/DL (0.60-1.30); GFR ESTIMATED 49; GLUCOSE 101 MG/DL (70-105); TOTAL PROTEIN 6.4 GM/DL (6.4-8.2)
[2020-11-29] MEDS ORDERED: HOLD METFORMIN - RECEIVED CONTRAST 20 ML VIAL IV SCH (10:00)
[2020-11-29] MEDS ORDERED: CATHETER FLUSH 10 ML SYR IV PRN (10:00)
[2020-11-29] MEDS ORDERED: NS 100 ML (IVPB) BAG IV ONE (10:00)
[2020-11-29] MEDS ORDERED: IOHEXOL 350 MG/ML 100 ML (OMNIPAQUE 350) VIAL IV ONE (10:00)
--- NOTE | 2020-11-29 10:51 | Diagnostic Imaging Report ---
EXAMINATION: CT Abdomen and Pelvis with intravenous contrast. TECHNIQUE: Multiple contiguous axial images were obtained through the abdomen and pelvis after the uneventful administration of intravenous contrast. All CT scans use one or more of the following dose optimizing techniques: automated exposure control, MA and/or KvP adjustment based on a patient size and exam type, or iterative reconstruction. HISTORY: Left upper quadrant abdominal pain. Fall. COMPARISON: 08/09/2020. FINDINGS: The heart is unremarkable. Bibasilar atelectasis is visualized superimposed on basilar scarring. A small hiatal hernia is present. Stable nodule in the right adrenal gland measuring 1.6 x 1.4 cm. The left adrenal gland is unchanged. Stable cyst in the inferior pole of the left kidney. No solid renal mass, hydronephrosis, or renal calculi bilaterally. No perinephric fat stranding is seen. The urinary bladder is mildly distended. Prostatomegaly is noted with the prostate measuring 6.1 cm in transverse dimension. The liver, spleen, and pancreas have a normal appearance. There is no pathologically enlarged mesenteric or retroperitoneal adenopathy. The bowel loops are nondilated. Scattered diverticula are present without evidence of acute diverticulitis. There is no free fluid or free air. An acute nondisplaced fracture is seen involving the posterior aspect of the left 11th rib. Old bilateral rib fractures are again noted. There is S-shaped curvature of the thoracolumbar spine. Bilateral pars defects are noted at L5 with grade 1 anterolisthesis of L5 on S1. There is calcified aortic and iliac atherosclerotic plaque. There is no free air, loculated collection, or adenopathy in the pelvis. IMPRESSION: 1. Acute nondisplaced fracture involving the left 11th rib posteriorly. No associated solid organ injury is seen in the abdomen or pelvis. Additional chronic rib fractures are again seen bilaterally. 2. Small hiatal hernia. 3. Stable right adrenal nodule. Dictated by: Dictated on workstation # [id number]
--- NOTE | 2020-11-29 11:11 | ED General ---
General Chief Complaint: Back Problems Stated Complaint: BACK PAIN Nursing Triage Note: Patient reports LUQ, left rib cage pain since yesterday, reports several falls within the last week. Bruising present to left side, patient reports increased pain with movement and coughing. Nursing Sepsis Screen: No Definite Risk Exam Limitations: No Limitations History of Present Illness Date Seen by Provider: Nov 29, 2020 Time Seen by Provider: 09:00 Initial Comments The patient is an 85-year-old male with history of Parkinson's disease with recent fall from standing 1 week ago who presents left-sided chest wall/rib pain. Pain is worse with deep breathing palpation and movement. Patient denies shortness of breath, fever chills, nausea vomiting sweats. Denies abdominal pain, urinary frequency urgency or hematuria. Patient has not been evaluated for his symptoms prior to today's ED visit. Patient uses a cane to walk. Timing/Duration: 1 Week Severity: Moderate Associated Systoms: Other Allergies and Home Medications Allergies Coded Allergies: morphine (Verified Adverse Reaction, Unknown, 10/06/18) confusion Home Medications Alprazolam 0.5 Mg Tablet, 0.5 MG PO TID PRN for ANXIETY, (Reported) Celecoxib 200 Mg Capsule, 200 MG PO BID, (Reported) Cephalexin 500 Mg Tablet, 500 MG PO QID Prescribed by: CLARITA CASTILLO on 09/06/19 1315 Pantoprazole Sodium 40 Mg Tablet.dr, 40 MG PO DAILY, (Reported) Tamsulosin HCl 0.4 Mg Cap.er.24h, 0.4 MG PO DAILY@1800, (Reported) Patient Home Medication List Home Medication List Reviewed: Yes Review of Systems Review of Systems Constitutional: see HPI EENTM: see HPI Respiratory: see HPI Cardiovascular: no symptoms reported Genitourinary: no symptoms reported Musculoskeletal: see HPI Skin: no symptoms reported Hematologic/Lymphatic: No Symptoms Reported Immunological/Allergic: no symptoms reported All Other Systems Reviewed Negative Unless Noted: Yes Past Vtpxhqn-Ifmixd-Eppfzo Hx Past Med/Social Hx: Reviewed Nursing Past Med/Soc Hx Patient Social History Alcohol Use: Denies Use Number of Drinks Today: II Alcohol Beverage of Choice: Other Smoking Status: Former Smoker Type Used: Cigarettes Former Smoker, Quit: Nov 24, 2015 2nd Hand Smoke Exposure: No Recent Infectious Disease Expo: No Recent Hopitalizations: Yes Immunizations Up To Date Tetanus Booster (TDap): Unknown PED Vaccines UTD: No Date of Pneumonia Vaccine: Sep 18, 2018 Date of Influenza Vaccine: Aug 06, 2018 Seasonal Allergies Seasonal Allergies: No Past Medical History Surgeries: Yes Respiratory: Yes Pneumonia, COPD Currently Using CPAP: No Currently Using BIPAP: No Cardiac: Yes Deep Vein Thrombosis, High Cholesterol Neurological: No Sexually Transmitted Disease: No HIV/AIDS: No Genitourinary: Yes Benign Prostatic Hyperpl Gastrointestinal: Yes (duodenitis) Musculoskeletal: Yes Arthritis, Back Injury, Scoliosis Endocrine: No HEENT: No Cancer: No Psychosocial: No Integumentary: No Blood Disorders: No Adverse Reaction/Blood Tranf: No Physical Exam Vital Signs Vital Signs - First Documented 11/29/20 08:31 Temp 36.6 Pulse 93 Resp 20 B/P (MAP) 151/93 (112) Pulse Ox 96 O2 Delivery Room Air Capillary Refill : Less Than 3 Seconds Height, Weight, BMI Height: 5'10.00" Weight: 172lbs. 0.0oz. [id number]; 25.00 BMI Method: General Appearance: No Apparent Distress, Anxious Eyes: Bilateral Eye Normal Inspection, Bilateral Eye PERRL, Bilateral Eye EOMI HEENT: PERRL/EOMI, Normal ENT Inspection, Pharynx Normal Neck: Normal Inspection, Non Tender, Supple Respiratory: Chest Non Tender, Lungs Clear, No Respiratory Distress Cardiovascular: Regular Rate, Rhythm Gastrointestinal: Non Tender, Soft Back: Normal Inspection, Other (Left lower lateral flank pain/tenderness reproducing complaints) Extremity: Normal Capillary Refill, No Calf Tenderness Neurologic/Psychiatric: Alert, Oriented x3, Other (Coarse resting tremor) Skin: Normal Color Focused Exam Sepsis Stage: Ruled Out Procedures/Interventions Suture Size: 4-0 Progress/Results/Core Measures Suspected Sepsis Recent Fever Within 48 Hours: No Infection Criteria Present: None New/Unexplained Altered Menta: No Sepsis Screen: No Definite Risk SIRS Temperature: Pulse: 93 Respiratory Rate: 20 Laboratory Tests 11/29/20 08:50: White Blood Count 5.7 Blood Pressure 151 /93 Mean: 112 Laboratory Tests 11/29/20 08:50: Creatinine 1.39H, Platelet Count 174, Total Bilirubin 1.1H Results/Orders Lab Results Laboratory Tests Test 11/29/20 08:50 Range/Units White Blood Count 5.7 4.3-11.0 10^3/uL Red Blood Count 5.25 4.35-5.85 10^6/uL Hemoglobin 16.8 13.3-17.7 G/DL Hematocrit 49 40-54 % Mean Corpuscular Volume 94 80-99 FL Mean Corpuscular Hemoglobin 32 25-34 PG Mean Corpuscular Hemoglobin Concent 34 32-36 G/DL Red Cell Distribution Width 14.6 H 10.0-14.5 % Platelet Count 174 130-400 10^3/uL Mean Platelet Volume 9.4 7.4-10.4 FL Immature Granulocyte % (Auto) 0 % Neutrophils (%) (Auto) 76 H 42-75 % Lymphocytes (%) (Auto) 8 L 12-44 % Monocytes (%) (Auto) 10 0-12 % Eosinophils (%) (Auto) 5 0-10 % Basophils (%) (Auto) 1 0-10 % Neutrophils # (Auto) 4.3 1.8-7.8 X 10^3 Lymphocytes # (Auto) 0.5 L 1.0-4.0 X 10^3 Monocytes # (Auto) 0.6 0.0-1.0 X 10^3 Eosinophils # (Auto) 0.3 0.0-0.3 10^3/uL Basophils # (Auto) 0.0 0.0-0.1 10^3/uL Immature Granulocyte # (Auto) 0.0 0.0-0.1 10^3/uL Sodium Level 138 135-145 MMOL/L Potassium Level 4.3 3.6-5.0 MMOL/L Chloride Level 105 98-107 MMOL/L Carbon Dioxide Level 23 21-32 MMOL/L Anion Gap 10 5-14 MMOL/L Blood Urea Nitrogen 18 7-18 MG/DL Creatinine 1.39 H 0.60-1.30 MG/DL Estimat Glomerular Filtration Rate 49 BUN/Creatinine Ratio 13 Glucose Level 101 70-105 MG/DL Calcium Level 9.3 8.5-10.1 MG/DL Corrected Calcium 9.3 8.5-10.1 MG/DL Total Bilirubin 1.1 H 0.1-1.0 MG/DL Aspartate Amino Transf (AST/SGOT) 17 5-34 U/L Alanine Aminotransferase (ALT/SGPT) < 5 0-55 U/L Alkaline Phosphatase 15 L 40-136 U/L Total Protein 6.4 6.4-8.2 GM/DL Albumin 4.0 3.2-4.5 GM/DL My Orders Orders - ZAN JAIN DO Cbc With Automated Diff (11/29/20 08:45) Comprehensive Metabolic Panel (11/29/20 08:45) Urinalysis (11/29/20 08:45) Fentanyl Injection (Sublimaze Injection (11/29/20 08:45) Ondansetron Injection (Zofran Injectio (11/29/20 08:45) Ct Abd/Pelv W (Appendicitis) (11/29/20 09:40) Iohexol Injection (Omnipaque 350 Mg/Ml 1 (11/29/20 10:00) Received Contrast (Hold Metformin- Contr (11/29/20 10:00) Sodium Chloride Flush (Catheter Flush Sy (11/29/20 10:00) Ns (Ivpb) (Sodium Chloride 0.9% Ivpb Bag (11/29/20 10:00) Medications Given in ED Current Medications Medications Dose Ordered Sig/Hema Route Start Time Stop Time Status Last Admin Dose Admin Fentanyl Citrate 50 mcg ONCE ONCE IVP 11/29/20 08:45 11/29/20 08:46 DC 11/29/20 08:59 50 MCG Iohexol 50 ml ONCE ONCE IV 11/29/20 10:00 11/29/20 10:01 DC 11/29/20 10:29 75 ML Ondansetron HCl 4 mg ONCE ONCE IVP 11/29/20 08:45 11/29/20 08:46 DC 11/29/20 08:59 4 MG Sodium Chloride 10 ml NEEDED PRN IV 11/29/20 10:00 11/29/20 10:29 10 ML Sodium Chloride 100 ml ONCE ONCE IV 11/29/20 10:00 11/29/20 10:01 DC 11/29/20 10:29 100 ML Vital Signs/I&O 11/29/20 08:31 Temp 36.6 Pulse 93 Resp 20 B/P (MAP) 151/93 (112) Pulse Ox 96 O2 Delivery Room Air Capillary Refill : Less Than 3 Seconds Blood Pressure Mean: 112 Departure Communication (Admissions) CT abdomen pelvis: Posterior 11th rib fracture without solid organ injury per radiology report. Lab and imaging studies reviewed. Patient with rib fracture without evidence of spleen injury. Will address pain and treat supportively. Home safety instruc tions reviewed. Patient to follow-up with PCP for further recommendations. Impression Primary Impression: Acute left flank pain Additional Impression: Left rib fracture Disposition: 01 HOME, SELF-CARE Condition: Stable Departure-Patient Inst. Decision time for Depature: 11:19 Referrals: SHREYA SALDIVAR MD (PCP/Family) Primary Care Physician Patient Instructions: Flank Pain, Rib Fractures in Adults Add. Discharge Instructions: Please use walker or cane at all times due to continued and ongoing risk of fall and injury. Take hydrocodone as needed for pain and follow-up with your PCP in the next 5 to 7 days for reevaluation. Return to the ED if new or worsening symptoms All discharge instructions reviewed with patient and/or family. Voiced understanding. Scripts Hydrocodone/Acetaminophen (Hydrocodone-Acetamin 5-325 mg) 1 Each Tablet 1 EACH PO Q6H, #20 TAB Prov: ZAN JAIN DO 11/29/20 ZAN JAIN DO Nov 29, 2020 11:11
[2020-11-29] MEDS ORDERED: ACHD5005 PO (11:20)
[2020-11-29 11:50] VITALS: BP 157/80
== END 2020-11-29 11:40 | disposition home or self-care (01) ==
LOC: EDUNIT# 08:27 → ER FS 08:29
DX: S22.32XA Fracture of one rib, left side, initial encounter for closed fracture (principal); F41.9 Anxiety disorder, unspecified; N40.0 Benign prostatic hyperplasia without lower urinary tract symptoms; Z87.891 Personal history of nicotine dependence; Z88.5 Allergy status to narcotic agent; W19.XXXA Unspecified fall, initial encounter
CPT/HCPCS: 36415; 74177; 80053; 85025

== ENCOUNTER → 2021-07-18 | Outpatient (CLI) | payer MEDICARE, OTHER ==
[~2021-07-18] MED LIST changes: +ACHD5005 PO
--- NOTE | 2021-07-18 12:35 | Diagnostic Imaging Report ---
CLINICAL INDICATION: Patient has been falling. Possible Parkinson's disease. EXAM: MRI of the brain performed without IV contrast. Sequences include sagittal T1, axial T2, axial flair, axial gradient echo, DWI, ADC map, and axial T1. COMPARISON: None. FINDINGS: There is no evidence of acute cerebral infarct, intracranial hemorrhage, or gross mass effect. There is diffuse brain parenchymal volume loss. There are focal, patchy, and confluent areas of high T2 signal white matter changes involving both cerebral hemispheres, periventricular regions, right cerebellar hemisphere, and prashant. There is normal conti-white matter distinction. There is no significant midline shift or herniation. The [place] vascular structures show no gross abnormality as visualized. The pituitary gland, sella, and suprasellar regions are unremarkable as visualized. There is no evidence of hydrocephalus. The basal cisterns are unremarkable. The skull, extracranial soft tissue, and orbits are unremarkable. There is complete consolidation of the right maxillary sinus with protrusion through or upon the medial right maxillary sinus into the right nasal cavity region. There is a small to moderate amount of mucosal thickening involving the frontal sinus and left maxillary sinus. There is moderate mucosal thickening involving the ethmoid sinus. The temporal bones show no significant abnormality. IMPRESSION: 1: There is no acute intracranial process. There is no evidence of acute cerebral infarct. If the patient has disorder of tremors, a Nuclear Medicine MIGUEL scan may help better evaluate between Parkinsonian syndrome or other cause of tremors. 2: There is diffuse brain parenchymal volume loss, chronic small vessel ischemic disease, and leukoaraiosis. 3: There is diffuse paranasal sinus disease. There is complete consolidation involving the right maxillary sinus with protrusion through or upon the medial right maxillary sinus into the right nasal cavity region. A right maxillary sinus mucocele or polyp may be considered. Dictated by: Dictated on workstation # [id number]
== END ==
LOC: RAD 10:15
PROVIDERS: ATTEND Family Medicine
DX: I67.82 Cerebral ischemia (principal); I67.81 Acute cerebrovascular insufficiency; J32.9 Chronic sinusitis, unspecified
CPT/HCPCS: 70551

== ENCOUNTER 2021-09-20 13:47 | Emergency (ER) | payer MEDICARE, OTHER ==
--- NOTE | 2021-09-20 14:38 | Diagnostic Imaging Report ---
PROCEDURE: CT lumbar spine without contrast. TECHNIQUE: Multiple contiguous axial images were obtained through the lumbar spine without the use of intravenous contrast. Sagittal and coronal reformations were then performed. Auto Exposure Controls were utilized during the CT exam to meet ALARA standards for radiation dose reduction. INDICATION: Low back pain extending into the right hip. There is marked left convexity lumbar scoliotic curvature. There appears to be normal lordotic curvature. There is minimal anterolisthesis of L5 on S1. Patient does appear to have bilateral pars defects at this level. Vertebral body heights are well-maintained. No definite acute compression fracture is identified. There is severe multilevel degenerative disc disease. There is significant disc space narrowing and marginal osteophyte formation at all levels. The paraspinous tissues are unremarkable. Aorta is heavily calcified. IMPRESSION: 1. Severe lumbar scoliosis and spondylosis without acute bony abnormality. 2. 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 Dictated by: Dictated on workstation # [id number]
--- NOTE | 2021-09-20 14:41 | ED Lower Extremity ---
General Chief Complaint: Lower Extremity Stated Complaint: RT FLANK/RT LEG PAIN Nursing Triage Note: Patient presents to the ED with c/o right leg/knee pain. He states his pain is usually in his right lower back but over the last two week he has had worsening pain extending down his right thigh to his right knee. He denies any recent injury. Source: patient History of Present Illness Date Seen by Provider: Sep 20, 2021 Time Seen by Provider: 13:52 Initial Comments 86-year-old male presenting with complaints of pain from his low back going down his right leg to the level of his knee. He states this pain has been getting worse in the last week and 1/2 to 2 weeks. He is unsure if he had fallen or had any injury prior to this pain. He admits that he does occasionally fall and has been told that he has Parkinson's. He does have some chronic low back pain anyway. He has had previous CT and MRI scans of his lumbar spine and been told they did not see anything other than age-related changes. He saw Dr. Saldivar yesterday in the clinic but states they just chatted and that nothing was done about the pain in his low back and right leg. He states the pain is worse in the mornings when he first tries to get up. As long as he is sitting or laying is present but when he tries to stand or get up and when he is walking he has the pain. He was not sure if there was anything could be done but he was tired of the recurrent pain and so he came to the emergency department. Severity: moderate Method of Injury: unknown Modifying Factors: Worse With Movement (When he first gets up in the morning or anytime he is going from sitting or lying to standing or walking) Allergies and Home Medications Allergies Coded Allergies: morphine (Verified Adverse Reaction, Unknown, 10/06/18) confusion Patient Home Medication List Home Medication List Reviewed: Yes Alprazolam (Alprazolam) 0.5 Mg Tablet, 0.5 MG PO TID PRN for ANXIETY, (Reported) Entered as Reported by: ASHLEY SON on 11/24/18 1539 Celecoxib (Celecoxib) 200 Mg Capsule, 200 MG PO BID, (Reported) Entered as Reported by: KATE TRINH on 10/06/18 1409 Cephalexin (Cephalexin) 500 Mg Tablet, 500 MG PO QID Prescribed by: CLARITA CASTILLO on 09/06/19 1315 Hydrocodone/Acetaminophen (Hydrocodone-Acetamin 5-325 mg) 1 Each Tablet, 1 EACH PO Q6H Prescribed by: ZAN JAIN on 11/29/20 1120 Meloxicam (Meloxicam) 7.5 Mg Tablet, 7.5 MG PO DAILY Prescribed by: CLARITA CASTILLO on 09/20/21 1532 Pantoprazole Sodium (Pantoprazole Sodium) 40 Mg Tablet.dr, 40 MG PO DAILY, (Reported) Entered as Reported by: KATE TRINH on 10/06/18 1409 Tamsulosin HCl (Tamsulosin HCl) 0.4 Mg Cap.er.24h, 0.4 MG PO DAILY@1800, (Reported) Entered as Reported by: ASHLEY SON on 11/24/18 1539 Review of Systems Constitutional: No chills, No fever EENTM: no symptoms reported Respiratory: no symptoms reported Cardiovascular: no symptoms reported Gastrointestinal: no symptoms reported Genitourinary: no symptoms reported Musculoskeletal: see HPI Skin: No change in color Psychiatric/Neurological: No Symptoms Reported Past Ophhchk-Yotgfm-Jautsf Hx Patient Social History Tobacco Use?: No Smoking Status: Former Smoker Substance use?: No Alcohol Use?: Yes Alcohol Frequency: Once in a while Pt feels they are or have been: No Immunizations Up To Date Tetanus Booster (TDap): Unknown PED Vaccines UTD: No First/Initial COVID19 Vaccinat: 2020 Second COVID19 Vaccination Anoop: 2020 Seasonal Allergies Seasonal Allergies: No Past Medical History Surgeries: Yes Respiratory: Yes Pneumonia, COPD Currently Using CPAP: No Currently Using BIPAP: No Cardiac: Yes Deep Vein Thrombosis, High Cholesterol Neurological: No Sexually Transmitted Disease: No HIV/AIDS: No Genitourinary: Yes Benign Prostatic Hyperpl Gastrointestinal: Yes (duodenitis) Musculoskeletal: Yes Arthritis, Back Injury, Scoliosis Endocrine: No HEENT: No Cancer: No Psychosocial: No Integumentary: No Blood Disorders: No Adverse Reaction/Blood Tranf: No Physical Exam Vital Signs Vital Signs - First Documented 09/20/21 13:52 Temp 36.4 Pulse 99 Resp 16 B/P (MAP) 145/88 (107) Pulse Ox 99 O2 Delivery Room Air Capillary Refill : Less Than 3 Seconds Height, Weight, BMI Height: 5'10.00" Weight: 172lbs. 0.0oz. 78.448006jb; 25.00 BMI Method: General Appearance: WD/WN, no apparent distress Cardiovascular: No normal peripheral pulses (1/4 DP and PT on right and left leg); regular rate, rhythm Gastrointestinal: normal bowel sounds, non tender, soft, no pulsatile mass Hips: right hip non-tender, right hip normal inspection, right hip normal range of motion, right hip no evidence of injury, right hip bone tenderness Legs: right leg non-tender, right leg normal inspection, right leg normal range of motion, right leg no evidence of injury Knees: right knee non-tender, right knee normal inspection, right knee normal range of motion Neurologic/Tendon: normal motor functions, normal tendon functions, other (ne gative SLR) Neurologic/Psychiatric: alert, oriented x 3 Skin: normal color, warm/dry Procedures/Interventions Suture Size: 4-0 Progress/Results/Core Measures Results/Orders My Orders Orders - CLARITA CASTILLO MD Ct Lumbar Spine Wo (09/20/21 14:07) Ct Pelvis Wo (09/20/21 14:07) Vital Signs/I&O 09/20/21 09/20/21 13:52 15:47 Temp 36.4 36.4 Pulse 99 99 Resp 16 16 B/P (MAP) 145/88 (107) 152/85 Pulse Ox 99 99 O2 Delivery Room Air Room Air Blood Pressure Mean: 107 Progress Progress Note #1: Progress Note Pt is requesting some medicine or something to help with his pain. Will obtain CT scan of Lumbar spine and pelvis without contrast to see if there is any acute injury to account for his symptoms. May try a medicine for arthritis since he has pain worse with just getting up and with walking. Progress Note #2: Progress Note CT scans do not show any acute compression fracture or spinal stenosis. He does have neuroforaminal narrowing. There is degenerative changes. We will try treating with some meloxicam for inflammation and pain. Counseled patient that we will start at 7.5 mg and he could be increased to 15 mg. If this is helping then he could have the clinic refill it. If he continues to have severe pain and symptoms he may need physical therapy or injections for pain management to help with his symptoms. Diagnostic Imaging Diagonstic Imaging: CT Plain Films/CT/US/NM/MRI: pelvis (and Lumbar spine) Comments [facility] [place], [place] NAME: [facility] REC#: [id number] PT STATUS: DEP ER : 1935 PHYSICIAN: CLARITA CASTILLO MD ADMIT DATE: 09/20/21/ER FS Signed Date of Exam:09/20/21 CT PELVIS WO CLINICAL INDICATION: Patient with right hip pain and leg pain worsening over last two weeks. EXAM: Axial CT scan of the pelvis performed without IV contrast with sagittal and coronal reformatted images. Coronal and sagittal reformatted images are created. All CT scans use one or more of the following dose optimizing techniques: automated exposure control, MA and/or KvP adjustment based on a patient size and exam type, or iterative reconstruction. COMPARISON: CT scan of the abdomen and pelvis performed with contrast dated 11/29/2020. FINDINGS: There is no acute fracture or dislocation involving the pelvis or hips. No significant change to the mildly hypertrophic spurs involving the bilateral acetabular regions and bilateral femoral head/neck junction regions. There is mild spurring and sclerosis of the symphysis pubis region. There is mild sclerosis of the sacroiliac joints bilaterally. There is no bony infiltrative process or destructive process seen. 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 There are diffuse disk bulges at the L3-L4, L4-L5, and L5-S1 levels with facet arthropathy. These findings were also seen on the comparison CT scan. The visualized intrapelvic and extrapelvic soft tissue structures are unremarkable. There is no significant soft tissue abnormality adjacent to the right hip. Enlarged prostate gland is seen measuring 6.2 cm in transverse dimension. There is diffuse bladder wall thickening with small amount of fluid within it. This may be related to incomplete distention, contraction. Cystitis should be excluded. This also may be seen with bladder outlet obstruction. There is diverticulosis with no CT evidence of diverticulitis on the given images. 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 3: Enlarged prostate gland. There is diffuse bladder wall thickening. This may be related to contraction or incomplete distention. Bladder dysfunction/bladder outlet obstruction from enlarged prostate gland may be considered. Cystitis should be excluded. 4: Diverticulosis with no CT evidence of diverticulitis seen on the given images. Dictated by: Dictated on workstation # [id number] Dict: 09/20/21 1441 Trans: 09/20/21 1714 AS [id number] Interpreted by: LAURENCE CROUCH MD Electronically signed by: LAURENCE CROUCH MD 09/20/211713 [facility] [place] [place] NAME: AMELIA [facility] REC#: [id number] PT STATUS: REG ER : 1935 PHYSICIAN: CLARITA CASTILLO MD ADMIT DATE: 09/20/21/ER FS Signed Date of Exam:09/20/21 CT LUMBAR SPINE WO PROCEDURE: CT lumbar spine without contrast. TECHNIQUE: Multiple contiguous axial images were obtained through the lumbar spine without the use of intravenous contrast. Sagittal and coronal reformations were then performed. Auto Exposure Controls were utilized during the CT exam to meet ALARA standards for radiation dose reduction. INDICATION: Low back pain extending into the right hip. There is marked left convexity lumbar scoliotic curvature. There appears to be normal lordotic curvature. There is minimal anterolisthesis of L5 on S1. Patient does appear to have bilateral pars defects at this level. Vertebral body heights are well-maintained. No definite acute compression fracture is identified. There is severe multilevel degenerative disc disease. There is significant disc space narrowing and marginal osteophyte formation at all levels. The paraspinous tissues are unremarkable. Aorta is heavily calcified. IMPRESSION: 1. Severe lumbar scoliosis and spondylosis without acute bony abnormality. 2. 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 Dictated by: Dictated on workstation # [id number] Dict: 09/20/21 1433 Trans: 09/20/21 1542 ELLIE [id number] Interpreted by: MARVA ZEPEDA MD Electronically signed by: MARVA ZEPEDA MD 09/20/21 1542 Reviewed: Reviewed by La Departure Impression Primary Impression: Musculoskeletal pain of right thigh Additional Impression: Low back pain radiating to right leg Disposition: 01 HOME, SELF-CARE Condition: Stable Departure-Patient Inst. Decision time for Depature: 15:28 Referrals: SHREYA SALDIVAR MD (PCP/Family) Primary Care Physician Patient Instructions: Low Back Pain ED, Muscle and Bone Pain (DC) Add. Discharge Instructions: Try taking the medicine for inflammation and pain in the joints and spine to see if that helps with your pain and symptoms. If this is not helping and you need something different or something stronger than you will need to see Dr. Saldivar again or a provider at [facility] to see about different medicines. All discharge instructions reviewed with patient and/or family. Voiced understanding. Scripts Meloxicam (Meloxicam) 7.5 Mg Tablet 7.5 MG PO DAILY for back/leg pain for 30 Days, #30 TAB 0 Refills Prov: CLARITA CASTILLO MD 09/20/21 CLARITA CASTILLO MD Sep 20, 2021 14:41
--- NOTE | 2021-09-20 14:55 | Diagnostic Imaging Report ---
CLINICAL INDICATION: Patient with right hip pain and leg pain worsening over last two weeks. EXAM: Axial CT scan of the pelvis performed without IV contrast with sagittal and coronal reformatted images. Coronal and sagittal reformatted images are created. All CT scans use one or more of the following dose optimizing techniques: automated exposure control, MA and/or KvP adjustment based on a patient size and exam type, or iterative reconstruction. COMPARISON: CT scan of the abdomen and pelvis performed with contrast dated 11/29/2020. FINDINGS: There is no acute fracture or dislocation involving the pelvis or hips. No significant change to the mildly hypertrophic spurs involving the bilateral acetabular regions and bilateral femoral head/neck junction regions. There is mild spurring and sclerosis of the symphysis pubis region. There is mild sclerosis of the sacroiliac joints bilaterally. There is no bony infiltrative process or destructive process seen. 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 There are diffuse disk bulges at the L3-L4, L4-L5, and L5-S1 levels with facet arthropathy. These findings were also seen on the comparison CT scan. The visualized intrapelvic and extrapelvic soft tissue structures are unremarkable. There is no significant soft tissue abnormality adjacent to the right hip. Enlarged prostate gland is seen measuring 6.2 cm in transverse dimension. There is diffuse bladder wall thickening with small amount of fluid within it. This may be related to incomplete distention, contraction. Cystitis should be excluded. This also may be seen with bladder outlet obstruction. There is diverticulosis with no CT evidence of diverticulitis on the given images. 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 3: Enlarged prostate gland. There is diffuse bladder wall thickening. This may be related to contraction or incomplete distention. Bladder dysfunction/bladder outlet obstruction from enlarged prostate gland may be considered. Cystitis should be excluded. 4: Diverticulosis with no CT evidence of diverticulitis seen on the given images. Dictated by: Dictated on workstation # [id number]
[2021-09-20] MEDS ORDERED: MELO7.5T46 PO (15:32)
[2021-09-20 15:47] VITALS: BP 152/85
== END 2021-09-20 15:48 | disposition home or self-care (01) ==
LOC: EDUNIT# 13:47 → ER FS 13:48
DX: M79.651 Pain in right thigh (principal); M54.41 Lumbago with sciatica, right side; J44.9 Chronic obstructive pulmonary disease, unspecified; N40.0 Benign prostatic hyperplasia without lower urinary tract symptoms; Z87.891 Personal history of nicotine dependence; Z79.899 Other long term (current) drug therapy
CPT/HCPCS: 72131; 72192

== ENCOUNTER → 2021-10-24 | Outpatient (CLI) | payer MEDICARE, OTHER ==
[~2021-10-24] MED LIST changes: +MELO7.5T46 PO
--- NOTE | 2021-10-24 14:17 | Diagnostic Imaging Report ---
INDICATION: Contusion of right knee, pain. COMPARISON: None available. TECHNIQUE: Three radiographs of the right knee dated 10/24/2021. FINDINGS: Two partially threaded screws with associated cerclage wires are noted transfixing the patella. Persistent transversely oriented lucency is seen extending across the mid aspect of the patella with the patella appearing in near anatomic alignment. No evidence of hardware complication. No new fracture or dislocation. No destructive osseous process. Minimal medial joint space narrowing. Minimal osteophytosis. No knee joint effusion. Mild background vascular calcifications. No suspicious radiopaque foreign body. IMPRESSION: Internally fixated patellar fracture in anatomic alignment without evidence of hardware complication. No additional new acute osseous abnormality with mild degenerative changes for age. Dictated by: Dictated on workstation # [id number]
== END ==
LOC: RAD FS 11:24
PROVIDERS: ATTEND Nurse Practitioner
DX: S82.001D Unspecified fracture of right patella, subsequent encounter for closed fracture with routine healing (principal); M17.11 Unilateral primary osteoarthritis, right knee; X58.XXXD Exposure to other specified factors, subsequent encounter
CPT/HCPCS: 73562

== ENCOUNTER → 2021-10-31 | Outpatient (CLI) | payer MEDICARE, OTHER ==
--- NOTE | 2021-10-31 09:33 | Diagnostic Imaging Report ---
Indication: Right hip pain AP and frog-leg view of right hip are obtained. FINDINGS: No acute fracture or dislocation is identified. No abnormal lytic or sclerotic focus is seen, and there is no radiopaque foreign body. IMPRESSION: No acute abnormality. Dictated by: Dictated on workstation # [id number]
--- NOTE | 2021-10-31 09:35 | Diagnostic Imaging Report ---
Indication: Right hip pain and pelvic pain Single AP view of the pelvis is obtained. Lumbar spondylosis is noted. Sacroiliac joints and pubic symphysis are intact. There is no evidence of hip dislocation. No fracture is seen. There is moderate atherosclerotic calcification. IMPRESSION: No acute abnormality is identified. Dictated by: Dictated on workstation # [id number]
--- NOTE | 2021-10-31 09:59 | Diagnostic Imaging Report ---
EXAMINATION: Lumbar spine at 9:27 AM. INDICATION: Low back pain. TECHNIQUE: Three views were obtained. FINDINGS: As noted on the CT lumbar spine exam performed on 09/20/2021, there is severe levoscoliosis of the lumbar spine with significant degenerative disc and bony disease throughout the lumbar spine. Those findings are again evident on this study and do not appear to have changed significantly. There is no fracture or acute bony abnormality appreciated. There is no sign of a paraspinal mass. IMPRESSION: 1. The levoscoliosis of the lumbar spine and the degenerative disc and bony disease seen previously are again evident and not significantly different. There is no acute abnormality identified. 2. If clinical concern regarding an underlying abnormality persists, then MRI would be recommended for further evaluation. Dictated by: Dictated on workstation # [id number]
== END ==
LOC: RAD FS 09:12
PROVIDERS: ATTEND Nurse Practitioner
DX: M41.86 Other forms of scoliosis, lumbar region (principal); M47.816 Spondylosis without myelopathy or radiculopathy, lumbar region; M51.36 Other intervertebral disc degeneration, lumbar region; R10.2 Pelvic and perineal pain
CPT/HCPCS: 72100; 72170; 73502

== ENCOUNTER → 2022-06-04 | Outpatient (CLI) | payer MEDICARE, OTHER ==
--- NOTE | 2022-06-04 16:46 | Diagnostic Imaging Report ---
Exam: Nuclear medicine whole body bone scan. Date: June 04, 2022. Indication: 87-year-old male, right lower leg pain. Comparison: CT pelvis September 20, 2021. CT lumbar spine September 20, 2021. CT abdomen and pelvis November 29, 2020. Head CT November 25, 2018. Findings: 26.0 mCi of technetium labeled MDP was administered. Delayed subsequent whole-body bone scan images were subsequently obtained. There is prominent radiotracer uptake in the region of the left humeral head and glenoid. There is severe thoracolumbar levoscoliosis. There are radiotracer avid foci of the right 11th, 10th, and 9th ribs which appear linear in orientation most suggestive of rib fractures. There are also radiotracer avid foci involving the left 11th rib which are more nonspecific although potentially could relate to additional rib fractures. There is radiotracer uptake in the region of the cervicothoracic junction which may be degenerative related although is not specific. There is no identified abnormal radiotracer uptake at the level of the right lower extremity. Impression: 1. Radiotracer uptake projecting near the left glenohumeral joint which is most likely arthritic related. 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 2. Contiguous radiotracer uptake and consecutive right-sided ribs most likely relating to right-sided rib fractures. 3. Nonspecific radiotracer avid foci involving the left 11th rib. This could reflect rib fractures although metastatic lesions are also considered. 4. No abnormal radiotracer uptake at the level of the right lower extremity. 5. Additional findings as above. Dictated by: Dictated on workstation # [id number]
== END ==
LOC: CARD 12:00
PROVIDERS: ATTEND Nurse Practitioner
DX: M79.661 Pain in right lower leg (principal); M41.85 Other forms of scoliosis, thoracolumbar region
CPT/HCPCS: 78306; A9503

== ENCOUNTER 2022-06-22 07:22 | Emergency (ER) | payer MEDICARE, OTHER ==
[~2022-06-22] VITALS: Ht 172.7 cm; Wt 61.2 kg
[2022-06-22 07:30] VITALS: BP 126/85
--- NOTE | 2022-06-22 07:44 | ED Fall/Injury ---
General Chief Complaint: Head/Cervical Problems Stated Complaint: FALL; HEAD INJ Nursing Triage Note: Patient reports he was rearranging his bedding at around 0500 this morning when he lost his balance and fell, hitting the back of his head on the floor. Bleeding laceration present to the left/back of patient's head. Patient reports he takes a blood thinner. Source: patient History of Present Illness Date Seen by Provider: Jun 22, 2022 Time Seen by Provider: 07:24 Initial Comments 87-year-old male presenting with complaints of fall with scalp laceration that happened around 430 or 5 this morning. He states he was trying to fix his bedding and had fallen backward. He hit his head on a flat object and denies an y loss of consciousness. He does report taking a blood thinner but does not remember what it is. He denies having nausea, vomiting, change in vision, numbness in his arms or legs. He is unsure of his last tetanus booster Occurred: this morning Severity: mild Injuries/Pain Location: head (occipital scalp lac) Context: lost balance Loss of Consciousness: no loss of consciousness Modifying Factors: Worse With Other (palpation of the area makes it hurt) Associated Symptoms (Fall): No Abdominal Pain, No Chest Pain, No Confusion, No Dizziness; Headache (mild at site of laceration); No Lightheadedness, No Muscle Spasms, No Nausea/Vomiting, No Neck Pain, No Ringing in Ears, No Seizures, No Shortness of Air, No Slurred Speech, No Vision Changes Allergies and Home Medications Allergies Coded Allergies: morphine (Verified Adverse Reaction, Unknown, 10/06/18) confusion Patient Home Medication List Home Medication List Reviewed: Yes Alprazolam (Alprazolam) 0.5 Mg Tablet, 0.5 MG PO TID PRN for ANXIETY, (Reported) Entered as Reported by: ASHLEY SON on 11/24/18 1539 Celecoxib (Celecoxib) 200 Mg Capsule, 200 MG PO BID, (Reported) Entered as Reported by: KATE TRINH on 10/06/18 1409 Cephalexin (Cephalexin) 500 Mg Tablet, 500 MG PO QID Prescribed by: CLARITA CASTILLO on 09/06/19 1315 Hydrocodone/Acetaminophen (Hydrocodone-Acetamin 5-325 mg) 1 Each Tablet, 1 EACH PO Q6H Prescribed by: ZAN JAIN on 11/29/20 1120 Meloxicam (Meloxicam) 7.5 Mg Tablet, 7.5 MG PO DAILY Prescribed by: CLARITA CASTILLO on 09/20/21 1532 Pantoprazole Sodium (Pantoprazole Sodium) 40 Mg Tablet.dr, 40 MG PO DAILY, (Reported) Entered as Reported by: KATE TRINH on 10/06/18 1409 Tamsulosin HCl (Tamsulosin HCl) 0.4 Mg Cap.er.24h, 0.4 MG PO DAILY@1800, (Reported) Entered as Reported by: ASHLEY SON on 11/24/18 1539 Review of Systems Review of Systems Constitutional: No chills, No dizziness, No fever Eyes: Denies Blurred Vision, Denies Photophobia, Denies Vision Changes Ears, Nose, Mouth, Throat: denies ear pain, denies ear discharge, denies nose pain, denies nose discharge, denies epistaxis, denies mouth pain Respiratory: no symptoms reported Cardiovascular: no symptoms reported Gastrointestinal: No nausea, No vomiting Genitourinary: no symptoms reported Musculoskeletal: no symptoms reported Skin: see HPI Psychiatric/Neurological: See HPI Past Ebeorym-Hwwcwy-Vgtgci Hx Patient Social History Tobacco Use?: No Smoking Status: Former Smoker Substance use?: No Alcohol Use?: Yes Alcohol Frequency: Once in a while Pt feels they are or have been: No Immunizations Up To Date Tetanus Booster (TDap): Unknown PED Vaccines UTD: No First/Initial COVID19 Vaccinat: 2020 Second COVID19 Vaccination Anoop: 2020 Seasonal Allergies Seasonal Allergies: No Past Medical History Surgery/Hospitalization HX: DVT Surgeries: Yes Respiratory: Yes Pneumonia, COPD Currently Using CPAP: No Currently Using BIPAP: No Cardiac: Yes Deep Vein Thrombosis, High Cholesterol Neurological: No Sexually Transmitted Disease: No HIV/AIDS: No Genitourinary: Yes Benign Prostatic Hyperpl Gastrointestinal: Yes (duodenitis) Musculoskeletal: Yes Arthritis, Back Injury, Scoliosis Endocrine: No HEENT: No Cancer: No Psychosocial: No Integumentary: No Blood Disorders: No Adverse Reaction/Blood Tranf: No Physical Exam Vital Signs Vital Signs - First Documented 06/22/22 07:30 Temp 35.8 Pulse 97 Resp 18 B/P (MAP) 126/85 (99) Pulse Ox 95 O2 Delivery Room Air Capillary Refill : Less Than 3 Seconds Height, Weight, BMI Height: 5'10.00" Weight: 172lbs. 0.0oz. 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, no motor/sensory deficits, alert, normal mood/affect, oriented x 3 Skin: warm/dry Alena Coma Score Best Eye Response: (4) Open Spontaneously Best Verbal Response: (5) Oriented Best Motor Response: (6) Obeys Commands Alena Total: 15 Procedures/Interventions Wound Location: Scalp Wound Length (cm): 4.2 Wound's Depth, Shape: linear, contused tissue, sub Q Wound Explored: clean Anesthesia: 1% Lidocaine Volume Anesthetic (ccs): 6 Staple Repair: Stapler 35W Number of Sutures: 5 (murali) Progress After obtaining verbal consent from the patient the wound was cleaned with chlorhexidine scrub soap and sterile water. Using 1% plain lidocaine a total of 6 mL were infiltrated for anesthesia. Then 5 murali were placed to approximate the wound edges. Patient tolerated procedure well without any immediate complication. Counseled on follow-up and return precautions. Advised to have murali out in 7 to 10 days. Progress/Results/Core Measures Results/Orders My Orders Orders - CLARITA CASTILLO MD Ct Head Wo (06/22/22 07:33) Dipht,Pertuss(Acell),Tet Adult (Boostrix (06/22/22 07:45) Medications Given in ED Current Medications Medications Dose Ordered Sig/Hema Route Start Time Stop Time Status Last Admin Dose Admin Diphtheria/ Tetanus/Acell Pertussis 0.5 ml ONCE ONCE IM 06/22/22 07:45 06/22/22 07:46 DC 06/22/22 08:12 0.5 ML Vital Signs/I&O 06/22/22 07:30 Temp 35.8 Pulse 97 Resp 18 B/P (MAP) 126/85 (99) Pulse Ox 95 O2 Delivery Room Air Blood Pressure Mean: 99 Progress Progress Note #1: Progress Note Counseled on need for tetanus update as well as CT head to ensure there is no internal bleeding since he has a blood thinner that he takes. Repaired the laceration with murali. Progress Note #2: Progress Note Patient tolerated laceration repair well without any immediate complication counseled on follow-up and return precautions. Advised to have the murali out in 7 to 10 days. Progress Note #3: Time: 08:12 Progress Note No acute intracranial hemorrhage or skull fracture on CT scan. Discharge to home with plan as above. Diagnostic Imaging Diagonstic Imaging: CT Plain Films/CT/US/NM/MRI: head Comments NAME: AMELIA BROWNE [facility] REC#: [id number] PT STATUS: REG ER : 1935 PHYSICIAN: CLARITA CASTILLO MD ADMIT DATE: 06/22/22/ER FS Draft Date of Exam:06/22/22 CT HEAD WO INDICATION: Fall, injury to head, patient is on blood thinners. TECHNIQUE: Multiple contiguous axial images were obtained through the brain without the use of intravenous contrast. Auto Exposure Controls were utilized during the CT exam to meet ALARA standards for radiation dose reduction. There is no previous CT for comparison. FINDINGS: There are diffuse atrophic changes. There are no extra-axial fluid collections. No intracranial hemorrhage. No intracranial mass or mass effect. No midline shift. The ventricles are normal in size and position. There are mild chronic changes in deep white matter. There is no acute intracranial finding. There is no calvarial fracture. There is left posterior scalp swelling. There is diffuse opacification of the ethmoid air cells and partial opacification of the right frontal sinus. 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 There is mild mucosal thickening of the left maxillary sinus. IMPRESSION: Atrophic changes with chronic changes in deep white matter. No acute intracranial finding or calvarial fracture. Evidence of sinus disease as described above, similar to previous MRI study of 07/18/2021. Dictated on workstation # [id number] Dict: 06/22/22 0759 Trans: 06/22/22 0809 [id number] Interpreted by: PATRICIA WESTON MD Electronically signed by: Reviewed: Reviewed by Me Departure Impression Primary Impression: Laceration of occipital region of scalp without complication Qualified Codes: S01.01XA - Laceration without foreign body of scalp, initial encounter Additional Impressions: Minor head injury without loss of consciousness Qualified Codes: S09.90XA - Unspecified injury of head, initial encounter Fall Qualified Codes: W19.XXXA - Unspecified fall, initial encounter Disposition: HOME, SELF-CARE Condition: Stable Departure-Patient Inst. Decision time for Depature: 08:13 Referrals: SHREYA SALDIVAR MD (PCP/Family) Primary Care Physician Patient Instructions: Preventing Falls ED, Laceration Repair With Murali ED, Minor Head Injury, Adult ED Add. Discharge Instructions: Keep wound clean and dry for the first 24 hours. After that you may wash with soap and water is normal. Do not soak the wound or get in any pools or lakes. The murali should be removed in 7 to 10 days so after June 29 they could be removed. You may return here to the emergency department or schedule an appointment with your primary care All discharge instructions reviewed with patient and/or family. Voiced understanding. Images Head/Face 1 - Laceration (4.2 cm laceration to the occiput. There is contusion to the tissue as well. No active bleeding. No skull deformity or step-off.) CLARTIA CASTILLO MD Jun 22, 2022 07:44
[2022-06-22] MEDS ORDERED: TETANUS,DIPTH,PERTUSS P/F (BOOSTRIX) 0.5 ML VIAL IM ONE (07:45)
--- NOTE | 2022-06-22 08:10 | Diagnostic Imaging Report ---
INDICATION: Fall, injury to head, patient is on blood thinners. TECHNIQUE: Multiple contiguous axial images were obtained through the brain without the use of intravenous contrast. Auto Exposure Controls were utilized during the CT exam to meet ALARA standards for radiation dose reduction. There is no previous CT for comparison. FINDINGS: There are diffuse atrophic changes. There are no extra-axial fluid collections. No intracranial hemorrhage. No intracranial mass or mass effect. No midline shift. The ventricles are normal in size and position. There are mild chronic changes in deep white matter. There is no acute intracranial finding. There is no calvarial fracture. There is left posterior scalp swelling. There is diffuse opacification of the ethmoid air cells and partial opacification of the right frontal sinus. 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 There is mild mucosal thickening of the left maxillary sinus. IMPRESSION: Atrophic changes with chronic changes in deep white matter. No acute intracranial finding or calvarial fracture. Evidence of sinus disease as described above, similar to previous MRI study of 07/18/2021. Dictated by: Dictated on workstation # [id number]
== END 2022-06-22 08:28 | disposition home or self-care (01) ==
LOC: EDUNIT# 07:22 → ER FS 07:23
DX: S09.90XA Unspecified injury of head, initial encounter (principal); S01.01XA Laceration without foreign body of scalp, initial encounter; Z87.891 Personal history of nicotine dependence; Z86.718 Personal history of other venous thrombosis and embolism; Z23 Encounter for immunization; Z79.01 Long term (current) use of anticoagulants; W01.198A Fall on same level from slipping, tripping and stumbling with subsequent striking against other object, initial encounter
CPT/HCPCS: 12001; 70450; 90715

== ENCOUNTER 2022-07-02 13:41 | Emergency (ER) | payer MEDICARE, OTHER ==
[~2022-07-02] VITALS: Ht 172.7 cm; Wt 61.7 kg
[2022-07-02 14:00] VITALS: BP 138/76
== END 2022-07-02 14:24 | disposition home or self-care (01) ==
LOC: EDUNIT# 13:41 → ER FS 13:43
DX: Z48.02 Encounter for removal of sutures (principal)

== ENCOUNTER 2023-02-01 10:37 | Emergency (ER) | payer MEDICARE, OTHER ==
[~2023-02-01] VITALS: Ht 170.2 cm; Wt 60.3 kg
[~2023-02-01 10:37] MED LIST changes: +ALBU8.5H6 INH; -RT-ALBUINH INH
[2023-02-01 10:42] VITALS: BP 143/92
--- NOTE | 2023-02-01 10:51 | ED Lower Extremity ---
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 Pt has been having recurrent falls lately, and pt states he noticed the swelling today morning with the overlying bruissing. He is not sure which fall caused it. Pt is able to ambulate. Denies SOB, chest pain, palpitations, head strike, LOC, dizzines. Allergies and Home Medications Allergies Coded Allergies: morphine (Verified Adverse Reaction, Unknown, 10/06/18) confusion Patient Home Medication List Home Medication List Reviewed: Yes Alprazolam (Alprazolam) 0.5 Mg Tablet, 0.5 MG PO TID PRN for ANXIETY, (Reported) Entered as Reported by: ASHLEY SON on 11/24/18 153 Celecoxib (Celecoxib) 200 Mg Capsule, 200 MG PO BID, (Reported) Entered as Reported by: KATE TRINH on 10/06/18 1409 Cephalexin (Cephalexin) 500 Mg Tablet, 500 MG PO QID Prescribed by: CLARITA CASTILLO on 09/06/19 1315 Hydrocodone/Acetaminophen (Hydrocodone-Acetamin 5-325 mg) 1 Each Tablet, 1 EACH PO Q6H Prescribed by: ZAN JAIN on 11/29/20 1120 Meloxicam (Meloxicam) 7.5 Mg Tablet, 7.5 MG PO DAILY Prescribed by: CLARITA CASTILLO on 09/20/21 1532 Pantoprazole Sodium (Pantoprazole Sodium) 40 Mg Tablet.dr, 40 MG PO DAILY, (Reported) Entered as Reported by: KATE TRINH on 10/06/18 1409 Tamsulosin HCl (Tamsulosin HCl) 0.4 Mg Cap.er.24h, 0.4 MG PO DAILY@1800, (Reported) Entered as Reported by: ASHLEY SON on 11/24/18 1539 Review of Systems Constitutional: no symptoms reported EENTM: no symptoms reported Respiratory: no symptoms reported Cardiovascular: no symptoms reported Gastrointestinal: no symptoms reported Genitourinary: no symptoms reported Musculoskeletal: joint pain Skin: no symptoms reported Psychiatric/Neurological: No Symptoms Reported Past Wxuzthf-Xubbit-Ajgvvi Hx Immunizations Up To Date Tetanus Booster (TDap): Unknown PED Vaccines UTD: No First/Initial COVID19 Vaccinat: 2020 Second COVID19 Vaccination Anoop: 2020 Third COVID19 Vaccination Date: 2020 Seasonal Allergies Seasonal Allergies: No Past Medical History Surgery/Hospitalization HX: DVT, COPD Surgeries: Yes Respiratory: Yes Pneumonia, COPD Currently Using CPAP: No Currently Using BIPAP: No Cardiac: Yes Deep Vein Thrombosis, High Cholesterol Neurological: No Sexually Transmitted Disease: No HIV/AIDS: No Genitourinary: Yes Benign Prostatic Hyperpl Gastrointestinal: Yes (duodenitis) Musculoskeletal: Yes Arthritis, Back Injury, Scoliosis Endocrine: No HEENT: No Cancer: No Psychosocial: No Integumentary: No Blood Disorders: No Adverse Reaction/Blood Tranf: No Physical Exam Vital Signs Vital Signs - First Documented 02/01/23 10:42 Temp 36.3 Pulse 94 Resp 20 B/P (MAP) 143/92 (109) Pulse Ox 95 O2 Delivery Room Air Capillary Refill : Height, Weight, BMI Height: 5'10.00" Weight: 172lbs. 0.0oz. 78.801975xq; 20.00 BMI Method:Stated General Appearance: WD/WN, no apparent distress HEENT: PERRL/EOMI Neck: non-tender, full range of motion Cardiovascular: regular rate, rhythm Respiratory: chest non-tender, lungs clear, normal breath sounds Gastrointestinal: normal bowel sounds, non tender, soft Hips: right hip non-tender, right hip normal inspection, right hip normal range of motion, right hip no evidence of injury Legs: right leg normal range of motion, right leg ecchymosis, right leg soft tissue tenderness, right leg swelling (Swelling present on medial side of upper lower leg, which is hard in consistency and tender to touch with purplish colored ruissing on top. Not warm to touch. NV bundle intact) Knees: right knee non-tender, right knee normal inspection, right knee normal range of motion, right knee no evidence of injury Ankles: right ankle non-tender, right ankle normal inspection, right ankle normal range of motion Neurologic/Tendon: normal sensation, normal motor functions, normal tendon functions Neurologic/Psychiatric: no motor/sensory deficits, alert, normal mood/affect, oriented x 3 Skin: ecchymosis (In the area of injury) Progress/Results/Core Measures Results/Orders My Orders Orders - JILLIAN PARKER MD Tibia Fibula 2 View Right (02/01/23 11:05) Us Venous Lower Ext Rt (02/01/23 11:06) Vital Signs/I&O 02/01/23 10:42 Temp 36.3 Pulse 94 Resp 20 B/P (MAP) 143/92 (109) Pulse Ox 95 O2 Delivery Room Air Progress Progress Note : Progress Note 1. RIGHT LOWER LEG HEMATOMA: - XR RIGHT TIB-FIB: No fracture or dislocation. Soft tissue swelling seen - Doppler u/s right lower leg: hematoma of right leg, no DVT - Advised ice application - Reassurance - Follow up with PCP in 3 to 5 days -The patient was seen in the ED, and treated appropriately to presentation at a specific point in time. Patient is informed that there is a possibility that disease and illness can evolve and change in acuity rapidly or slowly after patient is discharged from the ER. Precautionary advice given to the patient for immediate return to ER if symptoms worsen or do not resolve, and to seek emergency care sooner rather than later. Pt also advised on the importance of PCP follow up and compliance with management and follow up plan with PCP and/or specialist, as this is part of the management plan. Pt verbally expressed understanding. Diagnostic Imaging Diagonstic Imaging: Xray, Ultrasound Plain Films/CT/US/NM/MRI: leg Comments NAME: AMELIA BROWNE [facility] REC#: [id number] PT STATUS: REG ER : 1935 PHYSICIAN: JILLIAN PARKER MD ADMIT DATE: 02/01/23/ER FS Draft Date of Exam:02/01/23 US VENOUS LOWER EXT RT PROCEDURE: US right lower extremity venous. TECHNIQUE: Multiple real-time grayscale images were obtained over the right lower extremity in various projections. Additional spectral analysis and color Doppler duplex images were also obtained. INDICATION: Right lower extremity swelling COMPARISON: None FINDINGS: The right common femoral vein, femoral vein, deep femoral vein, and popliteal vein are normal in appearance. These vessels show normal compressibility, color flow and doppler augmentation. The visualized deep calf veins demonstrate no distinct intraluminal thrombus. In the area of discoloration of the medial right leg there is a circumscribed hypoechoic lesion in the subcutaneous fat. This is measured at 3.4 x 3.5 x 1.0 cm. This is reportedly debris-filled fluid collection when seen in real-time. IMPRESSION: 1. No sonographic evidence of deep venous thrombosis in the right lower extremity. 2. Hypoechoic lesion in the right leg, could represent a hematoma. Dictated on workstation # [id number] Dict: 02/01/23 1152 Trans: 02/01/23 1157 [facility] [id number] Interpreted by: PHILOMENA GERBER MD Electronically signed by: NAME: AMELIA BROWNE [facility] REC#: [id number] PT STATUS: REG ER : 1935 PHYSICIAN: JILLIAN PARKER MD ADMIT DATE: 02/01/23/ER FS Draft Date of Exam:02/01/23 TIBIA FIBULA 2 VIEW RIGHT HISTORY: Right leg pain and bruising after fall. TECHNIQUE: 2 views of the right tibia and fibula COMPARISON: None FINDINGS: No acute fracture or dislocation is seen in the right tibia and fibula. Alignment appears normal. There are mild degenerative changes in the right knee and right ankle. There is moderate soft tissue edema at the medial proximal right leg. There is internal fixation of the patella. IMPRESSION: 1. Moderate focal soft tissue swelling in the proximal right leg with no acute osseous abnormality seen. Dictated on workstation # [id number] Dict: 02/01/23 1135 Trans: 02/01/23 1141 [id number] Interpreted by: PHILOMENA GERBER MD Electronically signed by: Departure Impression Primary Impression: Hematoma of right lower leg Disposition: HOME, SELF-CARE Condition: Stable Departure-Patient Inst. Referrals: SHREYA SALDIVAR MD (PCP) Primary Care Physician Patient Instructions: HEMATOMA Add. Discharge Instructions: - Advised ice application - Reassurance - Follow up with PCP in 3 to 5 days All discharge instructions reviewed with patient and/or family. Voiced understanding. JILLIAN PARKER MD Feb 01, 2023 10:51
--- NOTE | 2023-02-01 11:41 | Diagnostic Imaging Report ---
HISTORY: Right leg pain and bruising after fall. TECHNIQUE: 2 views of the right tibia and fibula COMPARISON: None FINDINGS: No acute fracture or dislocation is seen in the right tibia and fibula. Alignment appears normal. There are mild degenerative changes in the right knee and right ankle. There is moderate soft tissue edema at the medial proximal right leg. There is internal fixation of the patella. IMPRESSION: 1. Moderate focal soft tissue swelling in the proximal right leg with no acute osseous abnormality seen. Dictated by: Dictated on workstation # [id number]
--- NOTE | 2023-02-01 11:58 | Diagnostic Imaging Report ---
PROCEDURE: US right lower extremity venous. TECHNIQUE: Multiple real-time grayscale images were obtained over the right lower extremity in various projections. Additional spectral analysis and color Doppler duplex images were also obtained. INDICATION: Right lower extremity swelling COMPARISON: None FINDINGS: The right common femoral vein, femoral vein, deep femoral vein, and popliteal vein are normal in appearance. These vessels show normal compressibility, color flow and doppler augmentation. The visualized deep calf veins demonstrate no distinct intraluminal thrombus. In the area of discoloration of the medial right leg there is a circumscribed hypoechoic lesion in the subcutaneous fat. This is measured at 3.4 x 3.5 x 1.0 cm. This is reportedly debris-filled fluid collection when seen in real-time. IMPRESSION: 1. No sonographic evidence of deep venous thrombosis in the right lower extremity. 2. Hypoechoic lesion in the right leg, could represent a hematoma. Dictated by: Dictated on workstation # [id number]
== END 2023-02-01 12:09 | disposition home or self-care (01) ==
LOC: EDUNIT# 10:37 → ER FS 10:38
DX: S80.11XA Contusion of right lower leg, initial encounter (principal); Z86.718 Personal history of other venous thrombosis and embolism; Z79.01 Long term (current) use of anticoagulants; W19.XXXA Unspecified fall, initial encounter
CPT/HCPCS: 73590

== ENCOUNTER 2023-03-20 19:05 | Emergency (ER) | payer MEDICARE, OTHER ==
[~2023-03-20] VITALS: Ht 170 cm; Wt 60.0 kg
[2023-03-20] MEDS ORDERED: ACETAMINOPHEN 500 MG TAB (TYLENOL) PO ONE (19:15)
[2023-03-20] MEDS ORDERED: TETANUS,DIPTH,PERTUSS P/F (BOOSTRIX) 0.5 ML VIAL IM ONE (19:15)
--- NOTE | 2023-03-20 19:19 | ED Fall/Injury ---
General Stated Complaint: FALL,HIT HEAD Source: patient, family Exam Limitations: no limitations History of Present Illness Date Seen by Provider: March 20, 2023 Time Seen by Provider: 19:07 Initial Comments 87yoM with PMH of Parkinson's and prior DVT on blood thinners coming in after he tripped, fell backwards, hit the back of his head. He did not pass out, remembers all events, no nausea or vomiting. He notes a wound to the back of his head. He came in due to the bleeding wound on the back of his head. It occurred just prior to arrival. His last tetanus shot was last year. He denies pain anywhere else including in his neck, back, or extremities. Allergies and Home Medications Allergies Coded Allergies: morphine (Verified Adverse Reaction, Unknown, 10/06/18) confusion Patient Home Medication List Home Medication List Reviewed: Yes Alprazolam (Alprazolam) 0.5 Mg Tablet, 0.5 MG PO TID PRN for ANXIETY, (Reported) Entered as Reported by: ASHLEY SON on 11/24/18 153 Celecoxib (Celecoxib) 200 Mg Capsule, 200 MG PO BID, (Reported) Entered as Reported by: KATE TRINH on 10/06/18 1409 Cephalexin (Cephalexin) 500 Mg Tablet, 500 MG PO QID Prescribed by: CLARITA CASTILLO on 09/06/19 1315 Hydrocodone/Acetaminophen (Hydrocodone-Acetamin 5-325 mg) 1 Each Tablet, 1 EACH PO Q6H Prescribed by: ZAN JAIN on 11/29/20 1120 Meloxicam (Meloxicam) 7.5 Mg Tablet, 7.5 MG PO DAILY Prescribed by: CLARITA CASTILLO on 09/20/21 1532 Pantoprazole Sodium (Pantoprazole Sodium) 40 Mg Tablet.dr, 40 MG PO DAILY, (Reported) Entered as Reported by: KATE TRINH on 10/06/18 1409 Tamsulosin HCl (Tamsulosin HCl) 0.4 Mg Cap.er.24h, 0.4 MG PO DAILY@1800, (Reported) Entered as Reported by: ASHLEY SON on 11/24/18 1539 Review of Systems Review of Systems Constitutional: No fever Eyes: No Symptoms Reported Ears, Nose, Mouth, Throat: no symptoms reported Respiratory: no symptoms reported Cardiovascular: no symptoms reported Gastrointestinal: no symptoms reported Genitourinary: no symptoms reported Musculoskeletal: see HPI Skin: see HPI Psychiatric/Neurological: No Symptoms Reported Past Mtzhlmz-Uqfivp-Nwxnsi Hx Patient Social History Substance use?: No Immunizations Up To Date Tetanus Booster (TDap): Unknown PED Vaccines UTD: No First/Initial COVID19 Vaccinat: 2020 Second COVID19 Vaccination Anoop: 2020 Third COVID19 Vaccination Date: 2020 Seasonal Allergies Seasonal Allergies: No Past Medical History Surgery/Hospitalization HX: DVT, COPD Surgeries: Yes Respiratory: Yes Pneumonia, COPD Currently Using CPAP: No Currently Using BIPAP: No Cardiac: Yes Deep Vein Thrombosis, High Cholesterol Neurological: No Sexually Transmitted Disease: No HIV/AIDS: No Genitourinary: Yes Benign Prostatic Hyperpl Gastrointestinal: Yes (duodenitis) Musculoskeletal: Yes Arthritis, Back Injury, Scoliosis Endocrine: No HEENT: No Cancer: No Psychosocial: No Integumentary: No Blood Disorders: No Adverse Reaction/Blood Tranf: No Physical Exam Vital Signs Vital Signs - First Documented 03/20/23 19:10 Temp 35.6 Pulse 75 Resp 16 B/P (MAP) 131/80 (97) Capillary Refill : Height, Weight, BMI Height: 5'10.00" Weight: 172lbs. 0.0oz. 78.902933mx; 20.00 BMI Method:Stated General Appearance: no apparent distress, other (Chronically ill-appearing) HEENT: PERRL/EOMI, normal ENT inspection, pharynx normal Neck: non-tender, full range of motion, supple, normal inspection Cardiovascular: regular rate, rhythm, no edema, no murmur Respiratory: chest non-tender, lungs clear, normal breath sounds, no respiratory distress, no accessory muscle use Gastrointestinal: normal bowel sounds, non tender, soft; No distended, No guarding, No rebound Back: no CVA tenderness, no vertebral tenderness, other (Scoliosis) Extremities: normal range of motion, non-tender, normal inspection, no pedal edema, no calf tenderness, normal capillary refill Neurologic/Psychiatric: no motor/sensory deficits, alert, normal mood/affect, oriented x 3 Skin: normal color, warm/dry, other (Laceration to the occiput) [place] Coma Score Best Eye Response: (4) Open Spontaneously Best Verbal Response: (5) Oriented Best Motor Response: (6) Obeys Commands Procedures/Interventions Wound Location: Scalp Other Wound Location occipital scalp Wound Length (cm): 5 Wound's Depth, Shape: irregular, sub Q Wound Explored: clean Irrigated w/ Saline (ccs): 500 Anesthesia: 1% Lidocaine Volume Anesthetic (ccs): 6 Staple Repair: Stapler 35W Progress The wound was cleaned, washed out with normal saline, and anesthetized with lidocaine. It was an irregular Y-shaped wound which required 8 eunice. Patient tolerated procedure well. Progress/Results/Core Measures Results/Orders My Orders Orders - KOBI MCLAIN MD Ct Head/Cervical Spine Wo (03/20/23 19:14) Acetaminophen Tablet (Tylenol Tablet) (03/20/23 19:15) Medications Given in ED Current Medications Medications Dose Ordered Sig/Hema Route Start Time Stop Time Status Last Admin Dose Admin Acetaminophen 1,000 mg ONCE ONCE PO 03/20/23 19:15 03/20/23 19:16 DC 03/20/23 19:22 1,000 MG Vital Signs/I&O 03/20/23 19:10 Temp 35.6 Pulse 75 Resp 16 B/P (MAP) 131/80 (97) Progress Progress Note : Progress Note 87-year-old male with above history coming in due to mechanical fall. ABCs were intact and vitals were stable on presentation with a GCS of 15. He had a 5 cm Y-shaped laceration to his occipital region with hematoma. CT head and cervical spine ordered and interpreted by me showing no obvious intracranial hemorrhage, no cervical spine fracture or dislocation. His last tetanus is already up-to-date within the past year roughly. The wound was cleaned and closed with 8 eunice which need to come out in the next 7 to 10 days. I believe the patient is otherwise stable for discharge with outpatient follow-up. He was sent home with strict return precautions. Diagnostic Imaging Diagonstic Imaging: CT (head and c spine) Comments [facility], [place] NAME: AMELIA BROWNE [facility] REC#: [id number] PT STATUS: REG ER : 1935 PHYSICIAN: KOBI MCLAIN MD ADMIT DATE: 03/20/23/ER FS Signed Date of Exam:03/20/23 CT HEAD/CERVICAL SPINE WO PROCEDURE: CT head and CT cervical spine without contrast. TECHNIQUE: Multiple contiguous axial images were obtained through the brain and cervical spine without the use of intravenous contrast. Sagittal and coronal reformations through the cervical spine were then performed. Auto Exposure Controls were utilized during the CT exam to meet ALARA standards for radiation dose reduction. INDICATION: Fall. Head and neck pain. COMPARISON: 06/22/2022. FINDINGS: CT HEAD: No large acute territorial ischemia, mass or hemorrhage. No midline shift or mass effect. Decreased attenuation is seen in the periventricular and subcortical white matter. The ventricles and cortical sulci are prominent. The basilar cisterns are patent and unremarkable. Scalp contusion is seen overlying the parieto-occipital regions at the midline posteriorly. The calvarium is intact. Retained secretions are seen throughout the paranasal sinuses. The mastoid air cells are clear. CT CERVICAL SPINE: No acute fracture or dislocation is seen in the cervical spine. No focal osseous lesion. Vertebral body heights are well-maintained. There is reversal of the normal lordotic curvature of the cervical spine centered at C5. There is grade 1 anterolisthesis of C4 on C5. The craniocervical junction is well-maintained. Mild degenerative changes are seen in the cervical spine with disc osteophyte complexes and uncovertebral arthropathy. Soft tissues of the neck are unremarkable. IMPRESSION: 1. No hemorrhage or focal intra-axial mass. No CT evidence of large acute territorial ischemia. 2. No acute fracture or dislocation in the cervical spine. 3. Scalp contusion overlying the midline posteriorly. No associated calvarial fracture. 4. Pansinusitis, most suggestive of chronic sinusitis. Dictated by: Dictated on workstation # [id number] Dict: 03/20/232009 Trans: 03/20/23 2017 PJE [id number] Interpreted by: ESTUARDO MICHAUD DO Electronically signed by: ESTUARDO MICHAUD DO 03/20/232016 Departure Impression Primary Impression: Laceration of occipital region of scalp without complication Qualified Codes: S01.01XA - Laceration without foreign body of scalp, initial encounter Disposition: 01 HOME, SELF-CARE Condition: Stable Departure-Patient Inst. Decision time for Depature: 20:35 Referrals: SHREYA SALDIVAR MD (PCP/Family) Primary Care Physician Patient Instructions: Laceration Repair With [facility] ED Add. Discharge Instructions: The eunice need to come out in 7-10 days. The bleeding should slow down significantly over the next 24 hours. If you have any purulent drainage coming from the wound that is concerning for infection, then please have a doctor look at it sooner. Work/School Note: Family Work Note Patient Received Medical Care In the Emergency Department On: March 20, 2023 Patient Will Be Able to Return to Work/School On: March 21, 2023 KOBI MCLAIN MD March 20, 2023 19:19
--- NOTE | 2023-03-20 20:16 | Diagnostic Imaging Report ---
PROCEDURE: CT head and CT cervical spine without contrast. TECHNIQUE: Multiple contiguous axial images were obtained through the brain and cervical spine without the use of intravenous contrast. Sagittal and coronal reformations through the cervical spine were then performed. Auto Exposure Controls were utilized during the CT exam to meet ALARA standards for radiation dose reduction. INDICATION: Fall. Head and neck pain. COMPARISON: 06/22/2022. FINDINGS: CT HEAD: No large acute territorial ischemia, mass or hemorrhage. No midline shift or mass effect. Decreased attenuation is seen in the periventricular and subcortical white matter. The ventricles and cortical sulci are prominent. The basilar cisterns are patent and unremarkable. Scalp contusion is seen overlying the parieto-occipital regions at the midline posteriorly. The calvarium is intact. Retained secretions are seen throughout the paranasal sinuses. The mastoid air cells are clear. CT CERVICAL SPINE: No acute fracture or dislocation is seen in the cervical spine. No focal osseous lesion. Vertebral body heights are well-maintained. There is reversal of the normal lordotic curvature of the cervical spine centered at C5. There is grade 1 anterolisthesis of C4 on C5. The craniocervical junction is well-maintained. Mild degenerative changes are seen in the cervical spine with disc osteophyte complexes and uncovertebral arthropathy. Soft tissues of the neck are unremarkable. IMPRESSION: 1. No hemorrhage or focal intra-axial mass. No CT evidence of large acute territorial ischemia. 2. No acute fracture or dislocation in the cervical spine. 3. Scalp contusion overlying the midline posteriorly. No associated calvarial fracture. 4. Pansinusitis, most suggestive of chronic sinusitis. Dictated by: Dictated on workstation # [id number]
[2023-03-20 20:59] VITALS: BP 127/81
== END 2023-03-20 21:01 | disposition home or self-care (01) ==
LOC: EDUNIT# 19:05 → ER FS 19:06
DX: S01.01XA Laceration without foreign body of scalp, initial encounter (principal); Z86.718 Personal history of other venous thrombosis and embolism; Z79.01 Long term (current) use of anticoagulants; W01.198A Fall on same level from slipping, tripping and stumbling with subsequent striking against other object, initial encounter
CPT/HCPCS: 70450; 72125

== ENCOUNTER 2023-03-21 19:24 | Emergency (ER) | payer MEDICARE, OTHER ==
[~2023-03-21] VITALS: Ht 172.7 cm; Wt 60.0 kg
[2023-03-21 19:33] VITALS: BP 117/75
[2023-03-21] MEDS ORDERED: LACTATED RINGERS 1,000 ML IV ONE (19:45)
[2023-03-21 20:13] LABS: BASOPHILS # (AUTO) 0.1 10^3/uL (0.0-0.1); BASOPHILS % (AUTO) 1 % (0-10); EOSINOPHILS # (AUTO) 0.6 10^3/uL (0.0-0.3); EOSINOPHILS % (AUTO) 7 % (0-10); HEMATOCRIT 42 % (40-54); HEMOGLOBIN 14.5 g/dL (13.3-17.7); LYMPHOCYTES # (AUTO) 1.2 10^3/uL (1.0-4.0); LYMPHOCYTES % (AUTO) 14 % (12-44); MEAN CORPUSCULAR HEMOGLOBIN 34 pg (25-34); MEAN CORPUSCULAR HGB CONC 35 g/dL (32-36); MEAN CORPUSCULAR VOLUME 97 fL (80-99); MEAN PLATELET VOLUME 9.3 fL (9.0-12.2); MONOCYTES # (AUTO) 0.9 10^3/uL (0.0-1.0); MONOCYTES % (AUTO) 11 % (0-12); NEUTROPHILS # (AUTO) 5.7 10^3/uL (1.8-7.8); NEUTROPHILS % (AUTO) 67 % (42-75); PLATELET COUNT 195 10^3/uL (130-400); WHITE BLOOD COUNT 8.5 10^3/uL (4.3-11.0)
--- NOTE | 2023-03-21 20:31 | Diagnostic Imaging Report ---
PROCEDURE: CT head and CT cervical spine without contrast. TECHNIQUE: Multiple contiguous axial images were obtained through the brain and cervical spine without the use of intravenous contrast. Sagittal and coronal reformations through the cervical spine were then performed. Auto Exposure Controls were utilized during the CT exam to meet ALARA standards for radiation dose reduction. INDICATION: Fall. Head and neck pain. COMPARISON: 03/20/2023. FINDINGS: CT HEAD: There is new increased attenuation lateral to the parenchyma of the right frontotemporal region without associated midline shift. Additional subdural hematoma is seen measuring 0.4 cm in thickness in this region. A small amount of hemorrhage is seen along the falx cerebri measuring 0.3 cm in thickness. No large acute territorial ischemia. No hydrocephalus. Skin eunice are seen in the posterior aspect of the scalp overlying the occipital region. The calvarium is intact. Pansinusitis is again noted. The mastoid air cells are clear. CT CERVICAL SPINE: No acute fracture or dislocation is seen in the cervical spine. No focal osseous lesion. Stable alignment of the cervical spine with grade 1 anterolisthesis of C4 on C5. Vertebral body heights are well-maintained. The craniocervical junction is well-maintained. Mild degenerative changes are seen in the cervical spine with disc osteophyte complexes and uncovertebral arthropathy. Soft tissues of the neck are unremarkable. The included lungs are clear. IMPRESSION: 1. Interval development of a small amount of subarachnoid hemorrhage in the right frontotemporal region, small subdural hematoma along the falx cerebri measuring 0.3 cm and small subdural hematoma along the right convexity measuring 0.4 cm in thickness. No associated midline shift or mass effect. Recommend continued follow-up, as indicated. 2. No large acute territorial ischemia. 3. Stable cervical spine. No new malalignment. Findings were called to the emergency department at 8:25 PM on 03/21/[address] David Farias. Dictated by: Dictated on workstation # [id number]
[2023-03-21 20:35] LABS: ALANINE AMINOTRANSFERASE < 5 U/L (0-55); ALBUMIN 3.9 GM/DL (3.2-4.5); ALKALINE PHOSPHATASE 143 U/L (40-136); BUN/CREATININE RATIO 12; CALCIUM 9.4 MG/DL (8.5-10.1); CARBON DIOXIDE 23 MMOL/L (21-32); CHLORIDE 106 MMOL/L (98-107); CREATININE SERUM 2.06 MG/DL (0.60-1.30); GFR ESTIMATED 31; GLUCOSE 96 MG/DL (70-105); POTASSIUM 4.3 MMOL/L (3.6-5.0); SODIUM 140 MMOL/L (135-145); TOTAL PROTEIN 6.5 GM/DL (6.4-8.2)
[2023-03-21 20:38] LABS: INR 1.6 (0.8-1.4); PROTHROMBIN TIME PATIENT 19.9 SEC (12.2-14.7)
--- NOTE | 2023-03-21 20:47 | ED Fall/Injury ---
General Chief Complaint: Trauma-Non Activation Stated Complaint: FALL Nursing Triage Note: Pt presents via wheelchair with c/o R ear pain and bleeding after a fall. Pt was seen at this ER last night for a fall with hematoma to back of the head, he has 7 eunice from last nights visit. Pt denies loss of consciousness. He states he slipped while using his walker. Source: patient Exam Limitations: no limitations History of Present Illness Date Seen by Provider: March 21, 2023 Time Seen by Provider: 19:30 Initial Comments This 87-year-old gentleman presents to the emergency room by private vehicle accompanied by his son with a fall injury to the right side of his head. Patient was seen in this ER yesterday for a fall at home. CT of the head and cervical spine was obtained. No intracranial hemorrhage or bony injury was identified on those images. Patient had a laceration to the posterior scalp which was stapled. He received a tetanus booster and was discharged home. He fell again tonight and struck the right side of his head on a picture frame that was on the floor. He has a laceration to the posterior ear and significant contusion to the ear. There was no reported loss of consciousness. Patient reports this was purely a mechanical fall. He was using a walker and slipped on a slick area of the floor. He denies any prodrome of lightheadedness, shortness of breath, dizziness, chest pain, or weakness. Patient does have Parkinson's. He is also on an anticoagulant for prior history of DVT. He does not know what medication he is taking. Patient states he takes 1 shot of alcohol per day. He does seem dry today with dry oral mucous membranes. Patient denies any other injuries. He has right leg pain which is a chronic problem and unchanged since the fall today. Patient is somewhat disoriented but alert and conversational. He is at baseline according to his son. Occurred: just prior to arrival Allergies and Home Medications Allergies Coded Allergies: morphine (Verified Adverse Reaction, Unknown, 10/06/18) confusion Patient Home Medication List Home Medication List Reviewed: Yes Alprazolam (Alprazolam) 0.5 Mg Tablet, 0.5 MG PO TID PRN for ANXIETY, (Reported) Entered as Reported by: ASHLEY SON on 11/24/18 4719 Celecoxib (Celecoxib) 200 Mg Capsule, 200 MG PO BID, (Reported) Entered as Reported by: KATE TRINH on 10/06/18 1409 Cephalexin (Cephalexin) 500 Mg Tablet, 500 MG PO QID Prescribed by: CLARITA CASTILLO on 09/06/19 1315 Hydrocodone/Acetaminophen (Hydrocodone-Acetamin 5-325 mg) 1 Each Tablet, 1 EACH PO Q6H Prescribed by: ZAN JAIN on 11/29/20 1120 Meloxicam (Meloxicam) 7.5 Mg Tablet, 7.5 MG PO DAILY Prescribed by: CLARITA CASTILLO on 09/20/21 1532 Pantoprazole Sodium (Pantoprazole Sodium) 40 Mg Tablet.dr, 40 MG PO DAILY, (Reported) Entered as Reported by: KATE TRINH on 10/06/18 1409 Tamsulosin HCl (Tamsulosin HCl) 0.4 Mg Cap.er.24h, 0.4 MG PO DAILY@1800, (Reported) Entered as Reported by: ASHLEY SON on 11/24/18 1539 Review of Systems Review of Systems Constitutional: no symptoms reported Eyes: No Symptoms Reported Ears, Nose, Mouth, Throat: see HPI Respiratory: no symptoms reported Cardiovascular: no symptoms reported Gastrointestinal: no symptoms reported Genitourinary: no symptoms reported Musculoskeletal: see HPI Skin: see HPI Psychiatric/Neurological: See HPI Past Chqueed-Jruxxz-Hibxtn Hx Patient Social History Tobacco Use?: No Smoking Status: Former Smoker Use of E-Cig and/or Vaping dev: No Substance use?: No Alcohol Use?: Yes Alcohol Frequency: Daily (1 shot) Immunizations Up To Date Tetanus Booster (TDap): Unknown PED Vaccines UTD: No First/Initial COVID19 Vaccinat: 2020 Second COVID19 Vaccination Anoop: 2020 Third COVID19 Vaccination Date: 2020 Seasonal Allergies Seasonal Allergies: No Past Medical History Surgery/Hospitalization HX: DVT, COPD Surgeries: Yes Abdominal (Hernia repair) Respiratory: Yes Pneumonia, COPD Currently Using CPAP: No Currently Using BIPAP: No Cardiac: Yes Deep Vein Thrombosis, High Cholesterol Neurological: Yes Parkinson's Disease Sexually Transmitted Disease: No HIV/AIDS: No Genitourinary: Yes Benign Prostatic Hyperpl Gastrointestinal: Yes (duodenitis) Musculoskeletal: Yes Arthritis, Back Injury, Scoliosis Endocrine: No HEENT: No Cancer: No Psychosocial: No Integumentary: No Blood Disorders: No Adverse Reaction/Blood Tranf: No Physical Exam Vital Signs Vital Signs - First Documented 03/21/23 19:33 Temp 36.3 Pulse 88 Resp 18 B/P (MAP) 117/75 (89) Capillary Refill : Less Than 3 Seconds Height, Weight, BMI Height: 5'10.00" Weight: 172lbs. 0.0oz. 78.554746ab; 20.00 BMI Method:Stated General Appearance: WD/WN, no apparent distress, thin HEENT: PERRL/EOMI, TMs normal, other (Oropharynx dry. Laceration through the posterior midportion of the external ear. Contusion of the central portion of the ear with significant bruising and edema. 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, no motor/sensory deficits, alert, normal mood/affect, other (Somewhat disoriented but at baseline per son.) Skin: normal color, warm/dry, other (Lacerations and contusions as above) [place] Coma Score Best Eye Response: (4) Open Spontaneously Best Verbal Response: (4) Confused Conversation (At baseline per son) Best Motor Response: (6) Obeys Commands [place] Total: 14 Procedures/Interventions Wound Location: Ears Other Wound Location Right ear Wound Length (cm): 1 Wound's Depth, Shape: linear, sub Q Wound Explored: clean Irrigated w/ Saline (ccs): 20 Betadine Prep?: Yes Suture Size: 4-0 Number of Sutures: 2 Sterile Dressing Applied?: Yes Progress Here was cleared from the wound. Wound was irrigated with sterile water. Betadine prep was applied. 2 interrupted sutures of 4-0 Prolene were used to approximate the wound. There was a small amount of bleeding still after approximation. Pressure was applied with gauze and gauze dressing was taped over the ear. Patient tolerated the procedure well. Progress/Results/Core Measures Results/Orders Lab Results Laboratory Tests Test 03/21/23 20:01 Range/Units White Blood Count 8.5 4.3-11.0 10^3/uL Red Blood Count 4.31 4.30-5.52 10^6/uL Hemoglobin 14.5 13.3-17.7 g/dL Hematocrit 42 40-54 % Mean Corpuscular Volume 97 80-99 fL Mean Corpuscular Hemoglobin 34 25-34 pg Mean Corpuscular Hemoglobin Concent 35 32-36 g/dL Red Cell Distribution Width 13.1 10.0-14.5 % Platelet Count 195 130-400 10^3/uL Mean Platelet Volume 9.3 9.0-12.2 fL Immature Granulocyte % (Auto) 1 % Neutrophils (%) (Auto) 67 42-75 % Lymphocytes (%) (Auto) 14 12-44 % Monocytes (%) (Auto) 11 0-12 % Eosinophils (%) (Auto) 7 0-10 % Basophils (%) (Auto) 1 0-10 % Neutrophils # (Auto) 5.7 1.8-7.8 10^3/uL Lymphocytes # (Auto) 1.2 1.0-4.0 10^3/uL Monocytes # (Auto) 0.9 0.0-1.0 10^3/uL Eosinophils # (Auto) 0.6 H 0.0-0.3 10^3/uL Basophils # (Auto) 0.1 0.0-0.1 10^3/uL Immature Granulocyte # (Auto) 0.0 0.0-0.1 10^3/uL Prothrombin Time 19.9 H 12.2-14.7 SEC INR Comment 1.6 H 0.8-1.4 Activated Partial Thromboplast Time 71 H 24-35 SEC Sodium Level 140 135-145 MMOL/L Potassium Level 4.3 3.6-5.0 MMOL/L Chloride Level 106 98-107 MMOL/L Carbon Dioxide Level 23 21-32 MMOL/L Anion Gap 11 5-14 MMOL/L Blood Urea Nitrogen 24 H 7-18 MG/DL Creatinine 2.06 H 0.60-1.30 MG/DL Estimat Glomerular Filtration Rate 31 BUN/Creatinine Ratio 12 Glucose Level 96 70-105 MG/DL Calcium Level 9.4 8.5-10.1 MG/DL Corrected Calcium 9.5 8.5-10.1 MG/DL Total Bilirubin 1.0 0.1-1.0 MG/DL Aspartate Amino Transf (AST/SGOT) 15 5-34 U/L Alanine Aminotransferase (ALT/SGPT) < 5 0-55 U/L Alkaline Phosphatase 143 H 40-136 U/L Total Protein 6.5 6.4-8.2 GM/DL Albumin 3.9 3.2-4.5 GM/DL Serum Alcohol < 10 <10 MG/DL My Orders Orders - JACQUELINE MENDENHALL MD Ct Head/Cervical Spine Wo (03/21/23 19:38) Alcohol (03/21/23 19:38) Cbc With Automated Diff (03/21/23 19:38) Comprehensive Metabolic Panel (03/21/23 19:38) Ua Culture If Indicated (03/21/23 19:38) Ed Iv/Invasive Line Start (03/21/23 19:38) Lactated Ringers (Lr 1000 Ml Iv Solution (03/21/23 19:45) Protime With Inr (03/21/23 20:25) Partial Thromboplastin Time (03/21/23 20:25) Medications Given in ED Current Medications Medications Dose Ordered Sig/Hema Route Start Time Stop Time Status Last Admin Dose Admin Lactated Ringer's 1,000 ml @ 0 mls/hr Q0M ONCE IV 03/21/23 19:45 03/21/23 19:46 DC 03/21/23 20:05 0 MLS/HR Vital Signs/I&O 03/21/23 19:33 Temp 36.3 Pulse 88 Resp 18 B/P (MAP) 117/75 (89) Blood Pressure Mean: 89 Progress Progress Note #1: Time: 20:54 Progress Note Patient and son were interviewed and patient was examined shortly after arrival. Laceration was noted to the ear. Repeat CT was obtained as this is a new fall since his CT last night and he is anticoagulated. CT was viewed by me. No acute fractures or hemorrhages were immediately identified. However, I received a call from the radiologist shortly thereafter describing a small subdural hematoma and small subarachnoid hemorrhage. Patient's anticoagulant is unknown. His son ran home to get his medications. If warfarin is being used, we will treat appropriately. Patient remains alert and with stable neurologic status. Transfer to [place] has been arranged with Dr. Vogt, ER physician at [place]. We discussed CODE STATUS, and patient would like to remain full code at this time. He has received approximately 500 mL of IV fluids due to his elevated creatinine. CBC was unremarkable. CMP was remarkable only for elevation in creatinine of 2.06 suggesting acute kidney injury when compared with baseline. INR was 1.6 consistent with his history of anticoagulant use. Urinalysis is pending. All labs were reviewed and interpreted by me. Transfer is pending at this time. Images are being clouded to [place]. Progress Note #2: Time: 21:17 Progress Note Right ear laceration was approximated. Son arrived with his medications, and the anticoagulant was identified as Xarelto 15 mg. Progress Note #3: Time: 21:22 Progress Note Dmitry was updated with information about the laceration repair, orientation to baseline, and use of Xarelto 15 mg. Diagnostic Imaging Diagonstic Imaging: CT Plain Films/CT/US/NM/MRI: c-spine, head Comments NAME: AMELIA BROWNE [facility] REC#: [id number] PT STATUS: REG ER : 1935 PHYSICIAN: JACQUELINE MENDENHALL MD ADMIT DATE: 03/21/23/ER FS Signed Date of Exam:03/21/23 CT HEAD/CERVICAL SPINE WO PROCEDURE: CT head and CT cervical spine without contrast. TECHNIQUE: Multiple contiguous axial images were obtained through the brain and cervical spine without the use of intravenous contrast. Sagittal and coronal reformations through the cervical spine were then performed. Auto Exposure Controls were utilized during the CT exam to meet ALARA standards for radiation dose reduction. INDICATION: Fall. Head and neck pain. COMPARISON: 03/20/2023. FINDINGS: CT HEAD: There is new increased attenuation lateral to the parenchyma of the right frontotemporal region without associated midline shift. Additional subdural hematoma is seen measuring 0.4 cm in thickness in this region. A small amount of hemorrhage is seen along the falx cerebri measuring 0.3 cm in thickness. No large acute territorial ischemia. No hydrocephalus. Skin eunice are seen in the posterior aspect of the scalp overlying the occipital region. The calvarium is intact. Pansinusitis is again noted. The mastoid air cells are clear. CT CERVICAL SPINE: No acute fracture or dislocation is seen in the cervical spine. No focal osseous lesion. Stable alignment of the cervical spine with grade 1 anterolisthesis of C4 on C5. Vertebral body heights are well-maintained. The craniocervical junction is well-maintained. Mild degenerative changes are seen in the cervical spine with disc osteophyte complexes and uncovertebral arthropathy. Soft tissues of the neck are unremarkable. The included lungs are clear. IMPRESSION: 1. Interval development of a small amount of subarachnoid hemorrhage in the right frontotemporal region, small subdural hematoma along the falx cerebri measuring 0.3 cm and small subdural hematoma along the right convexity measuring 0.4 cm in thickness. No associated midline shift or mass effect. Recommend continued follow-up, as indicated. 2. No large acute territorial ischemia. 3. Stable cervical spine. No new malalignment. Findings were called to the emergency department at 8:25 PM on 03/21/[address] Estuardo Farias. Dictated by: Dictated on workstation # [id number] Dict: 03/21/232009 Trans: 03/21/232033 [facility] [id number] Interpreted by: ESTUARDO FARIAS DO Electronically signed by: ESTUARDO FARIAS DO 03/21/232033 Departure Impression Primary Impression: Subdural hematoma Additional Impressions: Subarachnoid hemorrhage Fall on same level Qualified Codes: W18.30XA - Fall on same level, unspecified, initial encounter Laceration of right ear Qualified Codes: S01.311A - Laceration without foreign body of right ear, initial encounter Contusion of right ear Qualified Codes: S00.431A - Contusion of right ear, initial encounter Disposition: 02 XFER SHT-TRM HOSP Condition: Stable Transfer Transfer Reason: Exceeds level of care Time Spoke to Accepting Phy: 20:45 Transfer Progress Notes Transfer accepted by Dr. Vogt, ER physician at [place] in [place]. Transfer Time: 21:50 Transfer Facility: [facility] Method of Transfer: EMS Departure-Patient Inst. Referrals: SHREYA SALDIVAR MD (PCP/Family) Primary Care Physician Copy Copies To 1: SHREYA SALDIVAR MD, JOSHUA T MD March 21, 2023 20:47
== END 2023-03-21 21:21 | disposition short-term general hospital (02) ==
LOC: EDUNIT# 19:24 → ER FS 19:25
DX: S01.311A Laceration without foreign body of right ear, initial encounter (principal); S06.6X0A Traumatic subarachnoid hemorrhage without loss of consciousness, initial encounter; S06.5X0A Traumatic subdural hemorrhage without loss of consciousness, initial encounter; I82.409 Acute embolism and thrombosis of unspecified deep veins of unspecified lower extremity; Z87.891 Personal history of nicotine dependence; Z79.02 Long term (current) use of antithrombotics/antiplatelets; W01.198A Fall on same level from slipping, tripping and stumbling with subsequent striking against other object, initial encounter; Y93.01 Activity, walking, marching and hiking
CPT/HCPCS: 36415; 70450; 72125; 80053; 85025; 85610; 85730; 99285; G0480; 80320

== ENCOUNTER 2023-05-05 12:50 | Emergency (ER) | payer MEDICARE, OTHER ==
[~2023-05-05] VITALS: Ht 172 cm; Wt 55.0 kg
--- NOTE | 2023-05-05 13:02 | ED Head Injury ---
General Stated Complaint: HEAD INJ History of Present Illness Date Seen by Provider: May 05, 2023 Time Seen by Provider: 13:00 Initial Comments 87-year-old male with PMH of a recent fall resulting in a brain bleed and ear laceration month ago, is here with another fall today morning as he was getting out of bed, caused by tripping and falling and hitting his head on the corner of a trunk on the floor. Denies LOC, neck pain, blurry vision, nausea and vomiting, headache. Patient has an abrasion on his forehead. Patient is co ncerned because he just had a brain bleed recently and was taken off of his blood thinner due to that, and wants to make sure that he did not develop another beat brain bleed. Allergies and Home Medications Allergies Coded Allergies: morphine (Verified Adverse Reaction, Unknown, 10/06/18) confusion Patient Home Medication List Home Medication List Reviewed: Yes Alprazolam (Alprazolam) 0.5 Mg Tablet, 0.5 MG PO TID PRN for ANXIETY, (Reported) Entered as Reported by: ASHLEY SON on 11/24/18 153 Celecoxib (Celecoxib) 200 Mg Capsule, 200 MG PO BID, (Reported) Entered as Reported by: KATE TRINH on 10/06/18 1409 Cephalexin (Cephalexin) 500 Mg Tablet, 500 MG PO QID Prescribed by: CLARITA CASTILLO on 09/06/19 1315 Hydrocodone/Acetaminophen (Hydrocodone-Acetamin 5-325 mg) 1 Each Tablet, 1 EACH PO Q6H Prescribed by: ZAN JAIN on 11/29/20 1120 Meloxicam (Meloxicam) 7.5 Mg Tablet, 7.5 MG PO DAILY Prescribed by: CLARITA CASTILLO on 09/20/21 1532 Pantoprazole Sodium (Pantoprazole Sodium) 40 Mg Tablet.dr, 40 MG PO DAILY, (Reported) Entered as Reported by: KATE TRINH on 10/06/18 1409 Tamsulosin HCl (Tamsulosin HCl) 0.4 Mg Cap.er.24h, 0.4 MG PO DAILY@1800, (Reported) Entered as Reported by: ASHLEY SON on 11/24/18 1539 Review of Systems Review of Systems Constitutional: no symptoms reported Eyes: No Symptoms Reported Ears, Nose, Mouth, Throat: see HPI Respiratory: no symptoms reported Cardiovascular: no symptoms reported Gastrointestinal: no symptoms reported Genitourinary: no symptoms reported Musculoskeletal: no symptoms reported Skin: other (Forehead abrasion) Psychiatric/Neurological: No Symptoms Reported Endocrine: No Symptoms Reported Hematologic/Lymphatic: No Symptoms Reported Past Dfxgowk-Ccbcza-Nyatuc Hx Immunizations Up To Date Tetanus Booster (TDap): Unknown PED Vaccines UTD: No First/Initial COVID19 Vaccinat: 2020 Second COVID19 Vaccination Anoop: 2020 Third COVID19 Vaccination Date: 2020 Seasonal Allergies Seasonal Allergies: No Past Medical History Surgery/Hospitalization HX: DVT, COPD Surgeries: Yes Abdominal Respiratory: Yes Pneumonia, COPD Currently Using CPAP: No Currently Using BIPAP: No Cardiac: Yes Deep Vein Thrombosis, High Cholesterol Neurological: Yes Parkinson's Disease Sexually Transmitted Disease: No HIV/AIDS: No Genitourinary: Yes Benign Prostatic Hyperpl Gastrointestinal: Yes (duodenitis) Musculoskeletal: Yes Arthritis, Back Injury, Scoliosis Endocrine: No HEENT: No Cancer: No Psychosocial: No Integumentary: No Blood Disorders: No Adverse Reaction/Blood Tranf: No Physical Exam Vital Signs Capillary Refill : Height, Weight, BMI Height: 5'10.00" Weight: 172lbs. 0.0oz. 78.371270kt; 20.00 BMI Method:Stated General Appearance: WD/WN, no apparent distress HEENT: PERRL/EOMI, TMs normal Neck: non-tender, full range of motion, supple, normal inspection Cardiovascular: regular rate, rhythm Respiratory: lungs clear Gastrointestinal: non tender, soft Back: normal inspection, no vertebral tenderness Extremities: normal range of motion, non-tender, normal inspection, no pedal edema Psychiatric: alert, oriented x 3 [place] Nerves: normal hearing, normal speech, PERRL Coordination/Gait: normal finger to nose, normal gait Motor/Sensory: no motor deficit, no sensory deficit Skin: normal color [place] Coma Score Best Eye Response: (4) Open Spontaneously Best Verbal Response: (5) Oriented Best Motor Response: (6) Obeys Commands [place] Total: 15 Procedures/Interventions Suture Size: 4-0 Progress/Results/Core Measures Results/Orders My Orders Orders - JILLIAN PARKER MD Ct Head Wo (05/05/23 13:14) Bacitracin Ointment (Bacitracin Ointment (05/05/23 14:06) Progress Progress Note : Progress Note 1. FALL/ LEFT FRONTAL SCALP ABRASION: - CT HEAD: no acute findings - Antibiotic ointment to abrasion - Wound care instructions given - Concussion precautions given - Return to ER if symptoms worsening. Diagnostic Imaging Diagonstic Imaging: CT Plain Films/CT/US/NM/MRI: head Comments [facility] [place] NAME: AMELIA BROWNE [facility] REC#: [id number] PT STATUS: REG ER : 1935 PHYSICIAN: JILLIAN PARKER MD ADMIT DATE: 05/05/23/ER FS Draft Date of Exam:05/05/23 CT HEAD WO PROCEDURE: CT head without contrast. TECHNIQUE: Multiple contiguous axial images were obtained through the brain without the use of intravenous contrast. Auto Exposure Controls were utilized during the CT exam to meet ALARA standards for radiation dose reduction. INDICATION: Trauma. Head injury. Fall. COMPARISON: 03/21/2023. FINDINGS: Mild to moderate generalized parenchymal volume loss. No CT evidence of territorial infarction. No intracranial hemorrhage, mass effect, hydrocephalus or extra-axial fluid collections. No CT evidence of a territorial infarction. Osseous structures are intact. Complete opacification of the maxillary and frontal sinuses. There is also opacification of most of the ethmoid sinuses with frothy secretions in the sphenoid sinus. The mastoids are clear. IMPRESSION: 1. No acute intracranial CT findings. 2. Pansinusitis is similar to the prior exam. Dictated on workstation # [id number] Dict: 05/05/23 1358 Trans: 05/05/23 1402 [facility] [id number] Interpreted by: KERRY RYAN MD Electronically signed by: Departure Impression Primary Impression: Fall Additional Impression: Abrasion of scalp, initial encounter Disposition: 01 HOME, SELF-CARE Condition: Stable Departure-Patient Inst. Referrals: SHREYA SALDIVAR MD (PCP/Family) Primary Care Physician Patient Instructions: Abrasions ED, Dealing With Higher Risk of Falling From the Drugs You Take, Preventing Falls ED, Taking care of cuts, scrapes, and puncture wounds Add. Discharge Instructions: - Antibiotic ointment to abrasion - Wound care instructions given - Concussion precautions given - Return to ER if symptoms worsening. JILLIAN PARKER MD May 05, 2023 13:02
--- NOTE | 2023-05-05 14:03 | Diagnostic Imaging Report ---
PROCEDURE: CT head without contrast. TECHNIQUE: Multiple contiguous axial images were obtained through the brain without the use of intravenous contrast. Auto Exposure Controls were utilized during the CT exam to meet ALARA standards for radiation dose reduction. INDICATION: Trauma. Head injury. Fall. COMPARISON: 03/21/2023. FINDINGS: Mild to moderate generalized parenchymal volume loss. No CT evidence of territorial infarction. No intracranial hemorrhage, mass effect, hydrocephalus or extra-axial fluid collections. No CT evidence of a territorial infarction. Osseous structures are intact. Complete opacification of the maxillary and frontal sinuses. There is also opacification of most of the ethmoid sinuses with frothy secretions in the sphenoid sinus. The mastoids are clear. IMPRESSION: 1. No acute intracranial CT findings. 2. Pansinusitis is similar to the prior exam. Dictated by: Dictated on workstation # [id number]
[2023-05-05] MEDS ORDERED: BACITRACIN OINTMENT 28 GM TUBE TOP STA (14:06)
[2023-05-05 14:18] VITALS: BP 115/74
== END 2023-05-05 14:16 | disposition home or self-care (01) ==
LOC: EDUNIT# 12:50 → ER FS 12:54
DX: S00.01XA Abrasion of scalp, initial encounter (principal); W06.XXXA Fall from bed, initial encounter; W22.09XA Striking against other stationary object, initial encounter
CPT/HCPCS: 70450